=== PATIENT | female | born 1950 | race Hispanic/Latino ===

== ENCOUNTER → 2022-11-18 | Outpatient (CLI) | payer MEDICARE | END | disposition home or self-care (01) | LOC: RAH 09:05 | PROVIDERS: ATTEND Internal Medicine | DX: K43.9 Ventral hernia without obstruction or gangrene (principal); K76.89 Other specified diseases of liver; R19.00 Intra-abdominal and pelvic swelling, mass and lump, unspecified site; K80.20 Calculus of gallbladder without cholecystitis without obstruction | CPT/HCPCS: 76700 ==

== ENCOUNTER 2024-08-24 18:54 | Inpatient (IN) | payer MEDICARE ==
[~2024-08-24] VITALS: Ht 167.6 cm; Wt 70.2 kg
[2024-08-24 21:20] LABS: BASOPHILS # (AUTO) 0.04 K/uL (0.00-0.20); BASOPHILS % (AUTO) 0.4 % (0.0-5.0); EOSINOPHILS # (AUTO) 0.07 K/uL (0.00-0.70); EOSINOPHILS % (AUTO) 0.8 % (0.0-8.0); HEMATOCRIT 30.7 % (36-48); LYMPHOCYTES # (AUTO) 1.4 K/uL (1.0-4.8); LYMPHOCYTES % (AUTO) 15.6 % (21.0-51.0); MEAN CORPUSCULAR HEMOGLOBIN 32.6 pg (27.0-33.0); MEAN CORPUSCULAR HGB CONC 33.2 g/dL (32.0-36.0); MEAN CORPUSCULAR VOLUME 98.1 fL (79-99); MONOCYTES # (AUTO) 0.7 K/uL (0.1-1.0); MONOCYTES % (AUTO) 7.4 % (3.0-13.0); NEUTROPHILS # (AUTO) 6.8 K/uL (1.8-7.7); NEUTROPHILS % (AUTO) 74.7 % (40.0-77.0); PLATELET COUNT (AUTO) 310 K/uL (130-400); RED BLOOD CELL COUNT(AUTO) 3.13 MIL/uL (4.00-5.50); RED CELL DISTRIBUTION WIDTH 14.1 % (11.0-15.5); WHITE BLOOD COUNT (AUTO) 9.1 K/uL (4.8-10.8)
[2024-08-24] MEDS ORDERED: doCUSate SODIUM 100 MG CAP PO PRN (21:30)
[2024-08-24] MEDS ORDERED: hydrALAZine 20MG/ML VIAL IV PRN (21:30)
[2024-08-24] MEDS ORDERED: acetaMINOPHEN 650 MG SUPPOSITORY RC PRN (21:30)
[2024-08-24] MEDS ORDERED: LACTULOSE 20 GM/30 ML UDCUP PO PRN (21:30)
[2024-08-24] MEDS ORDERED: TEMAZepam 15 MG CAPSULE PO PRN (21:30)
[2024-08-24] MEDS: 0.9%NACL 1000ML 1,000 ML IV SCH (21:33)
[2024-08-24 21:48] LABS: CREATININE 0.6 mg/dL (0.5-1.0); POTASSIUM 4.3 mmol/L (3.5-5.1)
--- NOTE | 2024-08-24 21:52 | HP ---
[facility] HISTORY & PHYSICAL Date Patient Seen: Aug 24, 2024 Time of Visit: 21:52 Supervising Physician: Dr. Noriega Primary Care Physician: Dr. Vu Mcallister Outpatient Specialists: Inpatient Consults: GI PROBLEM LIST: Critically elevated alkaline phosphatase, POA, r/o cirrhosis of the liver, hepatitis, liver cancer, Vit D deficiency, blocked bile ducts, medication induced liver injury Transaminitis, POA Anorexia, POA Constant Intractable abdominal pain with associated nausea and vomiting worsening over three-month Anemia of chronic disease Electrolyte derangement (hyponatremia, hypochloremia) Diabetes mellitus with hyperglycemia Proteinuria and urobilinuria Chronic problem list: History of liver cyst diagnosed in 1998, Diabetes mellitus, Hypertension, hyperlipidemia, vitamin-D deficiency, vitamin B12 deficiency, endometriosis, hernia, recent UTI in June 11 Endometriosis, cholelithiasis HPI: Ms. Dutton is a 74-year-old female who presented to [facility] [place] direct [place] with the diagnosis of acute liver failure from the clinic. Per clinic [employer] the patient presented to the clinic crying thinking she was going to . She did blood work which showed the elevated an alkaline phosphatase of 921, total bilirubin 4.0, AST 45, ALT 36. The patient reported that since April she has been nauseated, complains of mid abdominal pain, and food intolerance. Patient reports that she been drinking the boost drinks due to anorexia, and she has lost 35 lb since April. Remarkable lab results: Hemoglobin 10.2, hematocrit 30.7, RBC 3.1, immature gran % 1.1, lymph % 15.6. Na 133, chloride 100, glucose 140, UA: Positive for protein, urobilinogen. I went to assess the patient at bedside. Patient's eyes were slightly jaundiced, abdomen was very jaundiced. Mouth had thrush. Breathing was even unlabored, was in no distress. Stat labs were drawn CT abdomen and pelvis was done. CT Pending results. I informed the patient of plan of care. PAST MEDICAL HX: see above PAST SURGICAL HX: Hernia repair SOCIAL HISTORY: No tobacco, ETOH, or illicit drug use Coded Allergies: No Known Allergies (Unverified Allergy, Unknown, 08/24/24) REVIEW OF SYSTEMS: 12 point ROS reviewed with patient. Pertinent positives mentioned above. Otherwise negative. PHYSICAL EXAM: GENERAL: alert, weak, awake oriented x 3 HEENT: EOMI, Sclera non icteric, moist mucosa NECK: Supple, no JVD, trachea midline LUNGS: Clear breath sounds bilaterally. No wheezes HEART: Regular rate and rhythm. Normal S1 and S2, without murmurs ABD: Abdomen soft, nontender. Bowel sounds present EXT: No clubbing cyanosis or edema NEURO: Alert and oriented X3, follows commands Vital Signs (last 8hr) Date Time Temp Pulse Resp B/P (MAP) Pulse Ox O2 Delivery O2 Flow Rate FiO2 08/24/24 21:03 92 16 123/76 98 Room Air* 0 21 08/24/24 19:38 98.2 98 16 131/80 98 Room Air* 0 21 08/24/24 18:56 98.2 79 20 158/93 99 Room Air LABS: Hematology Labs: Test 08/24/24 21:11 Range/Units White Blood Count 9.1 4.8-10.8 K/uL Red Blood Count 3.13 L 4.00-5.50 MIL/uL Hemoglobin 10.2 L 12.0-16.0 g/dL Hematocrit 30.7 L 36-48 % Mean Corpuscular Volume 98.1 79-99 fL Mean Corpuscular Hemoglobin 32.6 27.0-33.0 pg Mean Corpuscular Hemoglobin Concent 33.2 32.0-36.0 g/dL Red Cell Distribution Width 14.1 11.0-15.5 % Platelet Count 310 130-400 K/uL Mean Platelet Volume 9.7 7.5-10.5 fL Immature Granulocyte % (Auto) 1.1 H 0-1 % Neutrophils (%) (Auto) 74.7 40.0-77.0 % Lymphocytes (%) (Auto) 15.6 L 21.0-51.0 % Monocytes (%) (Auto) 7.4 3.0-13.0 % Eosinophils (%) (Auto) 0.8 0.0-8.0 % Basophils (%) (Auto) 0.4 0.0-5.0 % Neutrophils # (Auto) 6.8 1.8-7.7 K/uL Lymphocytes # (Auto) 1.4 1.0-4.8 K/uL Monocytes # (Auto) 0.7 0.1-1.0 K/uL Eosinophils # (Auto) 0.07 0.00-0.70 K/uL Basophils # (Auto) 0.04 0.00-0.20 K/uL Absolute Immature Granulocyte (auto 0.10 0-1 K/uL Nucleated Red Blood Cells 0.0 0.0-0.19 % Chemistry Labs: Test 08/24/24 21:11 Range/Units Sodium Level 133 L 136-145 mmol/L Potassium Level 4.3 3.5-5.1 mmol/L Chloride Level 100 L 101-111 mmol/L Carbon Dioxide Level 23 21-32 mmol/L Blood Urea Nitrogen 12 7-18 mg/dL Creatinine 0.6 0.5-1.0 mg/dL Glomerular Filtration Rate Calc 93 >90 mL/min Random Glucose 140 H 70-105 mg/dL Lactic Acid Level 1.8 0.8-2.5 mmol/L Total Calcium 8.8 8.5-10.1 mg/dL DIAGNOSTICS / RADIOLOGY RESULTS: [ ] PLAN Admit to medical floor with telemetry monitoring. Obtain CT abdomen and pelvis with and without contrast. Obtain sonogram of liver and gallbladder. Consult GI. Stat labs were done on arrival. Other labs: Acute hepatitis panel, vitamin-D level, vitamin-B levels UA collected on arrival and negative. P.r.n. medications for: Pain management, nausea, vomiting, constipation, hypertension Monitor liver and kidney function. Monitor electrolytes and treat accordingly. DVT and GI prophylaxis. A.m. labs. NEURO: Minimize central acting medications as possible. Maintain fall precautions, adequate lighting during the day PULMONARY: Supplemental 02 as needed. Maintain aspiration precautions at all times CARDIOVASCULAR: Follow hemodynamics. Vital signs per facility protocol GI & NUTRITION: Continue with nutritional support. Continue stool softeners and laxatives as needed. KIDNEYS & ELECTROLYTES: Strict monitoring of intake, output and overall fluid balance. Avoid nephrotoxic medications to the extent possible. Medications to be dosed according to renal function. Monitor electrolytes and replace as needed ENDOCRINE: Maintain blood glucose between 100-180 at all times. Hypoglycemia protocol in place INFECTIOUS DISEASE: Trend temperature, WBC and procalcitonin level Follow cultures, deescalate antibiotics as soon as possible. Panculture if new onset fever ONCOLOGY/HEMATOLOGY/COAGULATION: Monitor for s/s of bleeding Monitor hemoglobin, coagulation studies as needed SKIN: Pressure ulcer prevention per facility protocol Specialty mattress ORTHO/REHAB: Continue PT/OT Prophylaxis: Continue GI and DVT prophylaxis Code Status: Full Resuscitation Disposition: KAREN HORNEP Aug 24, 2024 21:52
[2024-08-24] MEDS ORDERED: IOHEXOL-350 75 ML VIAL IV ONE (21:58)
[2024-08-24 22:01] LABS: ALBUMIN 1.8 g/dL (3.5-5.0); BILIRUBIN,TOTAL 3.5 mg/dL (0.2-1.0); TOTAL PROTEIN, SERUM 7.2 g/dL (6.0-8.3)
--- NOTE | 2024-08-24 22:12 | NUR ---
1ST ATTEMPT TO CALL REPORT NOW. NURSE IS BUSY WILL CALL BACK
[2024-08-24 22:38] VITALS: BP 131/66; PULSE 95; RESP 20; TEMP 98.4
--- NOTE | 2024-08-24 22:38 | NUR ---
PATIENT ARRIVED TO THE FLOOR AT THIS TIME VIA ER STRETCHER. PATIENT AMBULATED TO BED. AAOX3, NO S/S OF DISTRESS NOTED AT THIS TIME. CALL BED WITHIN REACH
[2024-08-24 23:00] VITALS: O2SAT 99
[2024-08-25] VITALS (7 sets, daily range): BP systolic 112–135; BP diastolic 61–81; PULSE 76–87; RESP 16–20; TEMP 97.5–98.2; O2SAT 100
[2024-08-25 03:34] LABS: APPEARANCE,URINE CLEAR (CLEAR); BACTERIA,URINE RARE /HPF (None Seen); BILIRUBIN,URINE NEGATIVE (NEGATIVE); COLOR,URINE YELLOW (YELLOW); GLUCOSE, URINE (UA) NEGATIVE (NEGATIVE); KETONES,URINE NEGATIVE (NEGATIVE); LEUKOCYTE ESTERASE ,URINE NEGATIVE Leu/uL (NEGATIVE); MUCUS,URINE RARE LPF (None Seen); NITRATE,URINE NEGATIVE (NEGATIVE); PROTEIN,URINE 20 mg/dL (NEGATIVE); SQUAMOUS EPITHELIAL CELL,UR RARE /HPF (0-2)
[2024-08-25 05:16] LABS: HEMATOCRIT 30.8 % (36-48); MEAN CORPUSCULAR HEMOGLOBIN 32.9 pg (27.0-33.0); MEAN CORPUSCULAR HGB CONC 32.5 g/dL (32.0-36.0); MEAN CORPUSCULAR VOLUME 101.3 fL (79-99); RED BLOOD CELL COUNT(AUTO) 3.04 MIL/uL (4.00-5.50); RED CELL DISTRIBUTION WIDTH 14.1 % (11.0-15.5); WHITE BLOOD COUNT (AUTO) 7.4 K/uL (4.8-10.8)
[2024-08-25 05:44] LABS: CREATININE 0.6 mg/dL (0.5-1.0); MAGNESIUM 1.8 mg/dL (1.80-2.40); PHOSPHORUS 3.3 mg/dL (2.5-4.9); POTASSIUM 3.3 mmol/L (3.5-5.1); THYROID STIMULATING HORMONE 1.1 uIU/mL (0.36-3.74)
[2024-08-25] MEDS: INSULIN humuLIN R 100 UNIT/ML 3ML SQ SCH (06:49)
--- NOTE | 2024-08-25 08:00 | NUR ---
SCD'S PATIENT HAS ORDER FOR SCDS TO BE PLACED. PATIENT REFUSING TO HAVE THEM PLACED. NURSE EDUCATED ON REASONS FOR THEM TO BE PLACED AND RISKS/COMPLICATIONS FOR THEM NOT TO BE PLACED. PATIENT VOICED UNDERSTANDING HOWEVER, REFUSED. REFUSAL FORM SIGNED AND FILED IN CHART. PROVIDER NOTIFIED. WILL CONTINUE TO MONITOR.
[2024-08-25 10:46] LABS: ALBUMIN 1.8 g/dL (3.5-5.0); BILIRUBIN,DIRECT 2.4 mg/dL (0.0-0.3); BILIRUBIN,TOTAL 2.8 mg/dL (0.2-1.0); TOTAL PROTEIN, SERUM 6.3 g/dL (6.0-8.3)
--- NOTE | 2024-08-25 11:09 | HMCIMG ---
ULTRASOUND ABDOMEN LIMITED INDICATION: Right upper abdominal pain COMPARISON: None FINDINGS: The liver is enlarged and increased in echogenicity; multiple simple cysts scattered throughout the liver parenchyma, largest within the right hepatic lobe measuring up to 4.1 cm, and largest within the left hepatic lobe measuring up to 2.6 cm. Main portal vein is patent, and normal direction of vascular flow demonstrated. The common bile duct diameter measures 4.0 mm. Gallbladder is distended. Multiple echogenic shadowing gallstones without associated pericholecystic fluid. No sonographic Marx's sign elicited by the ultrasound apron operator. Wall thickness measures 3.0 mm. Visible portions of the pancreas appear normal. The right kidney measures 9.0 x 3.4 x 4.3 cm,and is normal in echogenicity, without evidence for hydronephrosis.0.6 cm echogenic shadowing stone at the lower pole of the right kidney. No free fluid demonstrated. IMPRESSION: 1. Cholelithiasis without cholecystitis. 2. Enlarged polycystic liver. 3. Nonobstructing right nephrolithiasis.
--- NOTE | 2024-08-25 13:19 | PN ---
[facility] PROGRESS NOTE Date Patient Seen: Aug 25, 2024 Time of Visit: 13:18 Supervising Physician: Dr. Casey Noriega Primary Care Physician: Dr. Vu Mcallister Outpatient Specialists: Inpatient Consults: GI PROBLEM LIST: Elevated alkaline phosphatase, POA, r/o cirrhosis of the liver, hepatitis, liver cancer, Vit D deficiency, blocked bile ducts, medication induced liver injury Transaminitis, POA Anorexia with dysgeusia, POA Constant Intractable abdominal pain with associated nausea and vomiting worsening over three-month Proteinuria and urobilinuria Anemia of chronic disease Electrolyte derangement (hyponatremia, hypochloremia) Diabetes mellitus type 2 Chronic constipation Chronic problem list: History of liver cyst diagnosed in 1998,Hypertension, hyperlipidemia, vitamin-D deficiency, vitamin B12 deficiency, endometriosis, hernia, recent UTI in June 11 Endometriosis, cholelithiasis INTERVAL HISTORY: Patient assessed at bedside. AAOX3. Currently on room air. States she has been drinking chocolate boost shakes for the last three months. Complains of severe constipation ever since she was a child. Alk phos decreased slightly. US abdomen showed cholelithiasis without cholecystitis, enlarged polycystic liver, nonobstructing right nephrolithiasis. CT abdomen/pelvis done but pending to be read. Pending GI to evaluate. at bedside. REVIEW OF SYSTEMS: 12 point ROS reviewed with patient. Pertinent positives mentioned above. Otherwise negative. PHYSICAL EXAM: GENERAL: alert, weak, awake oriented x 3 HEENT: EOMI, Sclera non icteric, moist mucosa NECK: Supple, no JVD, trachea midline LUNGS: Clear breath sounds bilaterally. No wheezes HEART: Regular rate and rhythm. Normal S1 and S2, without murmurs ABD: Abdomen soft, nontender. Bowel sounds present EXT: No clubbing cyanosis or edema NEURO: Alert and oriented X3, follows commands Vital Signs (last 8hr) Date Time Temp Pulse Resp B/P (MAP) Pulse Ox O2 Delivery O2 Flow Rate FiO2 08/25/24 12:00 98.1 87 16 128/69 98 Room Air 21 08/25/24 08:00 98.1 86 16 115/73 100 Room Air 21 LABS: Hematology Labs: Test 08/25/24 04:16 08/24/24 21:11 Range/Units White Blood Count 7.4 4.8-10.8 K/uL Red Blood Count 3.04 L 4.00-5.50 MIL/uL Hemoglobin 10.0 L 12.0-16.0 g/dL Hematocrit 30.8 L 36-48 % Mean Corpuscular Volume 101.3 H 79-99 fL Mean Corpuscular Hemoglobin 32.9 27.0-33.0 pg Mean Corpuscular Hemoglobin Concent 32.5 32.0-36.0 g/dL Red Cell Distribution Width 14.1 11.0-15.5 % Platelet Count 429 #H 130-400 K/uL Mean Platelet Volume 8.7 7.5-10.5 fL Nucleated Red Blood Cells 0.0 0.0-0.19 % Immature Granulocyte % (Auto) 1.1 H 0-1 % Neutrophils (%) (Auto) 74.7 40.0-77.0 % Lymphocytes (%) (Auto) 15.6 L 21.0-51.0 % Monocytes (%) (Auto) 7.4 3.0-13.0 % Eosinophils (%) (Auto) 0.8 0.0-8.0 % Basophils (%) (Auto) 0.4 0.0-5.0 % Neutrophils # (Auto) 6.8 1.8-7.7 K/uL Lymphocytes # (Auto) 1.4 1.0-4.8 K/uL Monocytes # (Auto) 0.7 0.1-1.0 K/uL Eosinophils # (Auto) 0.07 0.00-0.70 K/uL Basophils # (Auto) 0.04 0.00-0.20 K/uL Absolute Immature Granulocyte (auto 0.10 0-1 K/uL Chemistry Labs: Test 08/25/24 11:30 08/25/24 04:16 08/24/24 21:11 Range/Units Whole Blood Glucose 131 H 70-110 MG/DL Sodium Level 136 136-145 mmol/L Potassium Level 3.3 L 3.5-5.1 mmol/L Chloride Level 104 101-111 mmol/L Carbon Dioxide Level 24 21-32 mmol/L Blood Urea Nitrogen 9 7-18 mg/dL Creatinine 0.6 0.5-1.0 mg/dL Glomerular Filtration Rate Calc 93 >90 mL/min Random Glucose 119 H 70-105 mg/dL Total Calcium 8.1 L 8.5-10.1 mg/dL Phosphorus Level 3.3 2.5-4.9 mg/dL Magnesium Level 1.80 1.80-2.40 mg/dL Total Bilirubin 2.8 H 0.2-1.0 mg/dL Direct Bilirubin 2.4 H 0.0-0.3 mg/dL Aspartate Amino Transf (AST/SGOT) 37 10-37 U/L Alanine Aminotransferase (ALT/SGPT) 32 # 12-78 U/L Alkaline Phosphatase 745 *H 50-136 U/L Total Protein 6.3 6.0-8.3 g/dL Albumin 1.8 L 3.5-5.0 g/dL Vitamin B12 Level 2463 H 193-986 pg/mL Thyroid Stimulating Hormone (TSH) 1.10 0.36-3.74 uIU/mL Lactic Acid Level 1.8 0.8-2.5 mmol/L Amylase Level 19 L 25-115 U/L Lipase 16 16-77 U/L DIAGNOSTICS / RADIOLOGY RESULTS: ROCEDURE: [id number] - US ABDOMINAL RUQ\LTD ULTRASOUND ABDOMEN LIMITED INDICATION: Right upper abdominal pain COMPARISON: None FINDINGS: The liver is enlarged and increased in echogenicity; multiple simple cysts scattered throughout the liver parenchyma, largest within the right hepatic lobe measuring up to 4.1 cm, and largest within the left hepatic lobe measuring up to 2.6 cm. Main portal vein is patent, and normal direction of vascular flow demonstrated. The common bile duct diameter measures 4.0 mm. Gallbladder is distended. Multiple echogenic shadowing gallstones without associated pericholecystic fluid. No sonographic Marx's sign elicited by the ultrasound gear hobber set up operator. Wall thickness measures 3.0 mm. Visible portions of the pancreas appear normal. The right kidney measures 9.0 x 3.4 x 4.3 cm,and is normal in echogenicity, without evidence for hydronephrosis.0.6 cm echogenic shadowing stone at the lower pole of the right kidney. No free fluid demonstrated. IMPRESSION: 1. Cholelithiasis without cholecystitis. 2. Enlarged polycystic liver. 3. Nonobstructing right nephrolithiasis. PLAN CT abdomen and pelvis with and without contrast done but pending to be read Pending GI to evaluate Other labs: Acute hepatitis panel, vitamin-D level, vitamin-B levels UA collected on arrival and negative. P.r.n. medications for: Pain management, nausea, vomiting, constipation, hypertension Monitor liver and kidney function. Monitor electrolytes and treat accordingly. DVT and GI prophylaxis. A.m. labs. NEURO: Minimize central acting medications as possible. Maintain fall precautions, adequate lighting during the day PULMONARY: Supplemental 02 as needed. Maintain aspiration precautions at all times CARDIOVASCULAR: Follow hemodynamics. Vital signs per facility protocol GI & NUTRITION: Continue with nutritional support. Continue stool softeners and laxatives as needed. KIDNEYS & ELECTROLYTES: Strict monitoring of intake, output and overall fluid balance. Avoid nephrotoxic medications to the extent possible. Medications to be dosed according to renal function. Monitor electrolytes and replace as needed ENDOCRINE: Maintain blood glucose between 100-180 at all times. Hypoglycemia protocol in place INFECTIOUS DISEASE: Trend temperature, WBC and procalcitonin level Follow cultures, deescalate antibiotics as soon as possible. Panculture if new onset fever ONCOLOGY/HEMATOLOGY/COAGULATION: Monitor for s/s of bleeding Monitor hemoglobin, coagulation studies as needed SKIN: Pressure ulcer prevention per facility protocol Specialty mattress ORTHO/REHAB: Continue PT/OT Prophylaxis: Continue GI and DVT prophylaxis Code Status: Full Resuscitation Disposition: ISRAEL MONSIVAIS Aug 25, 2024 13:18
--- NOTE | 2024-08-25 18:55 | HMCIMG ---
CT ABDOMEN/PELVIS W/WO CONTRAS CLINICAL HISTORY: worsening pain over 4 months, transaminitis COMPARISON: None TECHNIQUE: Sequential axial images of abdomen and pelvis without and with 75 mL of Omnipaque 350 IV contrast with sagittal and coronal reconstructions. CT was performed with one or more of the following dose reduction techniques: automated exposure control, adjustment of the mA and/or kV according to patient size, or use of iterative reconstruction technique. FINDINGS: There is mild atelectasis or scarring in the lung bases. There is a moderate-sized hiatal hernia. There are multiple hepatic cysts with intrahepatic biliary dilatation as well as multiple gallbladder calculi in the hydropic gallbladder. There appear to be calcifications in the common duct at the pancreatic head. There is diffuse fatty infiltration of the pancreas. The adrenal glands are unremarkable. There is nonobstructive right nephrolithiasis. The left kidney and bladder are unremarkable. There is no identified bowel structures. There are multiple sigmoid colon diverticuli with mild acute diverticulitis demonstrated on image 15 of series 5 as well as image 73 of series 3 and also obliquely on image 57 of series 3 and image 14 of series 5. Additionally demonstrated is a large fat-containing ventral hernia with fluid and stranding most worrisome for incarceration and strangulated omentum. The uterus is likely surgically absent. There is grade 1 retrolisthesis of L2 on L3. IMPRESSION: Cholelithiasis with choledocholithiasis and likely obstructive biliary colic. Acute diverticulitis. Fat-containing ventral hernia with findings worrisome for incarcerated and strangulated omentum.
--- NOTE | 2024-08-25 19:02 | CONS ---
GASTROENTEROLOGY CONSULTATION REFERRING PHYSICIAN: Camryn Noriega MD PRIMARY PHYSICIAN: REASON FOR CONSULTATION: Epigastric, right lower quadrant and left lower quadrant abdominal pain; nausea; vomiting; weight loss; elevated liver chemistries and anemia; also abnormal abdominal imaging with hepatomegaly and polycystic liver plus cholelithiasis. HISTORY OF PRESENT ILLNESS: The patient is a 74-year-old female with history of hysterectomy with bilateral salpingo-oophorectomy for nonmalignant disease, also history of vitamin B12 deficiency prior diabetes mellitus, hypertension, hyperlipidemia, vitamin D deficiency, who is now admitted with elevated liver chemistries, jaundice, and who also has been complaining of epigastric pain, right lower quadrant abdominal pain, left lower quadrant abdominal pain, recent nausea, vomiting, weight loss, dysgeusia, constipation and weight loss for which GI evaluation and management are sought. According to the patient, she has been having sharp right lower quadrant abdominal pain over the last 4 months. This pain would occur when she has the urge to move her bowels, and usually, this is relieved with bowel movements. The patient also reports 3 days ago, she had an episode of sharp right lower quadrant abdominal pain that was different from prior episode, but after bowel movement, the pain seemed to have subsided. Since then she has been having dull right lower quadrant abdominal pain, which has been nonradiating and constant, unchanged with p.o. intake and bowel movement. She also reports new left lower quadrant dull abdominal pain that is constant since experiencing that sharp right lower quadrant pain 3 days ago. The pain in the left lower abdominal quadrant is nonradiating and has been unchanged with p.o. food intake and bowel movements. The patient reports weight loss of 35 pounds unintentional over the last 4 months. She admits to dysgeusia in the last 4 months, but reports today that appears to have resolved with p.o. food intake. The patient gives history of diabetes mellitus diagnosed since October, and since then, she has changed her diet with normalization of her blood pressure and blood sugars. She reports she has been on Atkins diet since 11/12/2023. The patient is noted to have cholelithiasis on ultrasound of the abdomen. There is also hepatomegaly and polycystic liver noted. The patient denies any abdominal trauma, any history of PUD or gross GI bleed. She denies any diarrhea. She has no family history of colon cancer, stomach cancer, gallbladder disease, pancreatic disease, or liver disease. ALLERGIES: No known drug allergies. PAST MEDICAL/SURGICAL HISTORY: See above, also history of hypertension, diabetes mellitus in the past, which she reports has resolved with dietary changes and herbal tea, which she takes also for constipation. The patient denies any coronary artery disease, myocardial infarction, cerebrovascular accident, seizure disorder, peptic ulcer, or asthma. She has undergone total abdominal hysterectomy with bilateral salpingo-oophorectomy for complications related to endometriosis. She denies any history of uterine malignancy. She also reports incisional hernia repair. FAMILY HISTORY: No family history of colon cancer, stomach cancer, IBD, liver disease, gallbladder disease, pancreatic disease, esophageal disorders. REVIEW OF SYSTEMS: CONSTITUTIONAL: See above, also protuberance in epigastric and left upper abdomen. She has had episodes of nausea, vomiting as above and abdominal pain as described. She denies any fever, chills, or gross GI bleed. She has weight loss as noted above. OPHTHALMOLOGY: No recent vision change, eye pain, periorbital swelling, redness, or drainage. DERMATOLOGY: Denies any rash, bruise, or excessive dry skin. ENT: No ear pain, tinnitus, hearing loss, nasal congestion, rhinorrhea, sore throat, or voice changes. RESPIRATORY: She denies wheeze, rhinorrhea, epistaxis, chest congestion, or cough. CARDIOVASCULAR: No chest pain, palpitation, or leg swelling. GENITOURINARY: No dysuria, hematuria, urgency, or frequency. GASTROINTESTINAL: The patient reports epigastric and lower abdominal pains have subsided now. Nausea and vomiting also have subsided. She denies melena or hematochezia, and constipation has resolved now. MUSCULOSKELETAL: No joint pain, joint swelling, or backache. NEUROLOGY: No tingling, numbness, vision changes, or hearing loss. PSYCHIATRY: No history of depression, anxiety, suicidal plans or ideation. ENDOCRINOLOGY: History of diabetes mellitus, prior. This has resolved now with dietary changes. She denies any thyroid disease or hyperlipidemia to her knowledge. PHYSICAL EXAMINATION: GENERAL: The patient is a 74-year-old female who appears her stated age, seen resting in bed, in no acute respiratory distress, but with noted protuberance in the epigastric and left upper quadrant area of abdomen. VITAL SIGNS: Blood pressure 128/69, heart rate 87, respirations 16, temperature 98.1 degrees Fahrenheit. SKIN: Warm, dry with no active dermatosis. HEENT: The patient's head is normocephalic, atraumatic. Pupils reactive, sclerae are mildly icteric. Oral mucosa was moist, no obvious lesion, no blood noted. Nasal mucosa showed no epistaxis, septal deviation, or perforation. NECK: No mass or jugular venous distention, no lymphadenopathy or thyromegaly. LUNGS: Clear to auscultation bilaterally. HEART: S1, S2. No obvious murmurs, rubs, or gallops ausculated. ABDOMEN: Asymmetric with the area of protuberance in epigastric and extending to the left upper quadrant area with palpable firmness, a nonreducible incisional hernia with tenderness noted. The hernia size is at least 10-12 cm x 6 cm. EXTREMITIES: No cyanosis, clubbing, or edema. RECTAL: Deferred. LABORATORY DATA: WBC 7.4, hemoglobin 10, hematocrit 30.8, MCV of 101.3, platelet count of 429. Serum chemistry revealed sodium 136, potassium 3.3, chloride of 104, CO2 of 24, BUN of 9, creatinine 0.6, GFR of 93, random glucose 119. Total calcium 8.1, phosphorus of 3.3, magnesium of 1.8, total bilirubin of 2.8, direct bilirubin of 2.4, AST 37, ALT 32, alkaline phosphatase 745, total protein of 6.3, albumin of 1.8. Vitamin B12 level 2463. TSH 1.10. Urine showed yellow, clear specimen with pH of 6, specific gravity greater than 1.050, protein 20, glucose and ketones negative, trace of occult blood, nitrite and bilirubin negative, urobilinogen 2, leukocyte esterase negative, rbc's 2-5, wbc's 2-5, rare squamous epithelial cells, and rare urine bacteria noted. Ultrasound of the abdomen done showed cholelithiasis without cholecystitis and multiple cysts in the liver bilaterally. There was right nephrolithiasis noted. Gallbladder was also distended and the common bile duct measured 4 mm. IMPRESSION: 1. Epigastric pain and tenderness with nausea, vomiting, possibly related to her incisional hernia. Both peptic ulcer disease, Helicobacter pylori disease also of concern. Other hepatobiliary disorders cannot be excluded with elevated liver chemistries as above too. 2. Acute anemia with lower abdominal pain as above, suggests possible colon ulcers, colon polyps, or colon cancer. 3. Recent nausea, vomiting, may be related to hepatobiliary disorders, peptic ulcer disease, or related to lower abdominal pathology as noted above. 4. Elevated liver chemistries in this patient who had been on herbal medications indicate possible primarily cholestatic liver disease, which may be related to senna usage. The patient is taking a herbal medication called Smooth Move which has senna and she is chronically on this. Cholestasis with a hepatitis picture can occur with senna. Other etiology of elevated liver chemistries could include inherited or acquired cholestatic liver disease and malignancy cannot be excluded too, since she has weight loss. Again, though senna causing hepatitis and marked cholestasis most likely. 6. Polycystic liver disease. 7. May be causing elevation of her liver chemistries also and even nausea, vomiting. Though quite large individually, collectively, the liver is enlarged. 8. Incisional hernia, which may contribute to nausea, vomiting as noted above. 9. Cholelithiasis, which may cause nausea and vomiting too. 10. Possible fatty liver and elevated liver chemistries would mean she may have contributions of steatohepatitis and is at risk for hepatic cirrhosis. 11. Dysgeusia, possibly from herbal medications or related to her cholestasis. 12. Chronic constipation, possibly secondary to lack of water intake as she reports she takes about 32 ounces of water daily and this is an increased intake compared to her usual quantity of water intake. The patient also reports history of diverticulosis coli for many years. 13. Past history of endometriosis. 14. History of diabetes mellitus in the past as per patient. 15. History of hypertension, in the past as per patient. 16. Thrombocytosis. 17. The patient has elevated vitamin B12 level and reports history of kendra doses of vitamin B12 p.o. So liver enzyme elevations cannot be excluded too. PLAN: 1. Recommend EGD for further evaluation and management. 2. Keep on a clear liquid diet for now. 3. Start MiraLax 17 g in 8 ounces of clear liquid p.o. daily. 4. Antireflux measures. 5. Follow up on results of CT scan of the abdomen done earlier. 6. Recommend a colonoscopy also. 7. Recommend surgical evaluation for a possible repair of her incisional hernia. TID: [id number] RECEIPT: [id number] cc: CAMRYN NORIEGA MD(User),
--- NOTE | 2024-08-25 19:07 | NUR ---
INITIAL/DCP-HOME Met w pt and spouse this evening to discuss dcp. Pt admitted w acute liver failure/Jaundice. EC spouse Carlton Dutton [phone]. PCP: Vu Helms Preferred pharmacy: [facility]. PT lives w her spouse. She is independent w ambulation and ADLs. She does not own any DME or receive services. PT is able to drive where needed. Discharge goal is to return home. Addendum: 08/25/24 at 1909 by ROBIN STRONG CM Amended: Links added.
--- NOTE | 2024-08-25 22:03 | CONS ---
GASTROINTESTINAL CONSULTATION The primary physician name is Marta Mcallister MD IMPRESSION: 6. Polycystic liver disease, may be causing elevation of her liver chemistries also and even nausea and vomiting, though not quite large individually collectively, the liver cyst is causing enlargement of the liver. 16. The ____ liver enzyme elevation cannot be excluded too, should be deleted. PLAN: 8. Discontinue use of the laxative "____" now. 9. Continue to monitor liver chemistries. A decrease in serum enzyme levels of her liver chemistry is expected when senna is stopped. 10. Hold vitamin B12 and recheck levels. Please note also that her last CT scan and ultrasound of the abdomen were individually reviewed and all other labs as discussed above. Thank you Dr. Noriega for allowing me to participate in the care of this patient. At least 90 minutes have been spent with this patient and her in assessing her condition and explaining the findings and disease processes involved and expected plan of care. All questions from the patient and her were answered. The patient has declined any other medical intervention. TID: [id number] RECEIPT: [id number]
--- NOTE | 2024-08-25 22:48 | CONS ---
GASTROENTEROLOGY CONSULTATION REFERRING PHYSICIAN: Camryn Noriega MD PRIMARY PHYSICIAN: Marta Mcallister MD REASON FOR CONSULTATION: Epigastric, right lower quadrant and left lower quadrant abdominal pain; nausea; vomiting; weight loss; elevated liver chemistries and anemia; also abnormal abdominal imaging with hepatomegaly and polycystic liver plus cholelithiasis. HISTORY OF PRESENT ILLNESS: The patient is a 74-year-old female with history of hysterectomy with bilateral salpingo-oophorectomy for nonmalignant disease, also history of vitamin B12 deficiency prior diabetes mellitus, hypertension, hyperlipidemia, vitamin D deficiency, who is now admitted with elevated liver chemistries, jaundice, and who also has been complaining of epigastric pain, right lower quadrant abdominal pain, left lower quadrant abdominal pain, recent nausea, vomiting, weight loss, dysgeusia, constipation and weight loss for which GI evaluation and management are sought. According to the patient, she has been having sharp right lower quadrant abdominal pain over the last 4 months. This pain would occur when she has the urge to move her bowels, and usually, this is relieved with bowel movements. The patient also reports 3 days ago, she had an episode of sharp right lower quadrant abdominal pain that was different from prior episode, but after bowel movement, the pain seemed to have subsided. Since then she has been having dull right lower quadrant abdominal pain, which has been nonradiating and constant, unchanged with p.o. intake and bowel movement. She also reports new left lower quadrant dull abdominal pain that is constant since experiencing that sharp right lower quadrant pain 3 days ago. The pain in the left lower abdominal quadrant is nonradiating and has been unchanged with p.o. food intake and bowel movements. The patient reports weight loss of 35 pounds unintentional over the last 4 months. She admits to dysgeusia in the last 4 months, but reports today that appears to have resolved with p.o. food intake. The patient gives history of diabetes mellitus diagnosed since October, and since then, she has changed her diet with normalization of her blood pressure and blood sugars. She reports she has been on Atkins diet since 11/12/2023. The patient is noted to have cholelithiasis on ultrasound of the abdomen. There is also hepatomegaly and polycystic liver noted. The patient denies any abdominal trauma, any history of PUD or gross GI bleed. She denies any diarrhea. She has no family history of colon cancer, stomach cancer, gallbladder disease, pancreatic disease, or liver disease. ALLERGIES: No known drug allergies. PAST MEDICAL/SURGICAL HISTORY: See above, also history of hypertension, diabetes mellitus in the past, which she reports has resolved with dietary changes and herbal tea, which she takes also for constipation. The patient denies any coronary artery disease, myocardial infarction, cerebrovascular accident, seizure disorder, peptic ulcer, or asthma. She has undergone total abdominal hysterectomy with bilateral salpingo-oophorectomy for complications related to endometriosis. She denies any history of uterine malignancy. She also reports incisional hernia repair. FAMILY HISTORY: No family history of colon cancer, stomach cancer, IBD, liver disease, gallbladder disease, pancreatic disease, esophageal disorders. REVIEW OF SYSTEMS: CONSTITUTIONAL: See above, also protuberance in epigastric and left upper abdomen. She has had episodes of nausea, vomiting as above and abdominal pain as described. She denies any fever, chills, or gross GI bleed. She has weight loss as noted above. OPHTHALMOLOGY: No recent vision change, eye pain, periorbital swelling, redness, or drainage. DERMATOLOGY: Denies any rash, bruise, or excessive dry skin. ENT: No ear pain, tinnitus, hearing loss, nasal congestion, rhinorrhea, sore throat, or voice changes. RESPIRATORY: She denies wheeze, rhinorrhea, epistaxis, chest congestion, or cough. CARDIOVASCULAR: No chest pain, palpitation, or leg swelling. GENITOURINARY: No dysuria, hematuria, urgency, or frequency. GASTROINTESTINAL: The patient reports epigastric and lower abdominal pains have subsided now. Nausea and vomiting also have subsided. She denies melena or hematochezia, and constipation has resolved now. MUSCULOSKELETAL: No joint pain, joint swelling, or backache. NEUROLOGY: No tingling, numbness, vision changes, or hearing loss. PSYCHIATRY: No history of depression, anxiety, suicidal plans or ideation. ENDOCRINOLOGY: History of diabetes mellitus, prior. This has resolved now with dietary changes. She denies any thyroid disease or hyperlipidemia to her knowledge. PHYSICAL EXAMINATION: GENERAL: The patient is a 74-year-old female who appears her stated age, seen resting in bed, in no acute respiratory distress, but with noted protuberance in the epigastric and left upper quadrant area of abdomen. VITAL SIGNS: Blood pressure 128/69, heart rate 87, respirations 16, temperature 98.1 degrees Fahrenheit. SKIN: Warm, dry with no active dermatosis. HEENT: The patient's head is normocephalic, atraumatic. Pupils reactive, sclerae are mildly icteric. Oral mucosa was moist, no obvious lesion, no blood noted. Nasal mucosa showed no epistaxis, septal deviation, or perforation. NECK: No mass or jugular venous distention, no lymphadenopathy or thyromegaly. LUNGS: Clear to auscultation bilaterally. HEART: S1, S2. No obvious murmurs, rubs, or gallops ausculated. ABDOMEN: Asymmetric with the area of protuberance in epigastric and extending to the left upper quadrant area with palpable firmness, a nonreducible incisional hernia with tenderness noted. The hernia size is at least 10-12 cm x 6 cm. EXTREMITIES: No cyanosis, clubbing, or edema. RECTAL: Deferred. LABORATORY DATA: WBC 7.4, hemoglobin 10, hematocrit 30.8, MCV of 101.3, platelet count of 429. Serum chemistry revealed sodium 136, potassium 3.3, chloride of 104, CO2 of 24, BUN of 9, creatinine 0.6, GFR of 93, random glucose 119. Total calcium 8.1, phosphorus of 3.3, magnesium of 1.8, total bilirubin of 2.8, direct bilirubin of 2.4, AST 37, ALT 32, alkaline phosphatase 745, total protein of 6.3, albumin of 1.8. Vitamin B12 level 2463. TSH 1.10. Urine showed yellow, clear specimen with pH of 6, specific gravity greater than 1.050, protein 20, glucose and ketones negative, trace of occult blood, nitrite and bilirubin negative, urobilinogen 2, leukocyte esterase negative, rbc's 2-5, wbc's 2-5, rare squamous epithelial cells, and rare urine bacteria noted. Ultrasound of the abdomen done showed cholelithiasis without cholecystitis and multiple cysts in the liver bilaterally. There was right nephrolithiasis noted. Gallbladder was also distended and the common bile duct measured 4 mm. IMPRESSION: 1. Epigastric pain and tenderness with nausea, vomiting, possibly related to her incisional hernia. Both peptic ulcer disease, Helicobacter pylori disease also of concern. Other hepatobiliary disorders cannot be excluded with elevated liver chemistries as above too. 2. Acute anemia with lower abdominal pain as above, suggests possible colon ulcers, colon polyps, or colon cancer. 3. Recent nausea, vomiting, may be related to hepatobiliary disorders, peptic ulcer disease, or related to lower abdominal pathology as noted above. 4. Elevated liver chemistries in this patient who had been on herbal medications indicate possible primarily cholestatic liver disease, which may be related to senna usage. The patient is taking a herbal medication called Smooth Move which has senna and she is chronically on this. Cholestasis with a hepatitis picture can occur with senna. Other etiology of elevated liver chemistries could include inherited or acquired cholestatic liver disease and malignancy cannot be excluded too, since she has weight loss. Again, though senna causing hepatitis and marked cholestasis most likely. 6. Polycystic liver disease, may be causing elevation of her liver chemistries also and even nausea and vomiting, though not quite large individually collectively, the liver cyst is causing enlargement of the liver. 7. May be causing elevation of her liver chemistries also and even nausea, vomiting. Though quite large individually, collectively, the liver is enlarged. 8. Incisional hernia, which may contribute to nausea, vomiting as noted above. 9. Cholelithiasis, which may cause nausea and vomiting too. 10. Possible fatty liver and elevated liver chemistries would mean she may have contributions of steatohepatitis and is at risk for hepatic cirrhosis. 11. Dysgeusia, possibly from herbal medications or related to her cholestasis. 12. Chronic constipation, possibly secondary to lack of water intake as she reports she takes about 32 ounces of water daily and this is an increased intake compared to her usual quantity of water intake. The patient also reports history of diverticulosis coli for many years. 13. Past history of endometriosis. 14. History of diabetes mellitus in the past as per patient. 15. History of hypertension, in the past as per patient. 16. Thrombocytosis. 17. The patient has elevated vitamin B12 level and reports history of kendra doses of vitamin B12 p.o. PLAN: 1. Recommend EGD for further evaluation and management. 2. Keep on a clear liquid diet for now. 3. Start MiraLax 17 g in 8 ounces of clear liquid p.o. daily. 4. Antireflux measures. 5. Follow up on results of CT scan of the abdomen done earlier. 6. Recommend a colonoscopy also. 7. Recommend surgical evaluation for a possible repair of her incisional hernia. 8. Discontinue use of the laxative "____" now. 9. Continue to monitor liver chemistries. A decrease in serum enzyme levels of her liver chemistry is expected when senna is stopped. 10. Hold vitamin B12 and recheck levels. Please note also that her last CT scan and ultrasound of the abdomen were individually reviewed and all other labs as discussed above. Thank you Dr. Noriega for allowing me to participate in the care of this patient. At least 90 minutes have been spent with this patient and her in assessing her condition and explaining the findings and disease processes involved and expected plan of care. All questions from the patient and her were answered. The patient has declined any other medical intervention. TID: [id number] RECEIPT: [id number] cc: CAMRYN NORIEGA MD(User),
[2024-08-25] MEDS: ondanSETRON 4MG INJ IVP PRN (23:27)
[2024-08-25] MEDS: acetaMINOPHEN 325 MG TAB PO PRN (23:27)
--- NOTE | 2024-08-25 23:32 | NUR ---
HIGH TEMP PATIENT HAS TEMP OF 102.8 PATIENT IS REFUSING ICE PACKS OR REMOVAL OF BLANKETS. PATIENT IS ALSO REFUSING TYLENOL STATING SHE HASN'T TAKEN TYLENOL IN YEARS. ASKING FOR A TEMP RECHECK IN 5-10 MINS
[2024-08-26] VITALS (9 sets, daily range): BP systolic 103–173; BP diastolic 51–97; PULSE 75–130; RESP 16–21; TEMP 98.3–102.8; O2SAT 97
--- NOTE | 2024-08-26 00:07 | NUR ---
TEMP RECHECK ORAL TEMP RECHECKED 100.4, PATIENT AGREED TO TAKE TYLENOL PO
[2024-08-26 06:12] LABS: HEMATOCRIT 30.8 % (36-48); MEAN CORPUSCULAR HEMOGLOBIN 32.2 pg (27.0-33.0); MEAN CORPUSCULAR HGB CONC 31.8 g/dL (32.0-36.0); MEAN CORPUSCULAR VOLUME 101.3 fL (79-99); RED BLOOD CELL COUNT(AUTO) 3.04 MIL/uL (4.00-5.50); RED CELL DISTRIBUTION WIDTH 14.3 % (11.0-15.5); WHITE BLOOD COUNT (AUTO) 14.4 K/uL (4.8-10.8)
[2024-08-26 06:48] LABS: ALBUMIN 1.7 g/dL (3.5-5.0); BILIRUBIN,DIRECT 4.1 mg/dL (0.0-0.3); BILIRUBIN,TOTAL 4.8 mg/dL (0.2-1.0); TOTAL PROTEIN, SERUM 6.2 g/dL (6.0-8.3)
[2024-08-26 07:36] LABS: MAGNESIUM 1.6 mg/dL (1.80-2.40)
--- NOTE | 2024-08-26 09:18 | HMCIMG ---
PORTABLE CHEST RADIOGRAPH INDICATION: fevers COMPARISON: None FINDINGS: heel nail rasper leads overlie the field of view. Heart size is normal. The pulmonary vascularity and annemarie appear normal. No abnormal pulmonary parenchymal opacity or consolidation identified. Linear scarring left lung base. No significant pleural effusion noted. No pneumothorax detected. IMPRESSION: No radiographic evidence for any acute cardiopulmonary process.
[2024-08-26] MEDS: CEFTRIAXONE 2GM VIAL IVPB SCH (09:48)
[2024-08-26] MEDS: metRONIDazole 500MG/100ML BAG 100 ML IVPB SCH (09:51)
[2024-08-26] MEDS ORDERED: GADOTERATE MEGLUMINE 10 MMOL/20 ML VIAL IV ONE (10:07)
[2024-08-26 10:20] LABS: SARS-CoV-2, RNA, NAAT NEGATIVE SARS CoV-2 (NEGATIVE)
[2024-08-26 10:24] LABS: INFLUENZA TYPE A Negative For Type A (NEGATIVE)
[2024-08-26 10:45] LABS: INFLUENZA TYPE B Positive For Type B (NEGATIVE)
--- NOTE | 2024-08-26 11:43 | PN ---
[facility] PROGRESS NOTE Date Patient Seen: Aug 26, 2024 Time of Visit: 11:43 Supervising Physician: Dr. Casey Noriega Primary Care Physician: Dr. Vu Mcallister Outpatient Specialists: Inpatient Consults: GI, Dr. Davenport (Surgery) PROBLEM LIST: Acute cholelithiasis with choledocholithiasis and likely obstructive biliary colic per CT abdomen Elevated alkaline phosphatase present on admission likely due to above Influenza B positive Elevated bilirubin Transaminitis, POA Anorexia with dysgeusia, POA Constant Intractable abdominal pain with associated nausea and vomiting worsening over three-month Proteinuria and urobilinuria Anemia of chronic disease Electrolyte derangement (hyponatremia, hypochloremia) Diabetes mellitus type 2 Chronic constipation History of total abdominal hysterectomy with bilateral salpingo-oophorectomy for complications related to endometriosis. Chronic problem list: History of liver cyst diagnosed in 1998, Hypertension, hyperlipidemia, vitamin-D deficiency, endometriosis, hernia, recent UTI in June 11 INTERVAL HISTORY: Patient assessed at bedside. AAOX3. Currently on room air.Alk phos increased to 1025 and bilirubin 4.8.CT abdomen/pelvis showed cholelithiasis with choledocholithiasis and likely obstructive biliary colic, acute diverticulitis, Fat-containing ventral hernia with findings worrisome for incarcerated, and strangulated omentum. Patient had fevers overnight, pancultures ordered. Positive for influenza B, started on Tamiflu. Patient refusing any procedures by GI right now, requesting a surgeon. Denies nausea or vomiting just mild abdominal discomfort. NPO and on IV fluids. 1:[address] Franco. 1:[address] Davenport. MRCP ordered. at bedside. REVIEW OF SYSTEMS: 12 point ROS reviewed with patient. Pertinent positives mentioned above. Otherwise negative. PHYSICAL EXAM: GENERAL: alert, weak, awake oriented x 3 HEENT: EOMI, Sclera non icteric, moist mucosa NECK: Supple, no JVD, trachea midline LUNGS: Clear breath sounds bilaterally. No wheezes HEART: Regular rate and rhythm. Normal S1 and S2, without murmurs ABD: Abdomen soft, nontender. Bowel sounds present EXT: No clubbing cyanosis or edema NEURO: Alert and oriented X3, follows commands Vital Signs (last 8hr) Date Time Temp Pulse Resp B/P (MAP) Pulse Ox O2 Delivery O2 Flow Rate FiO2 08/26/24 08:00 98.6 93 16 110/64 99 Room Air 21 08/26/24 04:42 98.4 91 18 103/51 96 Room Air LABS: Hematology Labs: Test 08/26/24 06:01 08/24/24 21:11 Range/Units White Blood Count 14.4 H 4.8-10.8 K/uL Red Blood Count 3.04 L 4.00-5.50 MIL/uL Hemoglobin 9.8 L 12.0-16.0 g/dL Hematocrit 30.8 L 36-48 % Mean Corpuscular Volume 101.3 H 79-99 fL Mean Corpuscular Hemoglobin 32.2 27.0-33.0 pg Mean Corpuscular Hemoglobin Concent 31.8 L 32.0-36.0 g/dL Red Cell Distribution Width 14.3 11.0-15.5 % Platelet Count 385 130-400 K/uL Mean Platelet Volume 8.2 7.5-10.5 fL Nucleated Red Blood Cells 0.0 0.0-0.19 % Erythrocyte Sedimentation Rate 142 H 0-30 MM/HR Immature Granulocyte % (Auto) 1.1 H 0-1 % Neutrophils (%) (Auto) 74.7 40.0-77.0 % Lymphocytes (%) (Auto) 15.6 L 21.0-51.0 % Monocytes (%) (Auto) 7.4 3.0-13.0 % Eosinophils (%) (Auto) 0.8 0.0-8.0 % Basophils (%) (Auto) 0.4 0.0-5.0 % Neutrophils # (Auto) 6.8 1.8-7.7 K/uL Lymphocytes # (Auto) 1.4 1.0-4.8 K/uL Monocytes # (Auto) 0.7 0.1-1.0 K/uL Eosinophils # (Auto) 0.07 0.00-0.70 K/uL Basophils # (Auto) 0.04 0.00-0.20 K/uL Absolute Immature Granulocyte (auto 0.10 0-1 K/uL Chemistry Labs: Test 08/26/24 11:31 08/26/24 06:01 08/25/24 04:16 08/24/24 21:11 Range/Units Whole Blood Glucose 121 H 70-110 MG/DL Magnesium Level 1.60 L 1.80-2.40 mg/dL Total Bilirubin 4.8 H 0.2-1.0 mg/dL Direct Bilirubin 4.1 H 0.0-0.3 mg/dL Aspartate Amino Transf (AST/SGOT) 73 H 10-37 U/L Alanine Aminotransferase (ALT/SGPT) 45 12-78 U/L Alkaline Phosphatase 1025 *H 50-136 U/L Total Protein 6.2 6.0-8.3 g/dL Albumin 1.7 L 3.5-5.0 g/dL Sodium Level 136 136-145 mmol/L Potassium Level 3.3 L 3.5-5.1 mmol/L Chloride Level 104 101-111 mmol/L Carbon Dioxide Level 24 21-32 mmol/L Blood Urea Nitrogen 9 7-18 mg/dL Creatinine 0.6 0.5-1.0 mg/dL Glomerular Filtration Rate Calc 93 >90 mL/min Random Glucose 119 H 70-105 mg/dL Total Calcium 8.1 L 8.5-10.1 mg/dL Phosphorus Level 3.3 2.5-4.9 mg/dL Vitamin B12 Level 2463 H 193-986 pg/mL Thyroid Stimulating Hormone (TSH) 1.10 0.36-3.74 uIU/mL Lactic Acid Level 1.8 0.8-2.5 mmol/L Amylase Level 19 L 25-115 U/L Lipase 16 16-77 U/L DIAGNOSTICS / RADIOLOGY RESULTS: PROCEDURE: CXR1VW - CHEST 1VW PORTABLE CHEST RADIOGRAPH INDICATION: fevers COMPARISON: None FINDINGS: bus monitor leads overlie the field of view. Heart size is normal. The pulmonary vascularity and annemarie appear normal. No abnormal pulmonary parenchymal opacity or consolidation identified. Linear scarring left lung base. No significant pleural effusion noted. No pneumothorax detected. IMPRESSION: No radiographic evidence for any acute cardiopulmonary process. PLAN 1:[address] Davenport done AM labs NPO and IV fluids MRCP ordered Started on tamiflu 75mg PO BID for influenza B Other labs: Acute hepatitis panel, vitamin-D level, vitamin-B levels P.r.n. medications for: Pain management, nausea, vomiting, constipation, hypertension Monitor liver and kidney function. NEURO: Minimize central acting medications as possible. Maintain fall precautions, adequate lighting during the day PULMONARY: Supplemental 02 as needed. Maintain aspiration precautions at all times CARDIOVASCULAR: Follow hemodynamics. Vital signs per facility protocol GI & NUTRITION: Continue with nutritional support. Continue stool softeners and laxatives as needed. KIDNEYS & ELECTROLYTES: Strict monitoring of intake, output and overall fluid balance. Avoid nephrotoxic medications to the extent possible. Medications to be dosed according to renal function. Monitor electrolytes and replace as needed ENDOCRINE: Maintain blood glucose between 100-180 at all times. Hypoglycemia protocol in place INFECTIOUS DISEASE: Trend temperature, WBC and procalcitonin level Follow cultures, deescalate antibiotics as soon as possible. Panculture if new onset fever ONCOLOGY/HEMATOLOGY/COAGULATION: Monitor for s/s of bleeding Monitor hemoglobin, coagulation studies as needed SKIN: Pressure ulcer prevention per facility protocol Specialty mattress ORTHO/REHAB: Continue PT/OT Prophylaxis: Continue GI and DVT prophylaxis Code Status: Full Resuscitation Disposition: TBD Other: Total patient care time exceeds 35 minutes excluding all procedures. ISRAEL FLANAGAN PHOTO[employer] COLORIST Aug 26, 2024 11:43
[2024-08-26 12:45] LABS: HEPATITIS A IGM ANTIBODY Non-Reactive (Nonreactive); HEPATITIS B CORE IGM ANTIBODY Non-Reactive (Negative); HEPATITIS B SURFACE ANTIGEN Non-Reactive (Nonreactive); HEPATITIS C ANTIBODY Non-Reactive (Nonreactive)
[2024-08-26] MEDS: OSELTAMIVIR PHOSPHATE 75 MG CAP PO SCH (13:34)
--- NOTE | 2024-08-26 17:54 | HMCIMG ---
STUDY: MRI ABDOMEN WITH MRCP INDICATION: elevated bili, obstructive biliary colic COMPARISON: CT scan 08/24/2024 TECHNIQUE: Multiplanar multisequence MRI images were obtained of the abdomen without gadolinium. Coronal and radial MIP MRCP sequences were performed with multiplanar reformats. FINDINGS: Again demonstrated is intrahepatic biliary dilatation. There are multiple filling defects within the common bile duct most consistent with choledocholithiasis. Again demonstrated is a hydropic gallbladder with multiple gallbladder calculi but no acute inflammatory changes. Again demonstrated are multiple hepatic cysts. The etiology for the intrahepatic dilatation is not definitely identified. There is no obvious mass at the marquis hepatis. IMPRESSION: 1.Cholelithiasis and choledocholithiasis with intrahepatic dilatation.
[2024-08-27] VITALS (9 sets, daily range): BP systolic 100–124; BP diastolic 47–71; PULSE 76–91; RESP 16–19; TEMP 97.5–98.7; O2SAT 99
[2024-08-27 05:18] LABS: HEMATOCRIT 31.4 % (36-48); MEAN CORPUSCULAR HEMOGLOBIN 32.8 pg (27.0-33.0); MEAN CORPUSCULAR HGB CONC 32.5 g/dL (32.0-36.0); RED BLOOD CELL COUNT(AUTO) 3.11 MIL/uL (4.00-5.50); RED CELL DISTRIBUTION WIDTH 14.2 % (11.0-15.5); WHITE BLOOD COUNT (AUTO) 8.5 K/uL (4.8-10.8)
[2024-08-27 05:36] LABS: ALBUMIN 1.6 g/dL (3.5-5.0); BILIRUBIN,TOTAL 3.6 mg/dL (0.2-1.0); CREATININE 0.8 mg/dL (0.5-1.0); MAGNESIUM 1.6 mg/dL (1.80-2.40); POTASSIUM 3.6 mmol/L (3.5-5.1); TOTAL PROTEIN, SERUM 6.1 g/dL (6.0-8.3)
--- NOTE | 2024-08-27 09:47 | PN ---
[facility] PROGRESS NOTE Date Patient Seen: Aug 27, 2024 Time of Visit: 09:47 Supervising Physician: Dr. Darwin Solorio Primary Care Physician: Dr. Vu Mcallister Outpatient Specialists: Inpatient Consults: GI, Dr. Davenport (Surgery) PROBLEM LIST: Acute cholecystitis Acute cholelithiasis with choledocholithiasis with intrahepatic dilatation Elevated alkaline phosphatase/Elevated bilirubin present on admission likely due to above Influenza B positive Transaminitis, POA Anorexia with dysgeusia, POA Constant Intractable abdominal pain with associated nausea and vomiting worsening over three-month Proteinuria and urobilinuria Anemia of chronic disease Electrolyte derangement (hyponatremia, hypochloremia) Diabetes mellitus type 2 Chronic constipation History of total abdominal hysterectomy with bilateral salpingo-oophorectomy for complications related to endometriosis. Chronic problem list: History of liver cyst diagnosed in 1998, Hypertension, hyperlipidemia, vitamin-D deficiency, endometriosis, hernia, recent UTI in June 11 INTERVAL HISTORY: Patient assessed at bedside. AAOX3. Currently on room air. Continues on tamiflu for influenza B. Alk phos decreased to 805 and bilirubin 3.6. Patient has agreed to proceed with ERCP and/or EUS as recommended by GI Dr. Franco. Denies nausea or vomiting just mild abdominal discomfort. NPO and on IV fluids. No more fevers, patient states she feels good. No overnight issues per nursing. at bedside. HIDA scan positive for acute cholecystitis 1:[address] Davenport, kacey agosto with laparoscopic ventral hernia repair once ERCP/EUS is done. REVIEW OF SYSTEMS: 12 point ROS reviewed with patient. Pertinent positives mentioned above. Otherwise negative. PHYSICAL EXAM: GENERAL: alert, weak, awake oriented x 3 HEENT: EOMI, Sclera non icteric, moist mucosa NECK: Supple, no JVD, trachea midline LUNGS: Clear breath sounds bilaterally. No wheezes HEART: Regular rate and rhythm. Normal S1 and S2, without murmurs ABD: Abdomen soft, nontender. Bowel sounds present EXT: No clubbing cyanosis or edema NEURO: Alert and oriented X3, follows commands Vital Signs (last 8hr) Date Time Temp Pulse Resp B/P (MAP) Pulse Ox O2 Delivery O2 Flow Rate FiO2 08/27/24 08:20 97.9 84 18 117/54 99 08/27/24 04:57 98.6 80 17 100/52 99 Room Air LABS: Hematology Labs: Test 08/27/24 05:02 08/26/24 06:01 Range/Units White Blood Count 8.5 # 4.8-10.8 K/uL Red Blood Count 3.11 L 4.00-5.50 MIL/uL Hemoglobin 10.2 L 12.0-16.0 g/dL Hematocrit 31.4 L 36-48 % Mean Corpuscular Volume 101.0 H 79-99 fL Mean Corpuscular Hemoglobin 32.8 27.0-33.0 pg Mean Corpuscular Hemoglobin Concent 32.5 32.0-36.0 g/dL Red Cell Distribution Width 14.2 11.0-15.5 % Platelet Count 393 130-400 K/uL Mean Platelet Volume 8.6 7.5-10.5 fL Nucleated Red Blood Cells 0.0 0.0-0.19 % Erythrocyte Sedimentation Rate 142 H 0-30 MM/HR Chemistry Labs: Test 08/27/24 05:48 08/27/24 05:02 08/25/24 11:03 Range/Units Whole Blood Glucose 88 70-110 MG/DL Sodium Level 134 L 136-145 mmol/L Potassium Level 3.6 3.5-5.1 mmol/L Chloride Level 102 101-111 mmol/L Carbon Dioxide Level 21 21-32 mmol/L Blood Urea Nitrogen 9 7-18 mg/dL Creatinine 0.8 0.5-1.0 mg/dL Glomerular Filtration Rate Calc 76 >90 mL/min Random Glucose 86 70-105 mg/dL Total Calcium 8.5 8.5-10.1 mg/dL Magnesium Level 1.60 L 1.80-2.40 mg/dL Total Bilirubin 3.6 #H 0.2-1.0 mg/dL Direct Bilirubin 3.0 #H 0.0-0.3 mg/dL Aspartate Amino Transf (AST/SGOT) 41 H 10-37 U/L Alanine Aminotransferase (ALT/SGPT) 33 # 12-78 U/L Alkaline Phosphatase 805 *H 50-136 U/L Total Protein 6.1 6.0-8.3 g/dL Albumin 1.6 L 3.5-5.0 g/dL Vitamin D 25-Hydroxy 65.6 30.0-100.0 ng/mL DIAGNOSTICS / RADIOLOGY RESULTS: PROCEDURE: HIDAWO - NM HIDA WO EF/CCK NM HIDA WO EF/CCK REASON: elevated liver enzymes. COMPARISON: None TECHNIQUE: Hepatobiliary imaging study was performed with 7 mCi of technetium Choletec through intravenous route. 4 hour delayed was performed. FINDINGS: Normal visualization of bile activity noted within 1 hour. There is no visualization of gallbladder activity at 4 hours suspicious for acute cholecystitis in a proper clinical setting. IMPRESSION: Findings suspicious for acute cholecystitis in a proper clinical setting. PLAN Follow surgery and GI recommendations AM labs NPO and IV fluids Continue on tamiflu 75mg PO BID for influenza B P.r.n. medications for: Pain management, nausea, vomiting, constipation, hypertension Monitor liver and kidney function. NEURO: Minimize central acting medications as possible. Maintain fall precautions, adequate lighting during the day PULMONARY: Supplemental 02 as needed. Maintain aspiration precautions at all times CARDIOVASCULAR: Follow hemodynamics. Vital signs per facility protocol GI & NUTRITION: Continue with nutritional support. Continue stool softeners and laxatives as needed. KIDNEYS & ELECTROLYTES: Strict monitoring of intake, output and overall fluid balance. Avoid nephrotoxic medications to the extent possible. Medications to be dosed according to renal function. Monitor electrolytes and replace as needed ENDOCRINE: Maintain blood glucose between 100-180 at all times. Hypoglycemia protocol in place INFECTIOUS DISEASE: Trend temperature, WBC and procalcitonin level Follow cultures, deescalate antibiotics as soon as possible. Panculture if new onset fever ONCOLOGY/HEMATOLOGY/COAGULATION: Monitor for s/s of bleeding Monitor hemoglobin, coagulation studies as needed SKIN: Pressure ulcer prevention per facility protocol Specialty mattress ORTHO/REHAB: Continue PT/OT Prophylaxis: Continue GI and DVT prophylaxis Code Status: Full Resuscitation Disposition: ISRAEL MONSIVAIS [facility] Aug 27, 2024 09:47
--- NOTE | 2024-08-27 11:30 | NUR ---
DID NOT CHECK BLOOD GLUCOSE. PATIENT IS IN PROCEDURE.
--- NOTE | 2024-08-27 12:45 | CONS ---
CONSULTATION NOTE Date of Service: Aug 27, 2024 Reason for Consultation: [ Gallstones and bile duct dilatation] Requesting Physician: [ BIS service ] HISTORY OF PRESENT ILLNESS: [ Patient has been having some nausea and some emesis since April. Associated with the nausea and emesis has been some weight loss. Patient denies any melena hematochezia, hematuria. Patient indicates that the symptoms got progressively worse since April and because of the continued weight loss and nausea she decided to come in the emergency room. On admission to the emergency room patient was noted to have an elevated liver function tests. A T bili was about 3.6 and alk-phos was about 800s. Patient had a CT scan, MRCP, abdominal ultrasound done. I personally reviewed the CT scan, ultrasound, MRCP. Patient has a distended gallbladder with lot of stones in it. Patient also has severe dilatation of her intrahepatic biliary tree. Continuity tell whether these are cystic dilatations or not. Patient also has a very large ventral hernia that contains omentum. Patient indicates that she had a exploratory laparotomy many years ago for endometriosis. ] REVIEW OF SYSTEMS CONSTITUTIONAL: Denies fever, chills, or fatigue. HEAD/FACE: No signs of trauma. EENT: Denies eye pain, blurred vision, double vision, or light sensitivity. RESPIRATORY: Denies shortness of breath, cough, wheezing CARDIOVASCULAR: Denies chest pain, palpitation, syncope GASTROINTESTINAL/ABDOMINAL: Nausea and emesis GENITOURINARY: Denies dysuria or hematuria. MUSCULOSKELETAL: Denies joint pain, tenderness, or trauma. INTEGUMENTARY: Denies rash or itchiness NEUROLOGICAL/PSYCH: Denies anxiety, depression, heat or cold intolerance. PAST MEDICAL HISTORY: [ Diabetes ] PAST SURGICAL HISTORY: [Exploratory laparotomy ] PAST SOCIAL HISTORY: [ Patient denies any illicit drug use ] FAMILY HISTORY: [ Noncontributory ] Coded Allergies: No Known Allergies (Unverified Allergy, Unknown, 08/24/24) PHYSICAL EXAM PHYSICAL EXAM EYES: Patient appears slightly jaundiced HENT: Oral nasal mucosa pink and moist NECK: Supple, . LUNGS: Unlabored CARDIOVASCULAR: Regular rate and rhythm ABDOMEN: Nonreducible ventral incisional hernia. Abdomen is soft, nontender CENTRAL NERVOUS SYSTEM: Awake, alert, oriented x3 SKIN: No rashes, no swelling. LYMPHATICS: No peripheral lymphadenopathy MUSCULOSKELETAL: Motor and sensory function grossly intact EXTREMITIES: No cyanosis or clubbing BACK: No deformity, no pressure ulcer. GENITOURINARY: No dysuria or hematuria Vital Sign (Last 24 Hours) 08/26/24 08/27/24 08/27/24 20:42 04:57 08:20 Temp 97.9 Pulse 84 Resp 18 B/P (MAP) 117/54 Pulse Ox 99 O2 Delivery Room Air O2 Flow Rate 0 FiO2 21 Intake & Output (last 24hrs) 08/26/24 08/26/24 08/27/24 15:00 23:00 07:00 Intake Total 400 ml Balance 400 ml LABS: Laboratory: Test 08/27/24 05:48 08/27/24 05:02 08/26/24 09:35 08/26/24 06:01 Range/Units Whole Blood Glucose 88 70-110 MG/DL White Blood Count 8.5 # 4.8-10.8 K/uL Red Blood Count 3.11 L 4.00-5.50 MIL/uL Hemoglobin 10.2 L 12.0-16.0 g/dL Hematocrit 31.4 L 36-48 % Mean Corpuscular Volume 101.0 H 79-99 fL Mean Corpuscular Hemoglobin 32.8 27.0-33.0 pg Mean Corpuscular Hemoglobin Concent 32.5 32.0-36.0 g/dL Red Cell Distribution Width 14.2 11.0-15.5 % Platelet Count 393 130-400 K/uL Mean Platelet Volume 8.6 7.5-10.5 fL Nucleated Red Blood Cells 0.0 0.0-0.19 % Sodium Level 134 L 136-145 mmol/L Potassium Level 3.6 3.5-5.1 mmol/L Chloride Level 102 101-111 mmol/L Carbon Dioxide Level 21 21-32 mmol/L Blood Urea Nitrogen 9 7-18 mg/dL Creatinine 0.8 0.5-1.0 mg/dL Glomerular Filtration Rate Calc 76 >90 mL/min Random Glucose 86 70-105 mg/dL Total Calcium 8.5 8.5-10.1 mg/dL Magnesium Level 1.60 L 1.80-2.40 mg/dL Total Bilirubin 3.6 #H 0.2-1.0 mg/dL Direct Bilirubin 3.0 #H 0.0-0.3 mg/dL Aspartate Amino Transf (AST/SGOT) 41 H 10-37 U/L Alanine Aminotransferase (ALT/SGPT) 33 # 12-78 U/L Alkaline Phosphatase 805 *H 50-136 U/L Total Protein 6.1 6.0-8.3 g/dL Albumin 1.6 L 3.5-5.0 g/dL Influenza Type A Antigen Negative For Type A NEGATIVE Influenza Type B Antigen Positive For Type B *A NEGATIVE SARS-CoV-2, RNA, NAAT NEGATIVE SARS CoV-2 NEGATIVE Group A Streptococcus Rapid negative NEGATIVE Erythrocyte Sedimentation Rate 142 H 0-30 MM/HR DIAGNOSTICS / RADIOLOGY: [ ] ASSESSMENT: [ Gallstones and the patient that also has biliary dilatation ] PLAN: [ Concerned about patient's biliary dilatation. I have asked the medical office assistant to do an EUS and an ERCP 1st. Once those studies are done and reviewed then we will plan on a laparoscopic cholecystectomy with intraoperative cholangiogram and possibly also a laparoscopic ventral hernia repair. Risks associated with the procedure not entered to infection, bleeding, injury to surrounding structures has been discussed with the patient and and they indicate they understand and would like to proceed. ] MARGARET HAMPTON MD Aug 27, 2024 12:45
--- NOTE | 2024-08-27 13:19 | HMCIMG ---
NM HIDA WO EF/CCK REASON: elevated liver enzymes. COMPARISON: None TECHNIQUE: Hepatobiliary imaging study was performed with 7 mCi of technetium Choletec through intravenous route. 4 hour delayed was performed. FINDINGS: Normal visualization of bile activity noted within 1 hour. There is no visualization of gallbladder activity at 4 hours suspicious for acute cholecystitis in a proper clinical setting. IMPRESSION: Findings suspicious for acute cholecystitis in a proper clinical setting.
--- NOTE | 2024-08-27 16:30 | NUR ---
BLOOD GLUCOSE AT 82. NO INSULIN COVERAGE NEEDED AT THIS TIME.
[2024-08-28] VITALS (8 sets, daily range): BP systolic 105–129; BP diastolic 43–63; PULSE 69–90; RESP 16–19; TEMP 97.4–98.4; O2SAT 99
[2024-08-28 05:12] LABS: HEMATOCRIT 32.8 % (36-48); MEAN CORPUSCULAR HEMOGLOBIN 32.3 pg (27.0-33.0); MEAN CORPUSCULAR HGB CONC 32.3 g/dL (32.0-36.0); RED BLOOD CELL COUNT(AUTO) 3.28 MIL/uL (4.00-5.50); RED CELL DISTRIBUTION WIDTH 14.1 % (11.0-15.5); WHITE BLOOD COUNT (AUTO) 5.6 K/uL (4.8-10.8)
[2024-08-28 05:44] LABS: ALBUMIN 1.6 g/dL (3.5-5.0); BILIRUBIN,DIRECT 2.4 mg/dL (0.0-0.3); BILIRUBIN,TOTAL 2.7 mg/dL (0.2-1.0); CREATININE 0.7 mg/dL (0.5-1.0); MAGNESIUM 1.6 mg/dL (1.80-2.40); POTASSIUM 3.3 mmol/L (3.5-5.1)
[2024-08-28] MEDS: PoTASSium chloRIDE 20MEQ/100ML 100 ML IV PRN (06:20)
[2024-08-28 07:22] LABS: RHEUMATOID ARTHRITIS FACTOR 13.1 IU/mL (<14.0)
--- NOTE | 2024-08-28 11:30 | NUR ---
BLOOD GLUCOSE AT 101. NO INSULIN COVERAGE NEEDED AT THIS TIME.
--- NOTE | 2024-08-28 16:30 | NUR ---
BLOOD GLUCOSE AT 114. NO INSULIN COVERAGE NEEDED AT THIS TIME.
--- NOTE | 2024-08-28 20:58 | PN ---
[facility] PROGRESS NOTE Date Patient Seen: Aug 28, 2024 Time of Visit: 20:52 Supervising Physician: PROSPER CID Primary Care Physician: Dr. Vu Mcallister Outpatient Specialists: Inpatient Consults: GI- Dr. Franco, Dr. Davenport (Surgery) PROBLEM LIST: Acute choledocholithiasis with intrahepatic dilatation Influenza B positive Anorexia with dysgeusia, POA Constant Intractable abdominal pain with associated nausea and vomiting worsening over three-month Anemia of chronic disease Electrolyte derangement (hyponatremia, hypochloremia) Diabetes mellitus type 2 Chronic constipation History of total abdominal hysterectomy with bilateral salpingo-oophorectomy for complications related to endometriosis. Chronic problem list: History of liver cyst diagnosed in 1998, Hypertension, hyperlipidemia, vitamin-D deficiency, endometriosis, hernia, recent UTI in June 11 INTERVAL HISTORY: Patient seen and examined by me at bedside , she had emesis episode after attempt at eating, Advised patient at this time she will be on clear liquid diet if tolerated Patient is pending ERCP on Tuesday by Dr. Franco. General Surgery is following along closely. At this time she is on room air , on Tamiflu for Influenzal infection. Does c/o of occasional cough. No SOB. Afebrile overnight REVIEW OF SYSTEMS: 12 point ROS reviewed with patient. Pertinent positives mentioned above. Otherwise negative. PHYSICAL EXAM: GENERAL: alert, weak, awake oriented x 3 HEENT: EOMI, Sclera non icteric, moist mucosa NECK: Supple, no JVD, trachea midline LUNGS: Clear breath sounds bilaterally. No wheezes HEART: Regular rate and rhythm. Normal S1 and S2, without murmurs ABD: Abdomen soft, +epigastric and RUQ tenderness, Bowel sounds present EXT: No clubbing cyanosis or edema NEURO: Alert and oriented X3, follows commands Vital Signs (last 8hr) Date Time Temp Pulse Resp B/P (MAP) Pulse Ox O2 Delivery O2 Flow Rate FiO2 08/28/24 16:46 97.7 85 16 107/43 100 LABS: Hematology Labs: Test 08/28/24 04:57 Range/Units White Blood Count 5.6 # 4.8-10.8 K/uL Red Blood Count 3.28 L 4.00-5.50 MIL/uL Hemoglobin 10.6 L 12.0-16.0 g/dL Hematocrit 32.8 L 36-48 % Mean Corpuscular Volume 100.0 H 79-99 fL Mean Corpuscular Hemoglobin 32.3 27.0-33.0 pg Mean Corpuscular Hemoglobin Concent 32.3 32.0-36.0 g/dL Red Cell Distribution Width 14.1 11.0-15.5 % Platelet Count 378 130-400 K/uL Mean Platelet Volume 8.3 7.5-10.5 fL Nucleated Red Blood Cells 0.0 0.0-0.19 % Chemistry Labs: Test 08/28/24 19:38 08/28/24 04:57 Range/Units Whole Blood Glucose 117 H 70-110 MG/DL Bedside Glucose Comment Protocol Initiated Sodium Level 136 136-145 mmol/L Potassium Level 3.3 L 3.5-5.1 mmol/L Chloride Level 103 101-111 mmol/L Carbon Dioxide Level 20 L 21-32 mmol/L Blood Urea Nitrogen 7 7-18 mg/dL Creatinine 0.7 0.5-1.0 mg/dL Glomerular Filtration Rate Calc 90 >90 mL/min Random Glucose 94 70-105 mg/dL Total Calcium 8.3 L 8.5-10.1 mg/dL Magnesium Level 1.60 L 1.80-2.40 mg/dL Total Bilirubin 2.7 #H 0.2-1.0 mg/dL Direct Bilirubin 2.4 H 0.0-0.3 mg/dL Aspartate Amino Transf (AST/SGOT) 34 10-37 U/L Alanine Aminotransferase (ALT/SGPT) 30 12-78 U/L Alkaline Phosphatase 743 *H 50-136 U/L Total Protein 6.0 6.0-8.3 g/dL Albumin 1.6 L 3.5-5.0 g/dL DIAGNOSTICS / RADIOLOGY RESULTS: [ ] PLAN Clear liquid diet as tolerated Continue on tamiflu 75mg PO BID for influenza B Rocephin and Flagyl General Surgery following closely Awaiting ERCP for Tuesday P.r.n. medications for: Pain management, nausea, vomiting, constipation, hypertension Monitor liver and kidney function. NEURO: Minimize central acting medications as possible. Maintain fall precautions, adequate lighting during the day PULMONARY: Supplemental 02 as needed. Maintain aspiration precautions at all times IS CARDIOVASCULAR: Follow hemodynamics. Vital signs per facility protocol GI & NUTRITION: Continue with nutritional support. Continue stool softeners and laxatives as needed. KIDNEYS & ELECTROLYTES: Strict monitoring of intake, output and overall fluid balance. Avoid nephrotoxic medications to the extent possible. Medications to be dosed according to renal function. Monitor electrolytes and replace as needed ENDOCRINE: Maintain blood glucose between 100-180 at all times. Hypoglycemia protocol in place INFECTIOUS DISEASE: Trend temperature, WBC and procalcitonin level Follow cultures, deescalate antibiotics as soon as possible. Panculture if new onset fever ONCOLOGY/HEMATOLOGY/COAGULATION: Monitor for s/s of bleeding Monitor hemoglobin, coagulation studies as needed SKIN: Pressure ulcer prevention per facility protocol Specialty mattress ORTHO/REHAB: Continue PT/OT Prophylaxis: Continue GI and DVT prophylaxis Code Status: Full Resuscitation Disposition: SNF referral PT/OT evaluation LYNDSEY NGUYEN Aug 28, 2024 20:58
[2024-08-29] VITALS (7 sets, daily range): BP systolic 113–127; BP diastolic 57–73; PULSE 77–88; RESP 16–20; TEMP 97.6–98.4; O2SAT 97–99
[2024-08-29 03:53] LABS: BASOPHILS # (AUTO) 0.04 K/uL (0.00-0.20); BASOPHILS % (AUTO) 0.7 % (0.0-5.0); EOSINOPHILS # (AUTO) 0.15 K/uL (0.00-0.70); EOSINOPHILS % (AUTO) 2.7 % (0.0-8.0); HEMATOCRIT 30.2 % (36-48); IMMATURE GRANULOCYTE ABSOLUTE 0.08 K/uL (0-1); LYMPHOCYTES # (AUTO) 1.6 K/uL (1.0-4.8); LYMPHOCYTES % (AUTO) 28.8 % (21.0-51.0); MEAN CORPUSCULAR HEMOGLOBIN 32.6 pg (27.0-33.0); MEAN CORPUSCULAR HGB CONC 32.8 g/dL (32.0-36.0); MEAN CORPUSCULAR VOLUME 99.3 fL (79-99); MONOCYTES # (AUTO) 0.5 K/uL (0.1-1.0); MONOCYTES % (AUTO) 9.6 % (3.0-13.0); NEUTROPHILS # (AUTO) 3.1 K/uL (1.8-7.7); NEUTROPHILS % (AUTO) 56.8 % (40.0-77.0); PLATELET COUNT (AUTO) 368 K/uL (130-400); RED BLOOD CELL COUNT(AUTO) 3.04 MIL/uL (4.00-5.50); RED CELL DISTRIBUTION WIDTH 14.3 % (11.0-15.5); WHITE BLOOD COUNT (AUTO) 5.5 K/uL (4.8-10.8)
[2024-08-29 04:30] LABS: ALBUMIN 1.5 g/dL (3.5-5.0); BILIRUBIN,TOTAL 2.2 mg/dL (0.2-1.0); CREATININE 0.6 mg/dL (0.5-1.0); MAGNESIUM 1.7 mg/dL (1.80-2.40); TOTAL PROTEIN, SERUM 5.1 g/dL (6.0-8.3)
[2024-08-29] MEDS: MAGNESIUM 2GM PREMIX 50ML 50 ML IV PRN (05:22)
[2024-08-29] MEDS: ENOXAPARIN SODIUM 40 MG/0.4 ML SYRINGE SQ SCH (09:26)
[2024-08-29] MEDS: CEFTRIAXONE 2GM VIAL IVPB SCH (10:19)
--- NOTE | 2024-08-29 13:05 | NUR ---
Discharge Planning: Referral sent to [facility]. Pending insurance authorization.
[2024-08-29 14:14] LABS: ATYPICAL P-ANCA AB <1:20 titer (Neg:<1:20); CYTOPLASMIC (C-ANCA) AB, IGG <1:20 titer (Neg:<1:20)
--- NOTE | 2024-08-29 14:31 | PN ---
[facility] PROGRESS NOTE Date Patient Seen: Aug 29, 2024 Time of Visit: 14:25 Supervising Physician: MD PANCHITO Primary Care Physician: Dr. Vu Mcallister Outpatient Specialists: Inpatient Consults: GI- Dr. Franco, Dr. Davenport (Surgery) PROBLEM LIST: Acute choledocholithiasis with intrahepatic dilatation Large Ventral Hernia with concern for strangulated omentum Influenza B positive Anorexia with dysgeusia, POA Constant Intractable abdominal pain with associated nausea and vomiting worsening over three-month Anemia of chronic disease Electrolyte derangement (hyponatremia, hypochloremia) Diabetes mellitus type 2 Chronic constipation History of total abdominal hysterectomy with bilateral salpingo-oophorectomy for complications related to endometriosis. Chronic problem list: History of liver cyst diagnosed in 1998, Hypertension, hyperlipidemia, vitamin-D deficiency, endometriosis, hernia, recent UTI in June 11 INTERVAL HISTORY: Patient seen and examined by me at bedside with in room ,she has been on clear liquid diet as tolerated with intermittent nausea , no pain reported ovrnight . Set to undergo EGD tomorrow Patient is pending ERCP on Tuesday by Dr. Franco. General Surgery is following along closely. At this time she is on room air , on Tamiflu for Influenzal infection. Afebrile overnight. Of note the patient was have a large fat ventral containing ventral hernia with fluid and stranding most worrisome for incarceration and strangulated omentum. At bedside the hernia is not totally reducible. General surgery is on the case and following closely REVIEW OF SYSTEMS: 12 point ROS reviewed with patient. Pertinent positives mentioned above. Otherwise negative. PHYSICAL EXAM: GENERAL: alert, weak, awake oriented x 3 HEENT: EOMI, Sclera non icteric, moist mucosa NECK: Supple, no JVD, trachea midline LUNGS: Clear breath sounds bilaterally. No wheezes HEART: Regular rate and rhythm. Normal S1 and S2, without murmurs ABD: Abdomen soft, +epigastric and RUQ tenderness, Bowel sounds present EXT: No clubbing cyanosis or edema NEURO: Alert and oriented X3, follows commands Vital Signs (last 8hr) Date Time Temp Pulse Resp B/P (MAP) Pulse Ox O2 Delivery O2 Flow Rate FiO2 08/29/24 11:57 97.7 88 18 127/73 98 Room Air 08/29/24 08:40 97.5 77 18 113/63 99 Room Air LABS: Hematology Labs: Test 08/29/24 03:29 Range/Units White Blood Count 5.5 4.8-10.8 K/uL Red Blood Count 3.04 L 4.00-5.50 MIL/uL Hemoglobin 9.9 L 12.0-16.0 g/dL Hematocrit 30.2 L 36-48 % Mean Corpuscular Volume 99.3 H 79-99 fL Mean Corpuscular Hemoglobin 32.6 27.0-33.0 pg Mean Corpuscular Hemoglobin Concent 32.8 32.0-36.0 g/dL Red Cell Distribution Width 14.3 11.0-15.5 % Platelet Count 368 130-400 K/uL Mean Platelet Volume 8.4 7.5-10.5 fL Immature Granulocyte % (Auto) 1.4 H 0-1 % Neutrophils (%) (Auto) 56.8 40.0-77.0 % Lymphocytes (%) (Auto) 28.8 21.0-51.0 % Monocytes (%) (Auto) 9.6 3.0-13.0 % Eosinophils (%) (Auto) 2.7 0.0-8.0 % Basophils (%) (Auto) 0.7 0.0-5.0 % Neutrophils # (Auto) 3.1 1.8-7.7 K/uL Lymphocytes # (Auto) 1.6 1.0-4.8 K/uL Monocytes # (Auto) 0.5 0.1-1.0 K/uL Eosinophils # (Auto) 0.15 0.00-0.70 K/uL Basophils # (Auto) 0.04 0.00-0.20 K/uL Absolute Immature Granulocyte (auto 0.08 0-1 K/uL Nucleated Red Blood Cells 0.0 0.0-0.19 % Chemistry Labs: Test 08/29/24 11:00 08/29/24 05:32 08/29/24 03:29 08/28/24 04:57 Range/Units Whole Blood Glucose 108 70-110 MG/DL Bedside Glucose Comment Protocol Initiated Sodium Level 137 136-145 mmol/L Potassium Level 4.0 3.5-5.1 mmol/L Chloride Level 106 101-111 mmol/L Carbon Dioxide Level 24 21-32 mmol/L Blood Urea Nitrogen 5 L 7-18 mg/dL Creatinine 0.6 0.5-1.0 mg/dL Glomerular Filtration Rate Calc 93 >90 mL/min Random Glucose 116 H 70-105 mg/dL Total Calcium 8.1 L 8.5-10.1 mg/dL Magnesium Level 1.70 L 1.80-2.40 mg/dL Total Bilirubin 2.2 H 0.2-1.0 mg/dL Aspartate Amino Transf (AST/SGOT) 34 10-37 U/L Alanine Aminotransferase (ALT/SGPT) 22 # 12-78 U/L Alkaline Phosphatase 728 *H 50-136 U/L Total Protein 5.1 L 6.0-8.3 g/dL Albumin 1.5 L 3.5-5.0 g/dL Lipase 9 L 16-77 U/L Direct Bilirubin 2.4 H 0.0-0.3 mg/dL DIAGNOSTICS / RADIOLOGY RESULTS: [ ] PLAN Clear liquid diet as tolerated Continue on tamiflu 75mg PO BID for influenza B Rocephin and Flagyl General Surgery following closely and will undergo Verito and hernia repair Awaiting ERCP for Tuesday P.r.n. medications for: Pain management, nausea, vomiting, constipation, hypertension Monitor liver and kidney function. NEURO: Minimize central acting medications as possible. Maintain fall precautions, adequate lighting during the day PULMONARY: Supplemental 02 as needed. Maintain aspiration precautions at all times IS CARDIOVASCULAR: Follow hemodynamics. Vital signs per facility protocol GI & NUTRITION: Continue with nutritional support. Continue stool softeners and laxatives as needed. KIDNEYS & ELECTROLYTES: Strict monitoring of intake, output and overall fluid balance. Avoid nephrotoxic medications to the extent possible. Medications to be dosed according to renal function. Monitor electrolytes and replace as needed ENDOCRINE: Maintain blood glucose between 100-180 at all times. Hypoglycemia protocol in place INFECTIOUS DISEASE: Trend temperature, WBC and procalcitonin level Follow cultures, deescalate antibiotics as soon as possible. Panculture if new onset fever ONCOLOGY/HEMATOLOGY/COAGULATION: Monitor for s/s of bleeding Monitor hemoglobin, coagulation studies as needed SKIN: Pressure ulcer prevention per facility protocol Specialty mattress ORTHO/REHAB: Continue PT/OT Prophylaxis: Continue GI and DVT prophylaxis Code Status: Full Resuscitation Disposition: SNF referral PT/OT evaluation LYNDSEY NGUYEN Aug 29, 2024 14:31
--- NOTE | 2024-08-29 16:33 | HMCIMG ---
ABD 1VW HISTORY: Abdominal pain COMPARISON: None FINDINGS: A frontal projection of the abdomen was obtained. A nonspecific bowel gas pattern is seen. Fecal material is seen in the colon. Degenerative changes of the thoracolumbar spine are noted. IMPRESSION: 1. A nonspecific bowel gas pattern is seen.
[2024-08-30] VITALS (22 sets, daily range): BP systolic 90–144; BP diastolic 46–76; PULSE 68–105; RESP 16–20; TEMP 97.1–98.4; O2SAT 98–99
[2024-08-30 04:47] LABS: BASOPHILS # (AUTO) 0.06 K/uL (0.00-0.20); BASOPHILS % (AUTO) 1.3 % (0.0-5.0); EOSINOPHILS # (AUTO) 0.12 K/uL (0.00-0.70); EOSINOPHILS % (AUTO) 2.6 % (0.0-8.0); HEMATOCRIT 31.7 % (36-48); IMMATURE GRANULOCYTE ABSOLUTE 0.05 K/uL (0-1); LYMPHOCYTES # (AUTO) 1.6 K/uL (1.0-4.8); LYMPHOCYTES % (AUTO) 35.3 % (21.0-51.0); MEAN CORPUSCULAR HEMOGLOBIN 32.7 pg (27.0-33.0); MEAN CORPUSCULAR HGB CONC 32.8 g/dL (32.0-36.0); MEAN CORPUSCULAR VOLUME 99.7 fL (79-99); MONOCYTES # (AUTO) 0.5 K/uL (0.1-1.0); MONOCYTES % (AUTO) 9.7 % (3.0-13.0); NEUTROPHILS # (AUTO) 2.3 K/uL (1.8-7.7); PLATELET COUNT (AUTO) 325 K/uL (130-400); RED BLOOD CELL COUNT(AUTO) 3.18 MIL/uL (4.00-5.50); WHITE BLOOD COUNT (AUTO) 4.6 K/uL (4.8-10.8)
[2024-08-30 05:09] LABS: ALBUMIN 1.6 g/dL (3.5-5.0); BILIRUBIN,TOTAL 2.6 mg/dL (0.2-1.0); CREATININE 0.6 mg/dL (0.5-1.0); TOTAL PROTEIN, SERUM 5.5 g/dL (6.0-8.3)
[2024-08-30 05:21] LABS: POTASSIUM 2.9 mmol/L (3.5-5.1)
[2024-08-30] MEDS ORDERED: proPOFol 10 MG/ML 20ML VIAL IV ONE ×3 (11:30→12:00)
[2024-08-30] MEDS: ondanSETRON 4MG INJ ONE (12:29)
--- NOTE | 2024-08-30 13:24 | PN ---
[facility] PROGRESS NOTE Date Patient Seen: Aug 30, 2024 Time of Visit: 13:21 Supervising Physician: JESUS MULLEN MD Primary Care Physician: Dr. Vu Mcallister Outpatient Specialists: Inpatient Consults: GI- Dr. Franco, Dr. Davenport (Surgery) PROBLEM LIST: Acute choledocholithiasis with intrahepatic dilatation Large Ventral Hernia with concern for strangulated omentum Influenza B positive Anorexia with dysgeusia, POA Constant Intractable abdominal pain with associated nausea and vomiting worsening over three-month Anemia of chronic disease Electrolyte derangement (hyponatremia, hypochloremia) Diabetes mellitus type 2 Chronic constipation History of total abdominal hysterectomy with bilateral salpingo-oophorectomy for complications related to endometriosis. Chronic problem list: History of liver cyst diagnosed in 1998, Hypertension, hyperlipidemia, vitamin-D deficiency, endometriosis, hernia, recent UTI in June 11 INTERVAL HISTORY: Patient seen and examined npo today , set to undergo EGD , Patient is pending ERCP on tomorrow by Dr. Franco. At this time she is on room air , on Tamiflu for Influenzal infection. Afebrile overnight. Of note the patient was have a large fat ventral containing ventral hernia with fluid and stranding most worrisome for incarceration and strangulated omentum. At bedside the hernia is not totally reducible. General surgery is on the case and following closely and pending Hernia repair and cholecystectomy. updated on plan of care REVIEW OF SYSTEMS: 12 point ROS reviewed with patient. Pertinent positives mentioned above. Otherwise negative. PHYSICAL EXAM: GENERAL: alert, weak, awake oriented x 3 HEENT: EOMI, Sclera non icteric, moist mucosa NECK: Supple, no JVD, trachea midline LUNGS: Clear breath sounds bilaterally. No wheezes HEART: Regular rate and rhythm. Normal S1 and S2, without murmurs ABD: Abdomen soft, +epigastric and RUQ tenderness, Bowel sounds present EXT: No clubbing cyanosis or edema NEURO: Alert and oriented X3, follows commands Vital Signs (last 8hr) Date Time Temp Pulse Resp B/P (MAP) Pulse Ox O2 Delivery O2 Flow Rate FiO2 08/30/24 12:40 97.7 79 18 122/61 98 Room Air 08/30/24 12:34 97.3 78 17 118/57 97 Room Air 08/30/24 12:29 79 17 117/58 96 Room Air 08/30/24 12:24 78 17 114/59 96 Room Air 08/30/24 12:19 79 16 112/58 98 Nonrebreathing Mask 10.0 08/30/24 12:14 80 17 109/58 97 Nonrebreathing Mask 10.0 08/30/24 12:09 83 17 101/52 97 Nonrebreathing Mask 10.0 08/30/24 12:04 97.2 84 16 90/46 98 Nonrebreathing Mask 10.0 08/30/24 12:03 98.4 105 18 144/76 99 Room Air 08/30/24 09:15 97.9 80 17 120/63 99 Room Air 08/30/24 08:00 99 Room Air* 0 21 LABS: Hematology Labs: Test 08/30/24 04:27 Range/Units White Blood Count 4.6 L 4.8-10.8 K/uL Red Blood Count 3.18 L 4.00-5.50 MIL/uL Hemoglobin 10.4 L 12.0-16.0 g/dL Hematocrit 31.7 L 36-48 % Mean Corpuscular Volume 99.7 H 79-99 fL Mean Corpuscular Hemoglobin 32.7 27.0-33.0 pg Mean Corpuscular Hemoglobin Concent 32.8 32.0-36.0 g/dL Red Cell Distribution Width 14.0 11.0-15.5 % Platelet Count 325 130-400 K/uL Mean Platelet Volume 8.1 7.5-10.5 fL Immature Granulocyte % (Auto) 1.1 H 0-1 % Neutrophils (%) (Auto) 50.0 40.0-77.0 % Lymphocytes (%) (Auto) 35.3 21.0-51.0 % Monocytes (%) (Auto) 9.7 3.0-13.0 % Eosinophils (%) (Auto) 2.6 0.0-8.0 % Basophils (%) (Auto) 1.3 0.0-5.0 % Neutrophils # (Auto) 2.3 1.8-7.7 K/uL Lymphocytes # (Auto) 1.6 1.0-4.8 K/uL Monocytes # (Auto) 0.5 0.1-1.0 K/uL Eosinophils # (Auto) 0.12 0.00-0.70 K/uL Basophils # (Auto) 0.06 0.00-0.20 K/uL Absolute Immature Granulocyte (auto 0.05 0-1 K/uL Nucleated Red Blood Cells 0.0 0.0-0.19 % Chemistry Labs: Test 08/30/24 11:10 08/30/24 04:27 08/29/24 05:32 08/29/24 03:29 Range/Units Whole Blood Glucose 83 70-110 MG/DL Sodium Level 134 L 136-145 mmol/L Potassium Level 2.9 *L 3.5-5.1 mmol/L Chloride Level 100 L 101-111 mmol/L Carbon Dioxide Level 21 21-32 mmol/L Blood Urea Nitrogen 4 L 7-18 mg/dL Creatinine 0.6 0.5-1.0 mg/dL Glomerular Filtration Rate Calc 93 >90 mL/min Random Glucose 99 70-105 mg/dL Total Calcium 7.9 L 8.5-10.1 mg/dL Total Bilirubin 2.6 H 0.2-1.0 mg/dL Aspartate Amino Transf (AST/SGOT) 51 H 10-37 U/L Alanine Aminotransferase (ALT/SGPT) 26 12-78 U/L Alkaline Phosphatase 818 *H 50-136 U/L Total Protein 5.5 L 6.0-8.3 g/dL Albumin 1.6 L 3.5-5.0 g/dL Lipase 8 L 16-77 U/L Bedside Glucose Comment Protocol Initiated Magnesium Level 1.70 L 1.80-2.40 mg/dL DIAGNOSTICS / RADIOLOGY RESULTS: [ ] PLAN Clear liquid diet as tolerated post EGD if okay with GI Continue on tamiflu 75mg PO BID for influenza B Rocephin and Flagyl General Surgery following closely and will undergo Verito and hernia repair Awaiting ERCP for Tuesday P.r.n. medications for: Pain management, nausea, vomiting, constipation, hypertension Monitor liver and kidney function. NEURO: Minimize central acting medications as possible. Maintain fall precautions, adequate lighting during the day PULMONARY: Supplemental 02 as needed. Maintain aspiration precautions at all times IS CARDIOVASCULAR: Follow hemodynamics. Vital signs per facility protocol GI & NUTRITION: Continue with nutritional support. Continue stool softeners and laxatives as needed. KIDNEYS & ELECTROLYTES: Strict monitoring of intake, output and overall fluid balance. Avoid nephrotoxic medications to the extent possible. Medications to be dosed according to renal function. Monitor electrolytes and replace as needed ENDOCRINE: Maintain blood glucose between 100-180 at all times. Hypoglycemia protocol in place INFECTIOUS DISEASE: Trend temperature, WBC and procalcitonin level Follow cultures, deescalate antibiotics as soon as possible. Panculture if new onset fever ONCOLOGY/HEMATOLOGY/COAGULATION: Monitor for s/s of bleeding Monitor hemoglobin, coagulation studies as needed SKIN: Pressure ulcer prevention per facility protocol Specialty mattress ORTHO/REHAB: Continue PT/OT Prophylaxis: Continue GI and DVT prophylaxis Code Status: Full Resuscitation Disposition: SNF referral PT/OT evaluation Total time: 35 minutes LYNDSEY NGUYEN Aug 30, 2024 13:24
--- NOTE | 2024-08-30 14:00 | NUR ---
Order received and spoke to nurse, Ayde, patient just returned from EGD and still groggy. PT team to follow.
[2024-08-30] MEDS: LACTATED RINGERS 1000ML 1,000 ML IV SCH (16:44)
[2024-08-30] MEDS ORDERED: PoTASSium chl 10% ELIXIR 20MEQ 20 MEQ/15 ML UDCUP PO PRN (22:30)
[2024-08-30] MEDS ORDERED: PoTASSium chloRIDE 20MEQ ER 20 MEQ ERTAB PO PRN (22:30)
[2024-08-31] VITALS (8 sets, daily range): BP systolic 105–132; BP diastolic 18–70; PULSE 77–85; RESP 16–19; TEMP 97.6–98.5; O2SAT 98
[2024-08-31 11:15] LABS: E. HISTOLYTICA (AMEBIASIS) AB Negative (Negative)
--- NOTE | 2024-08-31 13:39 | NUR ---
Discharge Planning: Still pending to be seen by PT. Pending evaluation and recommendations. SNF will admit for auth as soon as PT notes are available.
--- NOTE | 2024-08-31 20:49 | PN ---
[facility] PROGRESS NOTE Date Patient Seen: Aug 31, 2024 Time of Visit: 20:46 Supervising Physician: CAMRYN MULLEN MD Primary Care Physician: Dr. Vu Mcallister Outpatient Specialists: Inpatient Consults: GI- Dr. Franco, Dr. Davenport (Surgery) PROBLEM LIST: Acute choledocholithiasis with intrahepatic dilatation Large Ventral Hernia with concern for strangulated omentum Influenza B positive Anorexia with dysgeusia, POA Constant Intractable abdominal pain with associated nausea and vomiting worsening over three-month Anemia of chronic disease Electrolyte derangement (hyponatremia, hypochloremia) Diabetes mellitus type 2 Chronic constipation History of total abdominal hysterectomy with bilateral salpingo-oophorectomy for complications related to endometriosis. Chronic problem list: History of liver cyst diagnosed in 1998, Hypertension, hyperlipidemia, vitamin-D deficiency, endometriosis, hernia, recent UTI in June 11 INTERVAL HISTORY: ERCP has been rescheduled for Monday 09/03 Patient is doing well, remains on clear liquids no nausea, no vomiting mild abdominal discomfort no fevers REVIEW OF SYSTEMS: 12 point ROS reviewed with patient. Pertinent positives mentioned above. Otherwise negative. PHYSICAL EXAM: GENERAL: alert, weak, awake oriented x 3 HEENT: EOMI, Sclera non icteric, moist mucosa NECK: Supple, no JVD, trachea midline LUNGS: Clear breath sounds bilaterally. No wheezes HEART: Regular rate and rhythm. Normal S1 and S2, without murmurs ABD: Abdomen soft, no rebound, no guarding EXT: No clubbing cyanosis or edema NEURO: Alert and oriented X3, follows commands Vital Signs (last 8hr) Date Time Temp Pulse Resp B/P (MAP) Pulse Ox O2 Delivery O2 Flow Rate FiO2 08/31/24 20:00 98 Room Air* 0 21 08/31/24 20:00 98.1 80 16 117/57 98 Room Air 08/31/24 16:00 97.7 83 18 121/18 99 LABS: Hematology Labs: Test 08/30/24 04:27 Range/Units White Blood Count 4.6 L 4.8-10.8 K/uL Red Blood Count 3.18 L 4.00-5.50 MIL/uL Hemoglobin 10.4 L 12.0-16.0 g/dL Hematocrit 31.7 L 36-48 % Mean Corpuscular Volume 99.7 H 79-99 fL Mean Corpuscular Hemoglobin 32.7 27.0-33.0 pg Mean Corpuscular Hemoglobin Concent 32.8 32.0-36.0 g/dL Red Cell Distribution Width 14.0 11.0-15.5 % Platelet Count 325 130-400 K/uL Mean Platelet Volume 8.1 7.5-10.5 fL Immature Granulocyte % (Auto) 1.1 H 0-1 % Neutrophils (%) (Auto) 50.0 40.0-77.0 % Lymphocytes (%) (Auto) 35.3 21.0-51.0 % Monocytes (%) (Auto) 9.7 3.0-13.0 % Eosinophils (%) (Auto) 2.6 0.0-8.0 % Basophils (%) (Auto) 1.3 0.0-5.0 % Neutrophils # (Auto) 2.3 1.8-7.7 K/uL Lymphocytes # (Auto) 1.6 1.0-4.8 K/uL Monocytes # (Auto) 0.5 0.1-1.0 K/uL Eosinophils # (Auto) 0.12 0.00-0.70 K/uL Basophils # (Auto) 0.06 0.00-0.20 K/uL Absolute Immature Granulocyte (auto 0.05 0-1 K/uL Nucleated Red Blood Cells 0.0 0.0-0.19 % Chemistry Labs: Test 08/31/24 19:23 08/30/24 04:27 Range/Units Whole Blood Glucose 102 70-110 MG/DL Sodium Level 134 L 136-145 mmol/L Potassium Level 2.9 *L 3.5-5.1 mmol/L Chloride Level 100 L 101-111 mmol/L Carbon Dioxide Level 21 21-32 mmol/L Blood Urea Nitrogen 4 L 7-18 mg/dL Creatinine 0.6 0.5-1.0 mg/dL Glomerular Filtration Rate Calc 93 >90 mL/min Random Glucose 99 70-105 mg/dL Total Calcium 7.9 L 8.5-10.1 mg/dL Total Bilirubin 2.6 H 0.2-1.0 mg/dL Aspartate Amino Transf (AST/SGOT) 51 H 10-37 U/L Alanine Aminotransferase (ALT/SGPT) 26 12-78 U/L Alkaline Phosphatase 818 *H 50-136 U/L Total Protein 5.5 L 6.0-8.3 g/dL Albumin 1.6 L 3.5-5.0 g/dL Lipase 8 L 16-77 U/L DIAGNOSTICS / RADIOLOGY RESULTS: [Reviewed] PLAN continue on clear liquids diet continue on IV antibiotics pending ERCP for Tuesday NEURO: Minimize central acting medications as possible. Maintain fall precautions, adequate lighting during the day PULMONARY: Supplemental 02 as needed. Maintain aspiration precautions at all times IS CARDIOVASCULAR: Follow hemodynamics. Vital signs per facility protocol GI & NUTRITION: Continue with nutritional support. Continue stool softeners and laxatives as needed. KIDNEYS & ELECTROLYTES: Strict monitoring of intake, output and overall fluid balance. Avoid nephrotoxic medications to the extent possible. Medications to be dosed according to renal function. Monitor electrolytes and replace as needed ENDOCRINE: Maintain blood glucose between 100-180 at all times. Hypoglycemia protocol in place INFECTIOUS DISEASE: Trend temperature, WBC and procalcitonin level Follow cultures, deescalate antibiotics as soon as possible. Panculture if new onset fever ONCOLOGY/HEMATOLOGY/COAGULATION: Monitor for s/s of bleeding Monitor hemoglobin, coagulation studies as needed SKIN: Pressure ulcer prevention per facility protocol Specialty mattress ORTHO/REHAB: Continue PT/OT Prophylaxis: Continue GI and DVT prophylaxis Code Status: Full Resuscitation Disposition: SNF referral PT/OT evaluation ATTESTATION BY PHYSICIAN The clinical note has been scribed by Montana Esquivel BSc on my behalf and I attest to the accuracy of the note Camryn Mullen MD I personally scribed for CAMRYN MULLEN MD ([email or web address]) on 08/31/24 at 20:49. Electronically submitted by Montana Esquivel ([email or web address]). CAMRYN MULLEN MD Aug 31, 2024 20:49
[2024-09-01] VITALS (7 sets, daily range): BP systolic 111–139; BP diastolic 58–65; PULSE 77–95; RESP 16–20; TEMP 97.7–98.2; O2SAT 98
[2024-09-01 05:26] LABS: BASOPHILS # (AUTO) 0.06 K/uL (0.00-0.20); BASOPHILS % (AUTO) 1.2 % (0.0-5.0); EOSINOPHILS # (AUTO) 0.15 K/uL (0.00-0.70); HEMATOCRIT 30.5 % (36-48); IMMATURE GRANULOCYTE ABSOLUTE 0.06 K/uL (0-1); LYMPHOCYTES # (AUTO) 1.5 K/uL (1.0-4.8); LYMPHOCYTES % (AUTO) 28.9 % (21.0-51.0); MEAN CORPUSCULAR HGB CONC 32.8 g/dL (32.0-36.0); MEAN CORPUSCULAR VOLUME 100.7 fL (79-99); MONOCYTES # (AUTO) 0.5 K/uL (0.1-1.0); MONOCYTES % (AUTO) 10.2 % (3.0-13.0); NEUTROPHILS # (AUTO) 2.8 K/uL (1.8-7.7); NEUTROPHILS % (AUTO) 55.5 % (40.0-77.0); PLATELET COUNT (AUTO) 293 K/uL (130-400); RED BLOOD CELL COUNT(AUTO) 3.03 MIL/uL (4.00-5.50); RED CELL DISTRIBUTION WIDTH 14.6 % (11.0-15.5); WHITE BLOOD COUNT (AUTO) 5.1 K/uL (4.8-10.8)
[2024-09-01 06:23] LABS: ALBUMIN 1.6 g/dL (3.5-5.0); BILIRUBIN,DIRECT 1.8 mg/dL (0.0-0.3); BILIRUBIN,TOTAL 2.2 mg/dL (0.2-1.0); CREATININE 0.6 mg/dL (0.5-1.0); POTASSIUM 3.3 mmol/L (3.5-5.1); TOTAL PROTEIN, SERUM 5.1 g/dL (6.0-8.3)
--- NOTE | 2024-09-01 11:16 | PN ---
PROGRESS NOTE Date of Service: Sep 01, 2024 Time of Service: 11:13 SUBJECTIVE: [ No acute events overnight. Patient did have a endoscopic ultrasound. There was this is a esophageal ring that was dilated. There appeared to be large cystic structures and ductal dilation to intrahepatic clear. Some stones within the gallbladder and some stones within the common bile duct. The common bile duct does not look dilated. Patient is tolerating a diet around nine scheduled for her ERCP.] REVIEW OF SYSTEMS PHYSICAL EXAM Awake, alert, oriented x3 Unlabored Regular rate and rhythm Abdomen soft, nontender, nondistended Vital Signs (last 8hr) Date Time Temp Pulse Resp B/P (MAP) Pulse Ox O2 Delivery O2 Flow Rate FiO2 09/01/24 08:31 97.7 84 19 123/65 98 Room Air 09/01/24 03:32 98.1 81 16 120/63 96 Room Air LABS: Laboratory: Test 09/01/24 05:29 09/01/24 05:13 Range/Units Whole Blood Glucose 96 70-110 MG/DL White Blood Count 5.1 4.8-10.8 K/uL Red Blood Count 3.03 L 4.00-5.50 MIL/uL Hemoglobin 10.0 L 12.0-16.0 g/dL Hematocrit 30.5 L 36-48 % Mean Corpuscular Volume 100.7 H 79-99 fL Mean Corpuscular Hemoglobin 33.0 27.0-33.0 pg Mean Corpuscular Hemoglobin Concent 32.8 32.0-36.0 g/dL Red Cell Distribution Width 14.6 11.0-15.5 % Platelet Count 293 130-400 K/uL Mean Platelet Volume 8.4 7.5-10.5 fL Immature Granulocyte % (Auto) 1.2 H 0-1 % Neutrophils (%) (Auto) 55.5 40.0-77.0 % Lymphocytes (%) (Auto) 28.9 21.0-51.0 % Monocytes (%) (Auto) 10.2 3.0-13.0 % Eosinophils (%) (Auto) 3.0 0.0-8.0 % Basophils (%) (Auto) 1.2 0.0-5.0 % Neutrophils # (Auto) 2.8 1.8-7.7 K/uL Lymphocytes # (Auto) 1.5 1.0-4.8 K/uL Monocytes # (Auto) 0.5 0.1-1.0 K/uL Eosinophils # (Auto) 0.15 0.00-0.70 K/uL Basophils # (Auto) 0.06 0.00-0.20 K/uL Absolute Immature Granulocyte (auto 0.06 0-1 K/uL Nucleated Red Blood Cells 0.0 0.0-0.19 % Sodium Level 140 136-145 mmol/L Potassium Level 3.3 L 3.5-5.1 mmol/L Chloride Level 106 101-111 mmol/L Carbon Dioxide Level 21 21-32 mmol/L Blood Urea Nitrogen 5 L 7-18 mg/dL Creatinine 0.6 0.5-1.0 mg/dL Glomerular Filtration Rate Calc 93 >90 mL/min Random Glucose 96 70-105 mg/dL Total Calcium 8.2 L 8.5-10.1 mg/dL Total Bilirubin 2.2 H 0.2-1.0 mg/dL Direct Bilirubin 1.8 H 0.0-0.3 mg/dL Aspartate Amino Transf (AST/SGOT) 44 H 10-37 U/L Alanine Aminotransferase (ALT/SGPT) 20 12-78 U/L Alkaline Phosphatase 699 *H 50-136 U/L Total Protein 5.1 L 6.0-8.3 g/dL Albumin 1.6 L 3.5-5.0 g/dL DIAGNOSTICS / RADIOLOGY: [ ] ASSESSMENT: [ Gallstones and the patient that also has biliary dilatation ] PLAN: [ Reviewed patient's endoscopic ultrasound and also personally reviewed the images. Now some stones within the gallbladder and common bile duct. I am still concerned about the intrahepatic ductal dilatation and cystic structures. Patient is scheduled to get a ERCP tomorrow based on those studies we will plan on a laparoscopic cholecystectomy with intraoperative cholangiogram early in the week. Risks associated with the procedure not limited to infection, bleeding, injury to surrounding structures has been explained to patient and she indicates she understands. ] MARGARET HAMPTON MD Sep 01, 2024 11:16
--- NOTE | 2024-09-01 15:06 | PN ---
[facility] PROGRESS NOTE Date Patient Seen: Sep 01, 2024 Time of Visit: 15:06 Supervising Physician: [Dr. Salvador] Primary Care Physician: Dr. Vu Mcallister Outpatient Specialists: Inpatient Consults: GI- Dr. Franco, Dr. Davenport (Surgery) PROBLEM LIST: Acute cholecystitis and choledocholithiasis with intrahepatic dilatation Large Ventral Hernia with concern for strangulated omentum Acute diverticulitis, on antibiotics Influenza B positive, treated Constant Intractable abdominal pain with associated nausea and vomiting worsening over three-month with unintentional weight loss Non-obstructive nephrolithiasis Polycystic liver disease Anemia of chronic disease Electrolyte derangement (hyponatremia, hypochloremia) Anorexia with dysgeusia, POA Diabetes mellitus type 2 Chronic constipation History of total abdominal hysterectomy with bilateral salpingo-oophorectomy for complications related to endometriosis. Chronic problem list: History of liver cyst diagnosed in 1998, Hypertension, hyperlipidemia, vitamin-D deficiency, endometriosis, hernia, recent UTI in June 11 INTERVAL HISTORY: Patient continues on clear liquids, is feeling well without nausea or vomiting. Admits mild abdominal discomfort but no fever. ERCP has been rescheduled for Monday 09/03, pending possible laparoscopic cholecystectomy with intraoperative cholangiogram by general surgery after ERCP. REVIEW OF SYSTEMS: 12 point ROS reviewed with patient. Pertinent positives mentioned above. Otherwise negative. PHYSICAL EXAM: GENERAL: alert, weak, awake oriented x 3 HEENT: EOMI, Sclera non icteric, moist mucosa NECK: Supple, no JVD, trachea midline LUNGS: Clear breath sounds bilaterally. No wheezes HEART: Regular rate and rhythm. Normal S1 and S2, without murmurs ABD: Abdomen soft, no rebound, no guarding EXT: No clubbing cyanosis or edema NEURO: Alert and oriented X3, follows commands Vital Signs (last 8hr) Date Time Temp Pulse Resp B/P (MAP) Pulse Ox O2 Delivery O2 Flow Rate FiO2 09/01/24 11:23 97.7 77 19 111/58 98 Room Air 09/01/24 08:31 97.7 84 19 123/65 98 Room Air LABS: Hematology Labs: Test 09/01/24 05:13 Range/Units White Blood Count 5.1 4.8-10.8 K/uL Red Blood Count 3.03 L 4.00-5.50 MIL/uL Hemoglobin 10.0 L 12.0-16.0 g/dL Hematocrit 30.5 L 36-48 % Mean Corpuscular Volume 100.7 H 79-99 fL Mean Corpuscular Hemoglobin 33.0 27.0-33.0 pg Mean Corpuscular Hemoglobin Concent 32.8 32.0-36.0 g/dL Red Cell Distribution Width 14.6 11.0-15.5 % Platelet Count 293 130-400 K/uL Mean Platelet Volume 8.4 7.5-10.5 fL Immature Granulocyte % (Auto) 1.2 H 0-1 % Neutrophils (%) (Auto) 55.5 40.0-77.0 % Lymphocytes (%) (Auto) 28.9 21.0-51.0 % Monocytes (%) (Auto) 10.2 3.0-13.0 % Eosinophils (%) (Auto) 3.0 0.0-8.0 % Basophils (%) (Auto) 1.2 0.0-5.0 % Neutrophils # (Auto) 2.8 1.8-7.7 K/uL Lymphocytes # (Auto) 1.5 1.0-4.8 K/uL Monocytes # (Auto) 0.5 0.1-1.0 K/uL Eosinophils # (Auto) 0.15 0.00-0.70 K/uL Basophils # (Auto) 0.06 0.00-0.20 K/uL Absolute Immature Granulocyte (auto 0.06 0-1 K/uL Nucleated Red Blood Cells 0.0 0.0-0.19 % Chemistry Labs: Test 09/01/24 10:40 09/01/24 05:13 Range/Units Whole Blood Glucose 114 H 70-110 MG/DL Sodium Level 140 136-145 mmol/L Potassium Level 3.3 L 3.5-5.1 mmol/L Chloride Level 106 101-111 mmol/L Carbon Dioxide Level 21 21-32 mmol/L Blood Urea Nitrogen 5 L 7-18 mg/dL Creatinine 0.6 0.5-1.0 mg/dL Glomerular Filtration Rate Calc 93 >90 mL/min Random Glucose 96 70-105 mg/dL Total Calcium 8.2 L 8.5-10.1 mg/dL Total Bilirubin 2.2 H 0.2-1.0 mg/dL Direct Bilirubin 1.8 H 0.0-0.3 mg/dL Aspartate Amino Transf (AST/SGOT) 44 H 10-37 U/L Alanine Aminotransferase (ALT/SGPT) 20 12-78 U/L Alkaline Phosphatase 699 *H 50-136 U/L Total Protein 5.1 L 6.0-8.3 g/dL Albumin 1.6 L 3.5-5.0 g/dL DIAGNOSTICS / RADIOLOGY RESULTS: NM HIDA WO EF/CCK REASON: elevated liver enzymes. COMPARISON: None TECHNIQUE: Hepatobiliary imaging study was performed with 7 mCi of technetium Choletec through intravenous route. 4 hour delayed was performed. FINDINGS: Normal visualization of bile activity noted within 1 hour. There is no visualization of gallbladder activity at 4 hours suspicious for acute cholecystitis in a proper clinical setting. IMPRESSION: Findings suspicious for acute cholecystitis in a proper clinical setting. PLAN continue on clear liquids diet continue on IV antibiotics pending ERCP for Tuesday NEURO: Minimize central acting medications as possible. Maintain fall precautions, adequate lighting during the day PULMONARY: Supplemental 02 as needed. Maintain aspiration precautions at all times IS CARDIOVASCULAR: Follow hemodynamics. Vital signs per facility protocol GI & NUTRITION: Continue with nutritional support. Continue stool softeners and laxatives as needed. KIDNEYS & ELECTROLYTES: Strict monitoring of intake, output and overall fluid balance. Avoid nephrotoxic medications to the extent possible. Medications to be dosed according to renal function. Monitor electrolytes and replace as needed ENDOCRINE: Maintain blood glucose between 100-180 at all times. Hypoglycemia protocol in place INFECTIOUS DISEASE: Trend temperature, WBC and procalcitonin level Follow cultures, deescalate antibiotics as soon as possible. Panculture if new onset fever ONCOLOGY/HEMATOLOGY/COAGULATION: Monitor for s/s of bleeding Monitor hemoglobin, coagulation studies as needed SKIN: Pressure ulcer prevention per facility protocol Specialty mattress ORTHO/REHAB: Continue PT/OT Prophylaxis: Continue GI and DVT prophylaxis Code Status: Full Resuscitation Disposition: SNF referral PT/OT evaluation ATTESTATION BY PHYSICIAN The clinical note has been scribed by Montana Esquivel BSc on my behalf and I attest to the accuracy of the note Casey Noriega MD, MARCUS A PA Sep 01, 2024 15:06
[2024-09-02] VITALS (26 sets, daily range): BP systolic 115–150; BP diastolic 53–82; PULSE 72–96; RESP 15–20; TEMP 96.6–98.7; O2SAT 98
[2024-09-02] MEDS ORDERED: IOHEXOL-350 50ML VIAL IV ONE (09:30)
[2024-09-02] MEDS ORDERED: proPOFol 10 MG/ML 20ML VIAL IV ONE (09:41)
[2024-09-02] MEDS ORDERED: ketaMINE 50MG/ML SYRINGE 50 MG/ML DISP.SYRIN ONE (09:41)
[2024-09-02] MEDS ORDERED: SUCCINYLCHOLINE CHLORIDE 20 MG/ML 10 ML VIAL ONE (09:42)
[2024-09-02] MEDS ORDERED: LIDOCAINE PF 100MG/5ML (2%) SYRINGE 5ML ONE (09:42)
[2024-09-02] MEDS ORDERED: ePHEDrine SULFate 50 MG/ML AMPULE ONE (10:05)
[2024-09-02] MEDS ORDERED: FENTanyl CITRate PF 50 MCG/1 ML 2ML VIAL ONE (10:14)
[2024-09-02] MEDS: INDOMETHACIN 100 MG SUPP.RECT RC ONE (11:00)
--- NOTE | 2024-09-02 11:03 | PN ---
[facility] PROGRESS NOTE Date Patient Seen: Sep 02, 2024 Time of Visit: 11:00 Supervising Physician: [Dr. Salvador] Primary Care Physician: Dr. Vu Mcallister Outpatient Specialists: Inpatient Consults: GI- Dr. Franco, Dr. Davenport (Surgery) PROBLEM LIST: Acute cholecystitis and choledocholithiasis with intrahepatic dilatation s/p ERCP with 9mm ductal stone removed Large Ventral Hernia with concern for strangulated omentum Acute diverticulitis, on antibiotics Influenza B positive, treated Constant Intractable abdominal pain with associated nausea and vomiting worse juan m over three-month with unintentional weight loss Non-obstructive nephrolithiasis Polycystic liver disease Anemia of chronic disease Electrolyte derangement (hyponatremia, hypochloremia) Anorexia with dysgeusia, POA Diabetes mellitus type 2 Chronic constipation History of total abdominal hysterectomy with bilateral salpingo-oophorectomy for complications related to endometriosis. Chronic problem list: History of liver cyst diagnosed in 1998, Hypertension, hyperlipidemia, vitamin-D deficiency, endometriosis, hernia, recent UTI in June 11 INTERVAL HISTORY: Blood pressure is 115/56 with a heart rate of 73, afebrile room air. Patient continues on IV antibiotics with Rocephin and Flagyl. She has refused LR. Her most recent labs are unremarkable with a WBC of 5.1 BNP is grossly within normal limits, has hypokalemia 3.3 and elevated alkaline phosphatase. Total bilirubin is improved to 2.2. Patient continues on clear liquids, is feeling well without nausea or vomiting. She is s/p ERCP today. She is awake, alert and oriented X 3. Pain is adequately controlled. No current appetite but has been advanced to clear liquids per GI. She will have an endoscopy in AM. Also pending possible laparoscopic cholecystectomy with intraoperative cholangiogram by general surgery after. REVIEW OF SYSTEMS: 12 point ROS reviewed with patient. Pertinent positives mentioned above. Otherwise negative. PHYSICAL EXAM: GENERAL: alert, weak, awake oriented x 3 HEENT: EOMI, Sclera non icteric, moist mucosa NECK: Supple, no JVD, trachea midline LUNGS: Clear breath sounds bilaterally. No wheezes HEART: Regular rate and rhythm. Normal S1 and S2, without murmurs ABD: Abdomen soft, no rebound, no guarding EXT: No clubbing cyanosis or edema NEURO: Alert and oriented X3, follows commands Vital Signs (last 8hr) Date Time Temp Pulse Resp B/P (MAP) Pulse Ox O2 Delivery O2 Flow Rate FiO2 09/02/24 08:26 97.3 73 16 115/56 98 09/02/24 04:00 98.4 88 20 122/66 100 Room Air LABS: Hematology Labs: Test 09/01/24 05:13 Range/Units White Blood Count 5.1 4.8-10.8 K/uL Red Blood Count 3.03 L 4.00-5.50 MIL/uL Hemoglobin 10.0 L 12.0-16.0 g/dL Hematocrit 30.5 L 36-48 % Mean Corpuscular Volume 100.7 H 79-99 fL Mean Corpuscular Hemoglobin 33.0 27.0-33.0 pg Mean Corpuscular Hemoglobin Concent 32.8 32.0-36.0 g/dL Red Cell Distribution Width 14.6 11.0-15.5 % Platelet Count 293 130-400 K/uL Mean Platelet Volume 8.4 7.5-10.5 fL Immature Granulocyte % (Auto) 1.2 H 0-1 % Neutrophils (%) (Auto) 55.5 40.0-77.0 % Lymphocytes (%) (Auto) 28.9 21.0-51.0 % Monocytes (%) (Auto) 10.2 3.0-13.0 % Eosinophils (%) (Auto) 3.0 0.0-8.0 % Basophils (%) (Auto) 1.2 0.0-5.0 % Neutrophils # (Auto) 2.8 1.8-7.7 K/uL Lymphocytes # (Auto) 1.5 1.0-4.8 K/uL Monocytes # (Auto) 0.5 0.1-1.0 K/uL Eosinophils # (Auto) 0.15 0.00-0.70 K/uL Basophils # (Auto) 0.06 0.00-0.20 K/uL Absolute Immature Granulocyte (auto 0.06 0-1 K/uL Nucleated Red Blood Cells 0.0 0.0-0.19 % Chemistry Labs: Test 09/02/24 05:30 09/01/24 05:13 Range/Units Whole Blood Glucose 102 70-110 MG/DL Sodium Level 140 136-145 mmol/L Potassium Level 3.3 L 3.5-5.1 mmol/L Chloride Level 106 101-111 mmol/L Carbon Dioxide Level 21 21-32 mmol/L Blood Urea Nitrogen 5 L 7-18 mg/dL Creatinine 0.6 0.5-1.0 mg/dL Glomerular Filtration Rate Calc 93 >90 mL/min Random Glucose 96 70-105 mg/dL Total Calcium 8.2 L 8.5-10.1 mg/dL Total Bilirubin 2.2 H 0.2-1.0 mg/dL Direct Bilirubin 1.8 H 0.0-0.3 mg/dL Aspartate Amino Transf (AST/SGOT) 44 H 10-37 U/L Alanine Aminotransferase (ALT/SGPT) 20 12-78 U/L Alkaline Phosphatase 699 *H 50-136 U/L Total Protein 5.1 L 6.0-8.3 g/dL Albumin 1.6 L 3.5-5.0 g/dL DIAGNOSTICS / RADIOLOGY RESULTS: NM HIDA WO EF/CCK REASON: elevated liver enzymes. COMPARISON: None TECHNIQUE: Hepatobiliary imaging study was performed with 7 mCi of technetium Choletec through intravenous route. 4 hour delayed was performed. FINDINGS: Normal visualization of bile activity noted within 1 hour. There is no visualization of gallbladder activity at 4 hours suspicious for acute cholecystitis in a proper clinical setting. IMPRESSION: Findings suspicious for acute cholecystitis in a proper clinical setting. PLAN continue on clear liquids diet NPO after midnight for colonscopy in AM Monitor labs, CBC, CMP, lipase in AM Monitor for post ERCP pancreatitis Pending general surgery Continue on IV antibiotics NEURO: Minimize central acting medications as possible. Maintain fall precautions, adequate lighting during the day PULMONARY: Supplemental 02 as needed. Maintain aspiration precautions at all times IS CARDIOVASCULAR: Follow hemodynamics. Vital signs per facility protocol GI & NUTRITION: Continue with nutritional support. Continue stool softeners and laxatives as needed. KIDNEYS & ELECTROLYTES: Strict monitoring of intake, output and overall fluid balance. Avoid nephrotoxic medications to the extent possible. Medications to be dosed according to renal function. Monitor electrolytes and replace as needed ENDOCRINE: Maintain blood glucose between 100-180 at all times. Hypoglycemia protocol in place INFECTIOUS DISEASE: Trend temperature, WBC and procalcitonin level Follow cultures, deescalate antibiotics as soon as possible. Panculture if new onset fever ONCOLOGY/HEMATOLOGY/COAGULATION: Monitor for s/s of bleeding Monitor hemoglobin, coagulation studies as needed SKIN: Pressure ulcer prevention per facility protocol Specialty mattress ORTHO/REHAB: Continue PT/OT Prophylaxis: Continue GI and DVT prophylaxis Code Status: Full Resuscitation Disposition: SNF referral PT/OT evaluation ATTESTATION BY PHYSICIAN The clinical note has been scribed by [place] Esquivel BSc on my behalf and I attest to the accuracy of the note Casey Noriega MD, MARCUS A PA Sep 02, 2024 11:03
--- NOTE | 2024-09-02 11:12 | HMCIMG ---
ERCP BILI/PANC DUCT HISTORY: DILATED CBD TECHNIQUE: ERCP BILI/PANC DUCT FINDINGS/IMPRESSION: Fluoroscopic image/s obtained for procedure documentation. Please see operative report for more details. Fluoroscopy time 5.8 minutes.
--- NOTE | 2024-09-02 12:27 | NUR ---
ADMINISTERED INDOMETHACIN @1006
[2024-09-02] MEDS: LACTULOSE 20 GM/30 ML UDCUP PO ONE ×2 (12:30→15:55)
[2024-09-02] MEDS: MAGNESIUM CITRATE 296 ML SOLUTION PO ONE (15:55)
[2024-09-02] MEDS: BisaCODYL 5 MG TABLET.DR PO ONE ×2 (15:55→20:35)
[2024-09-02] MEDS: PEG 3350/NA SULF,BICARB,CL/KCL 4000 ML SOLN PO ONE (17:27)
[2024-09-03] VITALS (23 sets, daily range): BP systolic 101–119; BP diastolic 46–70; PULSE 71–93; RESP 15–20; TEMP 96.6–98; O2SAT 98
[2024-09-03 05:01] LABS: HEMATOCRIT 32.8 % (36-48); MEAN CORPUSCULAR HEMOGLOBIN 33.2 pg (27.0-33.0); MEAN CORPUSCULAR HGB CONC 32.3 g/dL (32.0-36.0); MEAN CORPUSCULAR VOLUME 102.8 fL (79-99); RED BLOOD CELL COUNT(AUTO) 3.19 MIL/uL (4.00-5.50); RED CELL DISTRIBUTION WIDTH 15.1 % (11.0-15.5); WHITE BLOOD COUNT (AUTO) 7.6 K/uL (4.8-10.8)
[2024-09-03 05:50] LABS: ALBUMIN 1.7 g/dL (3.5-5.0); BILIRUBIN,TOTAL 4.3 mg/dL (0.2-1.0); CREATININE 0.7 mg/dL (0.5-1.0); POTASSIUM 3.1 mmol/L (3.5-5.1); TOTAL PROTEIN, SERUM 5.4 g/dL (6.0-8.3)
--- NOTE | 2024-09-03 11:48 | PN ---
[facility] PROGRESS NOTE Date Patient Seen: Sep 03, 2024 Time of Visit: 11:42 Supervising Physician: [Dr. Wilks] Primary Care Physician: Dr. Vu Mcallister Outpatient Specialists: Inpatient Consults: GI- Dr. Franco, Dr. Davenport (Surgery) PROBLEM LIST: Acute cholecystitis and choledocholithiasis with intrahepatic dilatation s/p ERCP with 9mm ductal stone removed Large Ventral Hernia with concern for strangulated omentum Acute diverticulitis, on antibiotics Influenza B positive, treated Constant Intractable abdominal pain with associated nausea and vomiting wor sening over three-month with unintentional weight loss Non-obstructive nephrolithiasis Polycystic liver disease Anemia of chronic disease Electrolyte derangement (hyponatremia, hypochloremia) Anorexia with dysgeusia, POA Diabetes mellitus type 2 Chronic constipation History of total abdominal hysterectomy with bilateral salpingo-oophorectomy for complications related to endometriosis. Chronic problem list: History of liver cyst diagnosed in 1998, Hypertension, hyperlipidemia, vitamin-D deficiency, endometriosis, hernia, recent UTI in June 11 INTERVAL HISTORY: Blood pressure is 115/56 with a heart rate of 73, afebrile room air. Patient continues on IV antibiotics with Rocephin and Flagyl. She has refused LR. Her most recent labs are unremarkable with a WBC of 5.1 BNP is grossly within normal limits, has hypokalemia 3.3 and elevated alkaline phosphatase. Total bilirubin is improved to 2.2. Patient continues on clear liquids, is feeling well without nausea or vomiting. She is s/p ERCP today. She is awake, alert and oriented X 3. Pain is adequately controlled. No current appetite but has been advanced to clear liquids per GI. She will have an endoscopy in AM. Also pending possible lapar oscopic cholecystectomy with intraoperative cholangiogram by general surgery after. 09/03 blood pressure is 119/67 with a heart rate of 88, afebrile on room air. She continues on IV fluids with LR at 100 mL an hour, antibiotics with Rocephin and Flagyl. She is s/p ERCP with sphincterotomy and ductal stone removal yesterday by Dr. Franco. Her CBC is unremarkable with a WBC of 6, hemoglobin 10 and platelets of 251. CMP shows remarkably elevated alkaline phosphatase, likely secondary to procedure. Albumin is low at 1.7 and lipase is normal at eight. Has mild hypokalemia, no other electrolyte derangement. AST slightly elevated to 131, postop. She is pending a colonoscopy today with Dr. Franco. Blood and urine cultures are negative. She is also being followed by General surgery who is planning for laparoscopic cholecystectomy with intraoperative cholangiogram as well as possible hernia repair. Her pain is well controlled, denies any nausea or vomiting. REVIEW OF SYSTEMS: 12 point ROS reviewed with patient. Pertinent positives mentioned above. Otherwise negative. PHYSICAL EXAM: GENERAL: alert, weak, awake oriented x 3 HEENT: EOMI, Sclera non icteric, moist mucosa NECK: Supple, no JVD, trachea midline LUNGS: Clear breath sounds bilaterally. No wheezes HEART: Regular rate and rhythm. Normal S1 and S2, without murmurs ABD: Abdomen soft, no rebound, no guarding EXT: No clubbing cyanosis or edema NEURO: Alert and oriented X3, follows commands Vital Signs (last 8hr) Date Time Temp Pulse Resp B/P (MAP) Pulse Ox O2 Delivery O2 Flow Rate FiO2 09/03/24 08:20 97.5 88 18 119/67 98 Room Air 09/03/24 04:00 97.7 86 16 109/50 98 Room Air LABS: Hematology Labs: Test 09/03/24 04:52 Range/Units White Blood Count 7.6 4.8-10.8 K/uL Red Blood Count 3.19 L 4.00-5.50 MIL/uL Hemoglobin 10.6 L 12.0-16.0 g/dL Hematocrit 32.8 L 36-48 % Mean Corpuscular Volume 102.8 H 79-99 fL Mean Corpuscular Hemoglobin 33.2 H 27.0-33.0 pg Mean Corpuscular Hemoglobin Concent 32.3 32.0-36.0 g/dL Red Cell Distribution Width 15.1 11.0-15.5 % Platelet Count 251 130-400 K/uL Mean Platelet Volume 8.7 7.5-10.5 fL Nucleated Red Blood Cells 0.0 0.0-0.19 % Chemistry Labs: Test 09/03/24 05:10 09/03/24 04:52 Range/Units Whole Blood Glucose 104 70-110 MG/DL Sodium Level 137 136-145 mmol/L Potassium Level 3.1 L 3.5-5.1 mmol/L Chloride Level 101 101-111 mmol/L Carbon Dioxide Level 20 L 21-32 mmol/L Blood Urea Nitrogen 7 7-18 mg/dL Creatinine 0.7 0.5-1.0 mg/dL Glomerular Filtration Rate Calc 90 >90 mL/min Random Glucose 112 H 70-105 mg/dL Total Calcium 8.4 L 8.5-10.1 mg/dL Total Bilirubin 4.3 H 0.2-1.0 mg/dL Aspartate Amino Transf (AST/SGOT) 131 H 10-37 U/L Alanine Aminotransferase (ALT/SGPT) 33 12-78 U/L Alkaline Phosphatase 1004 *H 50-136 U/L Total Protein 5.4 L 6.0-8.3 g/dL Albumin 1.7 L 3.5-5.0 g/dL Lipase 8 L 16-77 U/L DIAGNOSTICS / RADIOLOGY RESULTS: Reviewed. PLAN Colonoscopy today by Dr. Franco NPO after midnight for general surgery Continue antibiotics until procedures are completed Monitor labs CMP in AM Monitor for post ERCP pancreatitis Pending general surgery Continue on IV antibiotics NEURO: Minimize central acting medications as possible. Maintain fall precautions, adequate lighting during the day PULMONARY: Supplemental 02 as needed. Maintain aspiration precautions at all times IS CARDIOVASCULAR: Follow hemodynamics. Vital signs per facility protocol GI & NUTRITION: Continue with nutritional support. Continue stool softeners and laxatives as needed. KIDNEYS & ELECTROLYTES: Strict monitoring of intake, output and overall fluid balance. Avoid nephrotoxic medications to the extent possible. Medications to be dosed according to renal function. Monitor electrolytes and replace as needed ENDOCRINE: Maintain blood glucose between 100-180 at all times. Hypoglycemia protocol in place INFECTIOUS DISEASE: Trend temperature, WBC and procalcitonin level Follow cultures, deescalate antibiotics as soon as possible. Panculture if new onset fever ONCOLOGY/HEMATOLOGY/COAGULATION: Monitor for s/s of bleeding Monitor hemoglobin, coagulation studies as needed SKIN: Pressure ulcer prevention per facility protocol Specialty mattress ORTHO/REHAB: Continue PT/OT Prophylaxis: Continue GI and DVT prophylaxis Code Status: Full Resuscitation Disposition: SNF referral PT/OT evaluation ATTESTATION BY PHYSICIAN The clinical note has been scribed by [place] Esquivel BSc on my behalf and I attest to the accuracy of the note Casey Noriega MD, MARCUS A PA Sep 03, 2024 11:48
[2024-09-03] MEDS ORDERED: proPOFol 10 MG/ML 20ML VIAL IV ONE ×2 (13:21→13:53)
[2024-09-03] MEDS ORDERED: LIDOCAINE PF 100MG/5ML (2%) SYRINGE 5ML ONE (13:21)
[2024-09-04 04:00] VITALS: BP 112/58; PULSE 80; RESP 16; TEMP 98
[2024-09-04 05:54] LABS: ALBUMIN 1.5 g/dL (3.5-5.0); BILIRUBIN,TOTAL 2.9 mg/dL (0.2-1.0); CREATININE 0.7 mg/dL (0.5-1.0); POTASSIUM 3.4 mmol/L (3.5-5.1)
[2024-09-04 08:00] VITALS: BP 109/62; PULSE 86; RESP 16; TEMP 97.8; O2SAT 96
--- NOTE | 2024-09-04 11:49 | HMCIMG ---
COLON BARIUM W/WO KUB REASON: WEIGHT LOSS,ANEMIA,LOWER ABD PAIN COMPARISON: None TECHNIQUE: Air-contrast barium enema was performed with fluoroscopic observation. Fluoroscopy time was 3 minutes. Exam was initially attempted however patient to loss the tip. Patient was stating she could not continue, but eventually changed her mind and 23-tipped. Exam then proceeded in the usual fashion. FINDINGS: There is moderate to marked diverticulosis in the sigmoid colon. There is mild diverticulosis of the descending colon. A sending and transverse colon appear normal. There is a small amount of reflux into the appendix and into the a normal-appearing terminal ileum. There are no focal masses. There are no visible polyps. Mucosal pattern appears unremarkable. IMPRESSION: 1. Mild diverticulosis of the descending colon and moderate diverticulosis of the sigmoid colon. 2. Otherwise unremarkable air contrast barium enema.
[2024-09-04 12:00] VITALS: BP 118/64; PULSE 75; RESP 18; TEMP 97.6
--- NOTE | 2024-09-04 15:01 | PN ---
[facility] PROGRESS NOTE Date Patient Seen: Sep 04, 2024 Time of Visit: 14:59 Supervising Physician: [Dr. Wilks] Primary Care Physician: Dr. Vu Mcallister Outpatient Specialists: Inpatient Consults: GI- Dr. Franco, Dr. Davenport (Surgery) PROBLEM LIST: Acute cholecystitis and choledocholithiasis with intrahepatic dilatation s/p ERCP with 9mm ductal stone removed Large Ventral Hernia with concern for strangulated omentum Acute diverticulitis, on antibiotics s/p colonoscopy 09/02/[address] Franco Influenza B positive, treated Constant Intractable abdominal pain with associated nausea and vomiting worsening over three-month with unintentional weight loss Non-obstructive nephrolithiasis Polycystic liver disease Anemia of chronic disease Electrolyte derangement (hyponatremia, hypochloremia) Anorexia with dysgeusia, POA Diabetes mellitus type 2 Chronic constipation History of total abdominal hysterectomy with bilateral salpingo-oophorectomy for complications related to endometriosis. Chronic problem list: History of liver cyst diagnosed in 1998, Hypertension, hyperlipidemia, vitamin-D deficiency, endometriosis, hernia, recent UTI in June 11 INTERVAL HISTORY: Blood pressure is 115/56 with a heart rate of 73, afebrile room air. Patient continues on IV antibiotics with Rocephin and Flagyl. She has refused LR. Her most recent labs are unremarkable with a WBC of 5.1 BNP is grossly within normal limits, has hypokalemia 3.3 and elevated alkaline phosphatase. Total bilirubin is improved to 2.2. Patient continues on clear liquids, is feeling well without nausea or vomiting. She is s/p ERCP today. She is awake, alert and oriented X 3. Pain is adequately controlled. No current appetite but has been advanced to clear liquids per GI. She will have an endoscopy in AM. Also pending possible laparoscopic cholecystectomy with intraoperative cholangiogram by general surgery after. 09/03 blood pressure is 119/67 with a heart rate of 88, afebrile on room air. She continues on IV fluids with LR at 100 mL an hour, antibiotics with Rocephin and Flagyl. She is s/p ERCP with sphincterotomy and ductal stone removal yesterday by Dr. Franco. Her CBC is unremarkable with a WBC of 6, hemoglobin 10 and platelets of 251. CMP shows remarkably elevated alkaline phosphatase, likely secondary to procedure. Albumin is low at 1.7 and lipase is normal at eight. Has mild hypokalemia, no other electrolyte derangement. AST slightly elevated to 131, postop. She is pending a colonoscopy today with Dr. Franco. Blood and urine cultures are negative. She is also being followed by General surgery who is planning for laparoscopic cholecystectomy with intraoperative cholangiogram as well as possible hernia repair. Her pain is well controlled, denies any nausea or vomiting. 09/04 Patient did have a barrium enema today. It was good result per nursing staff discussion with Dr. Franco. He has ordered more bowel prep prior to lap surendra and potential hernia repair with Dr. Davenport. Is planned for surgery with Dr. Davenport on 09/06. CMP is improved with decreased bilirubin and alkaline phosphatase. Patient is feeling ok without current abdominal pain or nausea. REVIEW OF SYSTEMS: 12 point ROS reviewed with patient. Pertinent positives mentioned above. Ot herwise negative. PHYSICAL EXAM: GENERAL: alert, weak, awake oriented x 3 HEENT: EOMI, Sclera non icteric, moist mucosa NECK: Supple, no JVD, trachea midline LUNGS: Clear breath sounds bilaterally. No wheezes HEART: Regular rate and rhythm. Normal S1 and S2, without murmurs ABD: Abdomen soft, no rebound, no guarding EXT: No clubbing cyanosis or edema NEURO: Alert and oriented X3, follows commands Vital Signs (last 8hr) Date Time Temp Pulse Resp B/P (MAP) Pulse Ox O2 Delivery O2 Flow Rate FiO2 09/04/24 12:00 97.5 75 18 118/64 97 Room Air 21 09/04/24 08:00 97.9 86 16 109/62 96 Room Air 21 LABS: Hematology Labs: Test 09/03/24 04:52 Range/Units White Blood Count 7.6 4.8-10.8 K/uL Red Blood Count 3.19 L 4.00-5.50 MIL/uL Hemoglobin 10.6 L 12.0-16.0 g/dL Hematocrit 32.8 L 36-48 % Mean Corpuscular Volume 102.8 H 79-99 fL Mean Corpuscular Hemoglobin 33.2 H 27.0-33.0 pg Mean Corpuscular Hemoglobin Concent 32.3 32.0-36.0 g/dL Red Cell Distribution Width 15.1 11.0-15.5 % Platelet Count 251 130-400 K/uL Mean Platelet Volume 8.7 7.5-10.5 fL Nucleated Red Blood Cells 0.0 0.0-0.19 % Chemistry Labs: Test 09/04/24 11:38 09/04/24 04:37 09/03/24 04:52 Range/Units Whole Blood Glucose 95 70-110 MG/DL Sodium Level 144 136-145 mmol/L Potassium Level 3.4 L 3.5-5.1 mmol/L Chloride Level 108 101-111 mmol/L Carbon Dioxide Level 24 21-32 mmol/L Blood Urea Nitrogen 7 7-18 mg/dL Creatinine 0.7 0.5-1.0 mg/dL Glomerular Filtration Rate Calc 90 >90 mL/min Random Glucose 92 70-105 mg/dL Total Calcium 8.2 L 8.5-10.1 mg/dL Total Bilirubin 2.9 #H 0.2-1.0 mg/dL Aspartate Amino Transf (AST/SGOT) 150 H 10-37 U/L Alanine Aminotransferase (ALT/SGPT) 43 # 12-78 U/L Alkaline Phosphatase 882 *H 50-136 U/L Total Protein 5.0 L 6.0-8.3 g/dL Albumin 1.5 L 3.5-5.0 g/dL Lipase 8 L 16-77 U/L DIAGNOSTICS / RADIOLOGY RESULTS: COLON BARIUM W/WO KUB REASON: WEIGHT LOSS,ANEMIA,LOWER ABD PAIN COMPARISON: None TECHNIQUE: Air-contrast barium enema was performed with fluoroscopic observation. Fluoroscopy time was 3 minutes. Exam was initially attempted however patient to loss the tip. Patient was stating she could not continue, but eventually changed her mind and 23-tipped. Exam then proceeded in the usual fashion. FINDINGS: There is moderate to marked diverticulosis in the sigmoid colon. There is mild diverticulosis of the descending colon. A sending and transverse colon appear normal. There is a small amount of reflux into the appendix and into the a normal-appearing terminal ileum. There are no focal masses. There are no visible polyps. Mucosal pattern appears unremarkable. IMPRESSION: 1. Mild diverticulosis of the descending colon and moderate diverticulosis of the sigmoid colon. 2. Otherwise unremarkable air contrast barium enema. PLAN Follow up with GI recommendation Pending lap surendra and hernia repair by Dr. Davenport Continue antibiotics until procedures are completed Monitor labs CMP in AM Continue on IV antibiotics NEURO: Minimize central acting medications as possible. Maintain fall precautions, adequate lighting during the day PULMONARY: Supplemental 02 as needed. Maintain aspiration precautions at all times IS CARDIOVASCULAR: Follow hemodynamics. Vital signs per facility protocol GI & NUTRITION: Continue with nutritional support. Continue stool softeners and laxatives as needed. KIDNEYS & ELECTROLYTES: Strict monitoring of intake, output and overall fluid balance. Avoid nephrotoxic medications to the extent possible. Medications to be dosed according to renal function. Monitor electrolytes and replace as needed ENDOCRINE: Maintain blood glucose between 100-180 at all times. Hypoglycemia protocol in place INFECTIOUS DISEASE: Trend temperature, WBC and procalcitonin level Follow cultures, deescalate antibiotics as soon as possible. Panculture if new onset fever ONCOLOGY/HEMATOLOGY/COAGULATION: Monitor for s/s of bleeding Monitor hemoglobin, coagulation studies as needed SKIN: Pressure ulcer prevention per facility protocol Specialty mattress ORTHO/REHAB: Continue PT/OT Prophylaxis: Continue GI and DVT prophylaxis Code Status: Full Resuscitation Disposition: SNF referral PT/OT evaluation ATTESTATION BY PHYSICIAN The clinical note has been scribed by Montana Esquivel BSc on my behalf and I attest to the accuracy of the note Casey Noriega MD, MARCUS A PA Sep 04, 2024 15:01
[2024-09-04 16:00] VITALS: BP 121/62; PULSE 81; RESP 18; TEMP 98.2
[2024-09-04] MEDS: LACTULOSE 20 GM/30 ML UDCUP PO ONE (17:55)
[2024-09-04] MEDS: PEG 3350/NA SULF,BICARB,CL/KCL 4000 ML SOLN PO ONE (17:55)
[2024-09-04 19:48] VITALS: O2SAT 98
[2024-09-04 20:00] VITALS: BP 125/60; PULSE 84; RESP 17; TEMP 97.8
[2024-09-05] VITALS (7 sets, daily range): BP systolic 119–134; BP diastolic 55–71; PULSE 76–89; RESP 16–18; TEMP 97.6–97.7; O2SAT 97–98
--- NOTE | 2024-09-05 15:31 | PN ---
[facility] PROGRESS NOTE Date Patient Seen: Sep 05, 2024 Time of Visit: 15:29 Supervising Physician: [Dr. Solorio] Primary Care Physician: Dr. Vu Mcallister Outpatient Specialists: Inpatient Consults: GI- Dr. Franco, Dr. Davenport (Surgery) PROBLEM LIST: Acute cholecystitis and choledocholithiasis with intrahepatic dilatation, pending lap surendra 09/06 s/p ERCP with 9mm ductal stone removed Large Ventral Hernia with concern for strangulated omentum Acute diverticulitis, on antibiotics s/p colonoscopy 09/02/[address] Franco Influenza B positive, treated Constant Intractable abdominal pain with associated nausea and vomiting worsening over three-month with unintentional weight loss Non-obstructive nephrolithiasis Polycystic liver disease Anemia of chronic disease Electrolyte derangement (hyponatremia, hypochloremia) Anorexia with dysgeusia, POA Diabetes mellitus type 2 Chronic constipation History of total abdominal hysterectomy with bilateral salpingo-oophorectomy for complications related to endometriosis. Chronic problem list: History of liver cyst diagnosed in 1998, Hypertension, hyperlipidemia, vitamin-D deficiency, endometriosis, hernia, recent UTI in June 11 INTERVAL HISTORY: Blood pressure is 115/56 with a heart rate of 73, afebrile room air. Patient continues on IV antibiotics with Rocephin and Flagyl. She has refused LR. Her most recent labs are unremarkable with a WBC of 5.1 BNP is grossly within normal limits, has hypokalemia 3.3 and elevated alkaline phosphatase. Total bilirubin is improved to 2.2. Patient continues on clear liquids, is feeling well without nausea or vomiting. She is s/p ERCP today. She is awake, alert and oriented X 3. Pain is adequately controlled. No current appetite but has been advanced to clear liquids per GI. She will have an endoscopy in AM. Also pending possible laparoscopic cholecystectomy with intraoperative cholangiogram by general surgery after. 09/03 blood pressure is 119/67 with a heart rate of 88, afebrile on room air. She continues on IV fluids with LR at 100 mL an hour, antibiotics with Rocephin and Flagyl. She is s/p ERCP with sphincterotomy and ductal stone removal yesterday by Dr. Franco. Her CBC is unremarkable with a WBC of 6, hemoglobin 10 and platelets of 251. CMP shows remarkably elevated alkaline phosphatase, likely secondary to procedure. Albumin is low at 1.7 and lipase is normal at eight. Has mild hypokalemia, no other electrolyte derangement. AST slightly elevated to 131, postop. She is pending a colonoscopy today with Dr. Franco. Blood and urine cultures are negative. She is also being followed by General surgery who is planning for laparoscopic cholecystectomy with intraoperative cholangiogram as well as possible hernia repair. Her pain is well controlled, denies any nausea or vomiting. 09/04 Patient did have a barrium enema today. It was good result per nursing staff discussion with Dr. Franco. He has ordered more bowel prep prior to lap surendra and potential hernia repair with Dr. Davenport. Is planned for surgery with Dr. Davenport on 09/06. CMP is improved with decreased bilirubin and alkaline phosphatase. Patient is feeling ok without current abdominal pain or nausea. 09/05 labs and vitals are reviewed and are within normal limits. WBC is 7. She has completed treatment with Flagyl. Also completed Tamiflu for influenza treatment. Patient continues is NPO today pending laparoscopic cholecystectomy with hernia repair tomorrow by Dr. Davenport. She is comfortable without pain. REVIEW OF SYSTEMS: 12 point ROS reviewed with patient. Pertinent positives mentioned above. Otherwise negative. PHYSICAL EXAM: GENERAL: alert, weak, awake oriented x 3 HEENT: EOMI, Sclera non icteric, moist mucosa NECK: Supple, no JVD, trachea midline LUNGS: Clear breath sounds bilaterally. No wheezes HEART: Regular rate and rhythm. Normal S1 and S2, without murmurs ABD: Abdomen soft, no rebound, no guarding EXT: No clubbing cyanosis or edema NEURO: Alert and oriented X3, follows commands LABS: Chemistry Labs: Test 09/05/24 11:22 09/04/24 04:37 Range/Units Whole Blood Glucose 95 70-110 MG/DL Sodium Level 144 136-145 mmol/L Potassium Level 3.4 L 3.5-5.1 mmol/L Chloride Level 108 101-111 mmol/L Carbon Dioxide Level 24 21-32 mmol/L Blood Urea Nitrogen 7 7-18 mg/dL Creatinine 0.7 0.5-1.0 mg/dL Glomerular Filtration Rate Calc 90 >90 mL/min Random Glucose 92 70-105 mg/dL Total Calcium 8.2 L 8.5-10.1 mg/dL Total Bilirubin 2.9 #H 0.2-1.0 mg/dL Aspartate Amino Transf (AST/SGOT) 150 H 10-37 U/L Alanine Aminotransferase (ALT/SGPT) 43 # 12-78 U/L Alkaline Phosphatase 882 *H 50-136 U/L Total Protein 5.0 L 6.0-8.3 g/dL Albumin 1.5 L 3.5-5.0 g/dL DIAGNOSTICS / RADIOLOGY RESULTS: [Reviewed] PLAN Follow up with GI recommendation Pending lap surendra and hernia repair by Dr. Davenport Continue antibiotics until procedures are completed Monitor labs CMP in AM Continue on IV antibiotics NEURO: Minimize central acting medications as possible. Maintain fall precautions, adequate lighting during the day PULMONARY: Supplemental 02 as needed. Maintain aspiration precautions at all times IS CARDIOVASCULAR: Follow hemodynamics. Vital signs per facility protocol GI & NUTRITION: Continue with nutritional support. Continue stool softeners and laxatives as needed. KIDNEYS & ELECTROLYTES: Strict monitoring of intake, output and overall fluid balance. Avoid nephrotoxic medications to the extent possible. Medications to be dosed according to renal function. Monitor electrolytes and replace as needed ENDOCRINE: Maintain blood glucose between 100-180 at all times. Hypoglycemia protocol in place INFECTIOUS DISEASE: Trend temperature, WBC and procalcitonin level Follow cultures, deescalate antibiotics as soon as possible. Panculture if new onset fever ONCOLOGY/HEMATOLOGY/COAGULATION: Monitor for s/s of bleeding Monitor hemoglobin, coagulation studies as needed SKIN: Pressure ulcer prevention per facility protocol Specialty mattress ORTHO/REHAB: Continue PT/OT Prophylaxis: Continue GI and DVT prophylaxis Code Status: Full Resuscitation Disposition: SNF referral PT/OT evaluation ATTESTATION BY PHYSICIAN The clinical note has been scribed by Montana Esquivel BSc on my behalf and I attest to the accuracy of the note Casey Noriega MD, MARCUS A PA Sep 05, 2024 15:31
[2024-09-06] VITALS (25 sets, daily range): BP systolic 97–134; BP diastolic 53–80; PULSE 65–125; RESP 15–20; TEMP 97.1–98.5; O2SAT 98
[2024-09-06 06:19] LABS: INR 1.16 (0.85-1.15); PROTHROMBIN TIME 12.4 SEC (9.6-11.6)
[2024-09-06] MEDS ORDERED: IOHEXOL-350 50ML VIAL IV ONE (09:29)
[2024-09-06] MEDS ORDERED: BUPIvacaine/PF 0.5% 30ML VIAL ONE (09:49)
[2024-09-06] MEDS ORDERED: dexaMETHasone SOD PHOSPHATE 4 MG/ML 1ML VIAL ONE (10:15)
[2024-09-06] MEDS ORDERED: LIDOCAINE PF 100MG/5ML (2%) SYRINGE 5ML ONE (10:15)
[2024-09-06] MEDS ORDERED: proPOFol 10 MG/ML 20ML VIAL IV ONE (10:16)
[2024-09-06] MEDS ORDERED: NEOSTIGMINE METHYLSULFATE 1MG/ML IV ONE (10:16)
[2024-09-06] MEDS ORDERED: GLYCOPYRROLATE 0.2 MG/ML 5 ML VIAL ONE (10:16)
[2024-09-06] MEDS ORDERED: ondanSETRON 4MG INJ ONE (10:16)
[2024-09-06] MEDS ORDERED: MIDAZOLAM HCL 1 MG/ML 2ML VIAL ONE (10:16)
[2024-09-06] MEDS ORDERED: FENTanyl CITRate PF 50 MCG/1 ML 2ML VIAL ONE ×2 (10:17→12:20)
[2024-09-06] MEDS ORDERED: rocuRONium bROMide 10MG/1ML 5ML VL ONE (10:17)
[2024-09-06] MEDS ORDERED: SUCCINYLCHOLINE CHLORIDE 20 MG/ML 10 ML VIAL ONE (11:34)
[2024-09-06] MEDS ORDERED: ROPivacaine 0.5% 5MG/ML 30ML ONE (13:11)
--- NOTE | 2024-09-06 13:28 | OP ---
Operative Note: DATE OF PROCEDURE: 09/06/24 SURGEON: MARGARET HAMPTON MD ENVIRONMENTAL PROGRAM MANAGER: [KIRSTEN Campa] ANESTHESIA: [General endotracheal anesthesia] ANESTHESIOLOGIST/TOUR ESCORT: [[facility] anesthesia team] PREOPERATIVE DIAGNOSIS: [Gallstones and incarcerated ventral hernia] POSTOPERATIVE DIAGNOSIS: [Same] SYNOPSIS: [Gallstones and incarcerated ventral hernia causing patient discomfort Laparoscopic cholecystectomy with intraoperative cholangiogram Ventral hernia repair with omentectomy #1 critical view obtained, #2 intraoperative cholangiogram with good flow of contrast from cystic duct into common bile duct, right and left hepatic duct, and duodenum noted All sponges and instruments were accounted for at the end the case Patient tolerated the procedure well, there no complications] PROCEDURE: [Laparoscopic cholecystectomy with intraoperative cholangiogram, ventral hernia repair with omentectomy] ESTIMATED BLOOD LOSS: [Less than 20 cc] INDICATIONS: [Gallstones and incarcerated ventral hernia causing patient discomfort] DESCRIPTION OF PROCEDURE: [On day of surgery patient was brought to the operating room. Positioned in the supine position. Preoperative antibiotics were given. Bilateral SCDs were placed. The patient was intubated. Patient then was prepped and draped in the usual fashion. Then a skin incision was made in the right upper quadrant. 5 mm trochars inserted under direct vision. Abdomen was insufflated to 15 mmHg. No injury to omentum or bowel is noted. A 5 mm port was placed in the umbilicus. This incision was just lateral to the incarcerated omentum within the ventral hernia. Once this was done careful attempts were made to reduce the hernia however this was unsuccessful. Due to this fact the decision was made that after the laparoscopic cholecystectomy a ventral hernia repair would be conducted. A 12 mm port was placed in the subxiphoid position. A 5 mm port was placed in the right lateral abdomen. The gallbladder was grasped, elevated, the cystic duct and cystic artery was sequentially dissected. Critical view was obtained. An intraoperative cholangiogram was conducted by placing a clip at the distal end of the cystic duct. Ductotomy was made. A cholangiocatheter was introduced. Good flow of contrast from the cystic duct into common bile duct, right and left hepatic duct, and duodenum was noted. The Cholangiocath was removed. The cystic duct was sequentially clipped and transected. The cystic artery was then sequentially clipped and transected. The gallbladder then was dissected off the gallbladder fossa and removed an Endo Catch bag. Abdomen was irrigated. Appropriate hemostasis was noted. Then all insufflation gas was removed. Ports were removed. Local anesthetic was instilled into the incisions, and the incisions were closed with a subcuticular fashion. Then my attention was turned to the incarcerated ventral hernia. Midline skin incision was made. Dissection down to the hernia sac was done electrocautery. The incarcerated omentum was identified. It appeared we had dense and calcified. Based on this appearance the decision to do an omentectomy was made. Area where there appeared to be healthy omentum coming through the defect was chosen and the omentum was transected with an EnSeal device. The specimen that measured approximately 15 cm in diameter was then woven sent off to the pathologist. Then the edges of the hernia defect were evaluated. It measured approximately 12 cm in a craniocaudal direction. Decision to close the hernia defect primarily was made. The edges were freshened up in the hernia defect was closed with 1. Looped PDS suture in a running fashion. Complete closure of the hernia defect was achieved. The end the subcutaneous tissue was closed with madisyn. All sponges and instruments were accounted for at the end of the case. Patient tolerated the procedure well, there were no complications.] MARGARET HAMPTON MD Sep 06, 2024 13:28
--- NOTE | 2024-09-06 13:37 | HMCIMG ---
CHOLANGIO &/OR PANCRE INTRAOPE REASON: LAP SARAHI W/IOC'S COMPARISON: None TECHNIQUE: 3 surgical spot views are obtained documenting laparoscopic cholecystectomy.. Fluoroscopy time was 0.15 minutes. IMPRESSION: 1. Documentation of intraoperative cholangiogram.
[2024-09-06] MEDS: MEPERIDINE-PF 25 MG/ML SYG ONE ×2 (13:49→13:50)
[2024-09-06] MEDS: acetaMINOPHEN 100 ML ONE (13:49)
[2024-09-06] MEDS: FENTANYL 37.5 MCG/HR TD ONE (15:23)
--- NOTE | 2024-09-06 19:13 | PN ---
[facility] PROGRESS NOTE Date Patient Seen: Sep 06, 2024 Time of Visit: 19:06 Supervising Physician: [Dr. Solorio] Primary Care Physician: Dr. Vu Mcallister Outpatient Specialists: Inpatient Consults: GI- Dr. Franco, Dr. Davenport (Surgery) PROBLEM LIST: Acute cholecystitis and choledocholithiasis with intrahepatic dilatation, s/p ERCP with 9mm ductal stone removed s/p lap surendra 09/06/[address] Davenport Large Ventral Hernia with concern for strangulated omentum s/p ventral hernia repair 09/06/[address] Davenport Acute diverticulitis, on antibiotics s/p colonoscopy 09/02/[address] Franco Influenza B positive, treated Constant Intractable abdominal pain with associated nausea and vomiting worsening over three-month with unintentional weight loss Non-obstructive nephrolithiasis Polycystic liver disease Anemia of chronic disease Electrolyte derangement (hyponatremia, hypochloremia) Anorexia with dysgeusia, POA Diabetes mellitus type 2 Chronic constipation History of total abdominal hysterectomy with bilateral salpingo-oophorectomy for complications related to endometriosis. Chronic problem list: History of liver cyst diagnosed in 1998, Hypertension, hyperlipidemia, vitamin-D deficiency, endometriosis, hernia, recent UTI in June 11 INTERVAL HISTORY: Blood pressure is 115/56 with a heart rate of 73, afebrile room air. Patient continues on IV antibiotics with Rocephin and Flagyl. She has refused LR. Her most recent labs are unremarkable with a WBC of 5.1 BNP is grossly within normal limits, has hypokalemia 3.3 and elevated alkaline phosphatase. Total bilirubin is improved to 2.2. Patient continues on clear liquids, is feeling well without nausea or vomiting. She is s/p ERCP today. She is awake, alert and oriented X 3. Pain is adequately controlled. No current appetite but has been advanced to clear liquids per GI. She will have an endoscopy in AM. Also pending possible laparoscopic cholecystectomy with intraoperative cholangiogram by general surgery after. 09/03 blood pressure is 119/67 with a heart rate of 88, afebrile on room air. She continues on IV fluids with LR at 100 mL an hour, antibiotics with Rocephin and Flagyl. She is s/p ERCP with sphincterotomy and ductal stone removal yesterday by Dr. Franco. Her CBC is unremarkable with a WBC of 6, hemoglobin 10 and platelets of 251. CMP shows remarkably elevated alkaline phosphatase, likely secondary to procedure. Albumin is low at 1.7 and lipase is normal at eight. Has mild hypokalemia, no other electrolyte derangement. AST slightly elevated to 131, postop. She is pending a colonoscopy today with Dr. Franco. Blood and urine cultures are negative. She is also being followed by General surgery who is planning for laparoscopic cholecystectomy with intraoperative cholangiogram as well as possible hernia repair. Her pain is well controlled, denies any nausea or vomiting. 09/04 Patient did have a barrium enema today. It was good result per nursing staff discussion with Dr. Franco. He has ordered more bowel prep prior to lap ch ole and potential hernia repair with Dr. Davenport. Is planned for surgery with Dr. Davenport on 09/06. CMP is improved with decreased bilirubin and alkaline phosphatase. Patient is feeling ok without current abdominal pain or nausea. 09/05 labs and vitals are reviewed and are within normal limits. WBC is 7. She has completed treatment with Flagyl. Also completed Tamiflu for influenza treatment. Patient continues is NPO today pending laparoscopic cholecystectomy with hernia repair tomorrow by Dr. Davenport. She is comfortable without pain. 09/06 Patient is s/p lap surendra and ventral hernia repair by Dr. Davenport. She is currently still sedated. Vitals are reviewed at bedside and are within normal limits. She is in no respiratory distress currently on 2LNC. Blood and urine cultures are negative. WBC has remained WNL. REVIEW OF SYSTEMS: 12 point ROS reviewed with patient. Pertinent positives mentioned above. Otherwise negative. PHYSICAL EXAM: GENERAL: alert, weak, awake oriented x 3 HEENT: EOMI, Sclera non icteric, moist mucosa NECK: Supple, no JVD, trachea midline LUNGS: Clear breath sounds bilaterally. No wheezes HEART: Regular rate and rhythm. Normal S1 and S2, without murmurs ABD: Abdomen soft, no rebound, no guarding EXT: No clubbing cyanosis or edema NEURO: Alert and oriented X3, follows commands Vital Signs (last 8hr) Date Time Temp Pulse Resp B/P (MAP) Pulse Ox O2 Delivery O2 Flow Rate FiO2 09/06/24 18:15 110/58 Nasal Cannula 3.0 09/06/24 17:15 65 104/56 98 Room Air 21 09/06/24 16:15 75 115/61 97 Nasal Cannula 3.0 09/06/24 15:45 76 119/61 97 Nasal Cannula 3.0 09/06/24 15:15 82 111/56 96 Nasal Cannula 3.0 09/06/24 15:00 85 104/53 94 Nasal Cannula 3.0 09/06/24 14:45 90 100/53 91 Nasal Cannula 3.0 09/06/24 14:30 97.2 124 18 115/56 91 Nasal Cannula 3.0 09/06/24 14:28 97.7 98 18 124/66 95 Nasal Cannula 2.0 09/06/24 14:23 102 16 118/64 94 Nasal Cannula 2.0 09/06/24 14:18 95 17 130/70 95 Nasal Cannula 2.0 09/06/24 14:13 96 15 122/58 96 Nasal Cannula 2.0 09/06/24 14:08 101 16 120/63 97 Nasal Cannula 2.0 09/06/24 14:03 105 17 130/70 99 Nasal Cannula 2.0 09/06/24 13:58 107 16 114/63 100 Nonrebreathing Mask 10.0 09/06/24 13:53 111 15 121/65 100 Nonrebreathing Mask 10.0 09/06/24 13:48 125 18 128/64 100 Nonrebreathing Mask 10.0 09/06/24 13:43 112 16 134/74 100 Nonrebreathing Mask 10.0 09/06/24 13:38 125 16 127/80 100 Nonrebreathing Mask 10.0 09/06/24 13:33 97.5 123 18 129/65 100 Nonrebreathing Mask 10.0 LABS: Chemistry Labs: Test 09/06/24 15:25 Range/Units Whole Blood Glucose 100 70-110 MG/DL Coagulation Labs: Test 09/06/24 05:56 Range/Units Prothrombin Time 12.4 H 9.6-11.6 SEC Prothromb Time International Ratio 1.16 H 0.85-1.15 DIAGNOSTICS / RADIOLOGY RESULTS: [ ] PLAN S/P lap surendra and hernia repair 09/[address] Davenport Follow up with GI recommendation Discontinue antibiotics Monitor labs CMP in AM Continue on IV antibiotics NEURO: Minimize central acting medications as possible. Maintain fall precautions, adequate lighting during the day PULMONARY: Supplemental 02 as needed. Maintain aspiration precautions at all times IS CARDIOVASCULAR: Follow hemodynamics. Vital signs per facility protocol GI & NUTRITION: Continue with nutritional support. Continue stool softeners and laxatives as needed. KIDNEYS & ELECTROLYTES: Strict monitoring of intake, output and overall fluid balance. Avoid nephrotoxic medications to the extent possible. Medications to be dosed according to renal function. Monitor electrolytes and replace as needed ENDOCRINE: Maintain blood glucose between 100-180 at all times. Hypoglycemia protocol in place INFECTIOUS DISEASE: Trend temperature, WBC and procalcitonin level Follow cultures, deescalate antibiotics as soon as possible. Panculture if new onset fever ONCOLOGY/HEMATOLOGY/COAGULATION: Monitor for s/s of bleeding Monitor hemoglobin, coagulation studies as needed SKIN: Pressure ulcer prevention per facility protocol Specialty mattress ORTHO/REHAB: Continue PT/OT Prophylaxis: Continue GI and DVT prophylaxis Code Status: Full Resuscitation Disposition: SNF referral PT/OT evaluation ATTESTATION BY PHYSICIAN The clinical note has been scribed by Montana Esquivel BSc on my behalf and I attest to the accuracy of the note Casey Noriega MD, MARCUS A PA Sep 06, 2024 19:12
[2024-09-06] MEDS: doCUSate SODIUM 100 MG CAP PO SCH (19:51)
[2024-09-07] VITALS (7 sets, daily range): BP systolic 102–146; BP diastolic 50–69; PULSE 68–81; RESP 16–19; TEMP 97.1–97.6; O2SAT 95–96
[2024-09-07 05:24] LABS: BASOPHILS # (AUTO) 0.02 K/uL (0.00-0.20); BASOPHILS % (AUTO) 0.2 % (0.0-5.0); HEMATOCRIT 33.6 % (36-48); IMMATURE GRANULOCYTE ABSOLUTE 0.11 K/uL (0-1); LYMPHOCYTES # (AUTO) 1.2 K/uL (1.0-4.8); MEAN CORPUSCULAR HEMOGLOBIN 33.4 pg (27.0-33.0); MEAN CORPUSCULAR HGB CONC 31.5 g/dL (32.0-36.0); MONOCYTES # (AUTO) 0.9 K/uL (0.1-1.0); MONOCYTES % (AUTO) 8.8 % (3.0-13.0); NEUTROPHILS # (AUTO) 7.6 K/uL (1.8-7.7); NEUTROPHILS % (AUTO) 77.9 % (40.0-77.0); PLATELET COUNT (AUTO) 185 K/uL (130-400); RED BLOOD CELL COUNT(AUTO) 3.17 MIL/uL (4.00-5.50); RED CELL DISTRIBUTION WIDTH 17.2 % (11.0-15.5); WHITE BLOOD COUNT (AUTO) 9.7 K/uL (4.8-10.8)
[2024-09-07 05:42] LABS: CREATININE 0.8 mg/dL (0.5-1.0); POTASSIUM 3.7 mmol/L (3.5-5.1)
[2024-09-07 06:01] LABS: PLATELET MORPHOLOGY PLT CLUMPS PRESENT
--- NOTE | 2024-09-07 10:00 | PN ---
[facility] PROGRESS NOTE Date Patient Seen: Sep 07, 2024 Time of Visit: 09:54 Supervising Physician: [Dr. Solorio] Primary Care Physician: Dr. Vu Mcallister Outpatient Specialists: Inpatient Consults: GI- Dr. Franco, Dr. Davenport (Surgery) PROBLEM LIST: Acute cholecystitis and choledocholithiasis with intrahepatic dilatation, s/p ERCP with 9mm ductal stone removed s/p lap surendra 09/06/[address] Davenport Large Ventral Hernia with concern for strangulated omentum s/p ventral hernia repair 09/06/[address] Davenport Acute diverticulitis, on antibiotics s/p colonoscopy 09/02/[address] Franco Influenza B positive, treated Constant Intractable abdominal pain with associated nausea and vomiting worsening over three-month with unintentional weight loss Non-obstructive nephrolithiasis Polycystic liver disease Anemia of chronic disease Electrolyte derangement (hyponatremia, hypochloremia) Anorexia with dysgeusia, POA Diabetes mellitus type 2 Chronic constipation History of total abdominal hysterectomy with bilateral salpingo-oophorectomy for complications related to endometriosis. Chronic problem list: History of liver cyst diagnosed in 1998, Hypertension, hyperlipidemia, vitamin-D deficiency, endometriosis, hernia, recent UTI in June 11 INTERVAL HISTORY: Blood pressure is 115/56 with a heart rate of 73, afebrile room air. Patient continues on IV antibiotics with Rocephin and Flagyl. She has refused LR. Her most recent labs are unremarkable with a WBC of 5.1 BNP is grossly within normal limits, has hypokalemia 3.3 and elevated alkaline phosphatase. Total bilirubin is improved to 2.2. Patient continues on clear liquids, is feeling well without nausea or vomiting. She is s/p ERCP today. She is awake, alert and oriented X 3. Pain is adequately controlled. No current appetite but has been advanced to clear liquids per GI. She will have an endoscopy in AM. Also pending possible laparoscopic cholecystectomy with intraoperative cholangiogram by general surgery after. 09/03 blood pressure is 119/67 with a heart rate of 88, afebrile on room air. She continues on IV fluids with LR at 100 mL an hour, antibiotics with Rocephin and Flagyl. She is s/p ERCP with sphincterotomy and ductal stone removal yesterday by Dr. Franco. Her CBC is unremarkable with a WBC of 6, hemoglobin 10 and platelets of 251. CMP shows remarkably elevated alkaline phosphatase, likely secondary to procedure. Albumin is low at 1.7 and lipase is normal at eight. Has mild hypokalemia, no other electrolyte derangement. AST slightly elevated to 131, postop. She is pending a colonoscopy today with Dr. Franco. Blood and urine cultures are negative. She is also being followed by General surgery who is planning for laparoscopic cholecystectomy with intraoperative cholangiogram as well as possible hernia repair. Her pain is well controlled, denies any nausea or vomiting. 09/04 Patient did have a barrium enema today. It was good result per nursing staff discussion with Dr. Franco. He has ordered more bowel prep prior to lap ch ole and potential hernia repair with Dr. Davenport. Is planned for surgery with Dr. Davenport on 09/06. CMP is improved with decreased bilirubin and alkaline phosphatase. Patient is feeling ok without current abdominal pain or nausea. 09/05 labs and vitals are reviewed and are within normal limits. WBC is 7. She has completed treatment with Flagyl. Also completed Tamiflu for influenza treatment. Patient continues is NPO today pending laparoscopic cholecystectomy with hernia repair tomorrow by Dr. Davenport. She is comfortable without pain. 09/06 Patient is s/p lap surendra and ventral hernia repair by Dr. Davenport. She is currently still sedated. Vitals are reviewed at bedside and are within normal limits. She is in no respiratory distress currently on 2LNC. Blood and urine cultures are negative. WBC has remained WNL. 09/07 patient continuing to significant weakness to bilateral lower extremities. She has been working with physical therapy, pending further recommendation for SNF versus DC home with home health. She is status post laparoscopic cholecystectomy and ventral hernia repair yesterday by Dr. Johnson. Has advanced to clear diet today, there is tolerating well without nausea vomiting or abdominal pain. Does admit mild abdominal discomfort. Her WBCs have remained within normal limits currently at nine, hemoglobin 10. Blood and urine culture are negative. She has not yet passed any gas, no bowel movement yet. She is off of antibiotics. REVIEW OF SYSTEMS: 12 point ROS reviewed with patient. Pertinent positives mentioned above. Otherwise negative. PHYSICAL EXAM: GENERAL: alert, weak, awake oriented x 3 HEENT: EOMI, Sclera non icteric, moist mucosa NECK: Supple, no JVD, trachea midline LUNGS: Clear breath sounds bilaterally. No wheezes HEART: Regular rate and rhythm. Normal S1 and S2, without murmurs ABD: Abdomen soft, no rebound, no guarding EXT: No clubbing cyanosis or edema NEURO: Alert and oriented X3, follows commands Vital Signs (last 8hr) Date Time Temp Pulse Resp B/P (MAP) Pulse Ox O2 Delivery O2 Flow Rate FiO2 09/07/24 08:00 97.3 68 16 130/60 95 Room Air 09/07/24 04:00 97.5 81 19 102/50 98 Nasal Cannula 2.0 LABS: Hematology Labs: Test 09/07/24 05:20 Range/Units White Blood Count 9.7 4.8-10.8 K/uL Red Blood Count 3.17 L 4.00-5.50 MIL/uL Hemoglobin 10.6 L 12.0-16.0 g/dL Hematocrit 33.6 L 36-48 % Mean Corpuscular Volume 106.0 H 79-99 fL Mean Corpuscular Hemoglobin 33.4 H 27.0-33.0 pg Mean Corpuscular Hemoglobin Concent 31.5 L 32.0-36.0 g/dL Red Cell Distribution Width 17.2 H 11.0-15.5 % Platelet Count 185 130-400 K/uL Mean Platelet Volume 9.2 7.5-10.5 fL Immature Granulocyte % (Auto) 1.1 H 0-1 % Neutrophils (%) (Auto) 77.9 H 40.0-77.0 % Lymphocytes (%) (Auto) 12.0 L 21.0-51.0 % Monocytes (%) (Auto) 8.8 3.0-13.0 % Eosinophils (%) (Auto) 0.0 0.0-8.0 % Basophils (%) (Auto) 0.2 0.0-5.0 % Neutrophils # (Auto) 7.6 1.8-7.7 K/uL Lymphocytes # (Auto) 1.2 1.0-4.8 K/uL Monocytes # (Auto) 0.9 0.1-1.0 K/uL Eosinophils # (Auto) 0.00 0.00-0.70 K/uL Basophils # (Auto) 0.02 0.00-0.20 K/uL Absolute Immature Granulocyte (auto 0.11 0-1 K/uL Nucleated Red Blood Cells 0.0 0.0-0.19 % Platelet Morphology PLT CLUMPS PRESENT Red Blood Cell Morphology ANISO 1+ Chemistry Labs: Test 09/07/24 05:26 09/07/24 05:20 Range/Units Whole Blood Glucose 109 70-110 MG/DL Sodium Level 143 136-145 mmol/L Potassium Level 3.7 3.5-5.1 mmol/L Chloride Level 106 101-111 mmol/L Carbon Dioxide Level 21 21-32 mmol/L Blood Urea Nitrogen 12 7-18 mg/dL Creatinine 0.8 0.5-1.0 mg/dL Glomerular Filtration Rate Calc 76 >90 mL/min Random Glucose 117 H 70-105 mg/dL Total Calcium 8.6 8.5-10.1 mg/dL Coagulation Labs: Test 09/06/24 05:56 Range/Units Prothrombin Time 12.4 H 9.6-11.6 SEC Prothromb Time International Ratio 1.16 H 0.85-1.15 DIAGNOSTICS / RADIOLOGY RESULTS: [Reviewed] PLAN S/P lap surendra and hernia repair 09/[address] Davenport Advance diet as tolerated Up out of bed to chair Follow up with GI recommendation Discontinue antibiotics Monitor labs CMP in AM Pending PT for DC recommendation NEURO: Minimize central acting medications as possible. Maintain fall precautions, adequate lighting during the day PULMONARY: Supplemental 02 as needed. Maintain aspiration precautions at all times IS CARDIOVASCULAR: Follow hemodynamics. Vital signs per facility protocol GI & NUTRITION: Continue with nutritional support. Continue stool softeners and laxatives as needed. KIDNEYS & ELECTROLYTES: Strict monitoring of intake, output and overall fluid balance. Avoid nephrotoxic medications to the extent possible. Medications to be dosed according to renal function. Monitor electrolytes and replace as needed ENDOCRINE: Maintain blood glucose between 100-180 at all times. Hypoglycemia protocol in place INFECTIOUS DISEASE: Trend temperature, WBC and procalcitonin level Follow cultures, deescalate antibiotics as soon as possible. Panculture if new onset fever ONCOLOGY/HEMATOLOGY/COAGULATION: Monitor for s/s of bleeding Monitor hemoglobin, coagulation studies as needed SKIN: Pressure ulcer prevention per facility protocol Specialty mattress ORTHO/REHAB: Continue PT/OT Prophylaxis: Continue GI and DVT prophylaxis Code Status: Full Resuscitation Disposition: SNF referral PT/OT evaluation ATTESTATION BY PHYSICIAN I reviewed the documentation, medical decision making, and treatment plan as noted by the mid-level provider above. I agree with the findings and plan of care. Darwin Solorio MD, MARCUS A PA Sep 07, 2024 10:00
--- NOTE | 2024-09-07 10:00 | NUR ---
cm note PER VI atkins at [facility], states pt is denied. can resubmit later if new skilled need or new dx.
[2024-09-07] MEDS ORDERED: acetaMINOPHEN 325 MG TAB PO PRN (16:00)
--- NOTE | 2024-09-07 19:12 | PN ---
PROGRESS NOTE Date of Service: Sep 07, 2024 Time of Service: 19:10 SUBJECTIVE: [ Patient is status post laparoscopic cholecystectomy and ventral hernia repair. Patient tolerated clears. Pain is controlled all pain meds..] REVIEW OF SYSTEMS PHYSICAL EXAM Awake, alert, oriented x3 Unlabored Regular rate and rhythm Abdomen soft, appropriately tender, nondistended, incisions dressed Vital Signs (last 8hr) Date Time Temp Pulse Resp B/P (MAP) Pulse Ox O2 Delivery O2 Flow Rate FiO2 09/07/24 16:00 97.5 78 16 134/63 93 Room Air 09/07/24 12:00 97.5 73 16 121/55 94 Room Air LABS: Laboratory: Test 09/07/24 16:11 09/07/24 05:20 09/06/24 05:56 Range/Units Whole Blood Glucose 128 H 70-110 MG/DL White Blood Count 9.7 4.8-10.8 K/uL Red Blood Count 3.17 L 4.00-5.50 MIL/uL Hemoglobin 10.6 L 12.0-16.0 g/dL Hematocrit 33.6 L 36-48 % Mean Corpuscular Volume 106.0 H 79-99 fL Mean Corpuscular Hemoglobin 33.4 H 27.0-33.0 pg Mean Corpuscular Hemoglobin Concent 31.5 L 32.0-36.0 g/dL Red Cell Distribution Width 17.2 H 11.0-15.5 % Platelet Count 185 130-400 K/uL Mean Platelet Volume 9.2 7.5-10.5 fL Immature Granulocyte % (Auto) 1.1 H 0-1 % Neutrophils (%) (Auto) 77.9 H 40.0-77.0 % Lymphocytes (%) (Auto) 12.0 L 21.0-51.0 % Monocytes (%) (Auto) 8.8 3.0-13.0 % Eosinophils (%) (Auto) 0.0 0.0-8.0 % Basophils (%) (Auto) 0.2 0.0-5.0 % Neutrophils # (Auto) 7.6 1.8-7.7 K/uL Lymphocytes # (Auto) 1.2 1.0-4.8 K/uL Monocytes # (Auto) 0.9 0.1-1.0 K/uL Eosinophils # (Auto) 0.00 0.00-0.70 K/uL Basophils # (Auto) 0.02 0.00-0.20 K/uL Absolute Immature Granulocyte (auto 0.11 0-1 K/uL Nucleated Red Blood Cells 0.0 0.0-0.19 % Platelet Morphology PLT CLUMPS PRESENT Red Blood Cell Morphology ANISO 1+ Sodium Level 143 136-145 mmol/L Potassium Level 3.7 3.5-5.1 mmol/L Chloride Level 106 101-111 mmol/L Carbon Dioxide Level 21 21-32 mmol/L Blood Urea Nitrogen 12 7-18 mg/dL Creatinine 0.8 0.5-1.0 mg/dL Glomerular Filtration Rate Calc 76 >90 mL/min Random Glucose 117 H 70-105 mg/dL Total Calcium 8.6 8.5-10.1 mg/dL Prothrombin Time 12.4 H 9.6-11.6 SEC Prothromb Time International Ratio 1.16 H 0.85-1.15 DIAGNOSTICS / RADIOLOGY: [ ] ASSESSMENT: [ Status post laparoscopic cholecystectomy and ventral hernia repair ] PLAN: [ Continue diet. Ambulate. Pulmonary toilet. Patient can be discharged home on a pain is tolerated just oral pain meds. Patient to follow up with me in two weeks.. ] MARGARET HAMPTON MD Sep 07, 2024 19:12
[2024-09-08] MEDS: traMADol HCL 50 MG TABLET PO PRN (02:59)
[2024-09-08 03:54] VITALS: BP 154/61; PULSE 78; RESP 16; TEMP 97.4
[2024-09-08 08:00] VITALS: BP 148/67; PULSE 84; RESP 18; TEMP 97.5
[2024-09-08 08:08] VITALS: O2SAT 92
[2024-09-08 10:30] VITALS: PULSE 89; PULSE 96; RESP 18; RESP 20; O2SAT 94; O2SAT 95
--- NOTE | 2024-09-08 11:12 | PN ---
[facility] PROGRESS NOTE Date Patient Seen: Sep 08, 2024 Time of Visit: 11:06 Supervising Physician: [Dr. Singer] Primary Care Physician: Dr. Vu Mcallister Outpatient Specialists: Inpatient Consults: GI- Dr. Franco, Dr. Davenport (Surgery) PROBLEM LIST: Acute cholecystitis and choledocholithiasis with intrahepatic dilatation, s/p ERCP with 9mm ductal stone removed s/p lap surendra 09/06/[address] Davenport Large Ventral Hernia with concern for strangulated omentum s/p ventral hernia repair 09/06/[address] Davenport Acute diverticulitis, on antibiotics s/p colonoscopy 09/02/[address] Franco Influenza B positive, treated Constant Intractable abdominal pain with associated nausea and vomiting worsening over three-month with unintentional weight loss Non-obstructive nephrolithiasis Polycystic liver disease Anemia of chronic disease Electrolyte derangement (hyponatremia, hypochloremia) Anorexia with dysgeusia, POA Diabetes mellitus type 2 Chronic constipation History of total abdominal hysterectomy with bilateral salpingo-oophorectomy for complications related to endometriosis. Chronic problem list: History of liver cyst diagnosed in 1998, Hypertension, hyperlipidemia, vitamin-D deficiency, endometriosis, hernia, recent UTI in June 11 INTERVAL HISTORY: Blood pressure is 115/56 with a heart rate of 73, afebrile room air. Patient continues on IV antibiotics with Rocephin and Flagyl. She has refused LR. Her most recent labs are unremarkable with a WBC of 5.1 BNP is grossly within normal limits, has hypokalemia 3.3 and elevated alkaline phosphatase. Total bilirubin is improved to 2.2. Patient continues on clear liquids, is feeling well without nausea or vomiting. She is s/p ERCP today. She is awake, alert and oriented X 3. Pain is adequately controlled. No current appetite but has been advanced to clear liquids per GI. She will have an endoscopy in AM. Also pending possible l aparoscopic cholecystectomy with intraoperative cholangiogram by general surgery after. 09/03 blood pressure is 119/67 with a heart rate of 88, afebrile on room air. She continues on IV fluids with LR at 100 mL an hour, antibiotics with Rocephin and Flagyl. She is s/p ERCP with sphincterotomy and ductal stone removal yesterday by Dr. Franco. Her CBC is unremarkable with a WBC of 6, hemoglobin 10 and platelets of 251. CMP shows remarkably elevated alkaline phosphatase, likely secondary to procedure. Albumin is low at 1.7 and lipase is normal at eight. Has mild hypokalemia, no other electrolyte derangement. AST slightly elevated to 131, postop. She is pending a colonoscopy today with Dr. Franco. Blood and urine cultures are negative. She is also being followed by General surgery who is planning for laparoscopic cholecystectomy with intraoperative cholangiogram as well as possible hernia repair. Her pain is well controlled, denies any nausea or vomiting. 09/04 Patient did have a barrium enema today. It was good result per nursing staff discussion with Dr. Franco. He has ordered more bowel prep prior to lap surendra and potential hernia repair with Dr. Davenport. Is planned for surgery with Dr. Davenport on 09/06. CMP is improved with decreased bilirubin and alkaline phosphatase. Patient is feeling ok without current abdominal pain or nausea. 09/05 labs and vitals are reviewed and are within normal limits. WBC is 7. She has completed treatment with Flagyl. Also completed Tamiflu for influenza treatment. Patient continues is NPO today pending laparoscopic cholecystectomy with hernia repair tomorrow by Dr. Davenport. She is comfortable without pain. 09/06 Patient is s/p lap surendra and ventral hernia repair by Dr. Davenport. She is currently still sedated. Vitals are reviewed at bedside and are within normal limits. She is in no respiratory distress currently on 2LNC. Blood and urine cultures are negative. WBC has remained WNL. 09/07 patient continuing to significant weakness to bilateral lower extremities. She has been working with physical therapy, pending further recommendation for SNF versus DC home with home health. She is status post laparoscopic cholecystectomy and ventral hernia repair yesterday by Dr. Johnson. Has advanced to clear diet today, there is tolerating well without nausea vomiting or abdominal pain. Does admit mild abdominal discomfort. Her WBCs have remained within normal limits currently at nine, hemoglobin 10. Blood and urine culture are negative. She has not yet passed any gas, no bowel movement yet. She is off of antibiotics. 09/08 Pressure is 148/67 with a heart rate of 84, afebrile on room air. Patient is status post laparoscopic cholecystectomy as well as abdominal ventral hernia repair. Her WBC remains within normal limits at nine, hemoglobin 10, platelets 185. Most recent BNP is unremarkable, without electrolyte deficiency with a c reatinine of 0.8. Patient has completed treatment with Tamiflu. Blood and urine cultures are negative. She has been off of antibiotics. Her pain is well-controlled, she continues with moderate to severe weakness. Does have swelling to upper and lower extremities today about 2+ to upper and 3+2 lower. She is up out of chair to bed, has been walking with PT as tolerated. She was recommended to sniff for continued physical therapy however was denied. She is advancing diet per General surgery, tolerating well. Denies any nausea, vomiting or abdominal pain beside as expected from surgery. REVIEW OF SYSTEMS: 12 point ROS reviewed with patient. Pertinent positives mentioned above. Otherwise negative. PHYSICAL EXAM: GENERAL: alert, weak, awake oriented x 3 HEENT: EOMI, Sclera non icteric, moist mucosa NECK: Supple, no JVD, trachea midline LUNGS: Clear breath sounds bilaterally. No wheezes HEART: Regular rate and rhythm. Normal S1 and S2, without murmurs ABD: Abdomen soft, no rebound, no guarding EXT: No clubbing cyanosis or edema NEURO: Alert and oriented X3, follows commands Vital Signs (last 8hr) Date Time Temp Pulse Resp B/P (MAP) Pulse Ox O2 Delivery O2 Flow Rate FiO2 09/08/24 10:30 89 18 21 96 20 21 09/08/24 08:00 97.5 84 18 148/67 92 Room Air 09/08/24 03:54 97.3 78 16 154/61 93 Room Air LABS: Hematology Labs: Test 09/07/24 05:20 Range/Units White Blood Count 9.7 4.8-10.8 K/uL Red Blood Count 3.17 L 4.00-5.50 MIL/uL Hemoglobin 10.6 L 12.0-16.0 g/dL Hematocrit 33.6 L 36-48 % Mean Corpuscular Volume 106.0 H 79-99 fL Mean Corpuscular Hemoglobin 33.4 H 27.0-33.0 pg Mean Corpuscular Hemoglobin Concent 31.5 L 32.0-36.0 g/dL Red Cell Distribution Width 17.2 H 11.0-15.5 % Platelet Count 185 130-400 K/uL Mean Platelet Volume 9.2 7.5-10.5 fL Immature Granulocyte % (Auto) 1.1 H 0-1 % Neutrophils (%) (Auto) 77.9 H 40.0-77.0 % Lymphocytes (%) (Auto) 12.0 L 21.0-51.0 % Monocytes (%) (Auto) 8.8 3.0-13.0 % Eosinophils (%) (Auto) 0.0 0.0-8.0 % Basophils (%) (Auto) 0.2 0.0-5.0 % Neutrophils # (Auto) 7.6 1.8-7.7 K/uL Lymphocytes # (Auto) 1.2 1.0-4.8 K/uL Monocytes # (Auto) 0.9 0.1-1.0 K/uL Eosinophils # (Auto) 0.00 0.00-0.70 K/uL Basophils # (Auto) 0.02 0.00-0.20 K/uL Absolute Immature Granulocyte (auto 0.11 0-1 K/uL Nucleated Red Blood Cells 0.0 0.0-0.19 % Platelet Morphology PLT CLUMPS PRESENT Red Blood Cell Morphology ANISO 1+ Chemistry Labs: Test 09/08/24 05:08 09/07/24 05:20 Range/Units Whole Blood Glucose 110 70-110 MG/DL Sodium Level 143 136-145 mmol/L Potassium Level 3.7 3.5-5.1 mmol/L Chloride Level 106 101-111 mmol/L Carbon Dioxide Level 21 21-32 mmol/L Blood Urea Nitrogen 12 7-18 mg/dL Creatinine 0.8 0.5-1.0 mg/dL Glomerular Filtration Rate Calc 76 >90 mL/min Random Glucose 117 H 70-105 mg/dL Total Calcium 8.6 8.5-10.1 mg/dL DIAGNOSTICS / RADIOLOGY RESULTS: [Reviewed] PLAN S/P lap surendra and hernia repair 09/[address] Davenport Advance diet as tolerated Up out of bed to chair Start low dose lasix 20mg QD Follow up with GI recommendation Discontinue antibiotics Monitor labs CMP in AM Continue physical therapy NEURO: Minimize central acting medications as possible. Maintain fall precautions, adequate lighting during the day PULMONARY: Supplemental 02 as needed. Maintain aspiration precautions at all times IS CARDIOVASCULAR: Follow hemodynamics. Vital signs per facility protocol GI & NUTRITION: Continue with nutritional support. Continue stool softeners and laxatives as needed. KIDNEYS & ELECTROLYTES: Strict monitoring of intake, output and overall fluid balance. Avoid nephrotoxic medications to the extent possible. Medications to be dosed according to renal function. Monitor electrolytes and replace as needed ENDOCRINE: Maintain blood glucose between 100-180 at all times. Hypoglycemia protocol in place INFECTIOUS DISEASE: Trend temperature, WBC and procalcitonin level Follow cultures, deescalate antibiotics as soon as possible. Panculture if new onset fever ONCOLOGY/HEMATOLOGY/COAGULATION: Monitor for s/s of bleeding Monitor hemoglobin, coagulation studies as needed SKIN: Pressure ulcer prevention per facility protocol Specialty mattress ORTHO/REHAB: Continue PT/OT Prophylaxis: Continue GI and DVT prophylaxis Code Status: Full Resuscitation Disposition: SNF referral PT/OT evaluation ATTESTATION BY PHYSICIAN I reviewed the documentation, medical decision making, and treatment plan as noted by the mid-level provider above. I agree with the findings and plan of care. Darwin Solorio MD, MARCUS A PA Sep 08, 2024 11:12
[2024-09-08] MEDS: furoSEMIDE 20 MG TABLET PO SCH (11:43)
[2024-09-08 12:00] VITALS: BP 153/70; PULSE 89; RESP 18; TEMP 97.8
[2024-09-08 16:00] VITALS: BP 119/62; PULSE 91; RESP 20; TEMP 98
[2024-09-08] MEDS ORDERED: FURO20TA6 PO (17:10)
[2024-09-08] MEDS ORDERED: doCUSate SODIUM 100 MG CAP PO (17:10)
[2024-09-08] MEDS ORDERED: TRAM50TA4 PO (17:10)
--- NOTE | 2024-09-08 17:11 | DS ---
[facility] DISCHARGE SUMMARY Date Patient Seen: Sep 08, 2024 Time of Visit: 17:11 Supervising Physician: [Dr. Singer] Primary Care Physician: Dr. Vu Mcallister Outpatient Specialists: Inpatient Consults: GI- Dr. Franco, Dr. Davenport (Surgery) PROBLEM LIST: Acute cholecystitis and choledocholithiasis with intrahepatic dilatation, s/p ERCP with 9mm ductal stone removed s/p lap surendra 09/06/[address] Davenport Large Ventral Hernia with concern for strangulated omentum s/p ventral hernia repair with omentectomy 09/06/[address] Davenport Acute diverticulitis, on antibiotics s/p colonoscopy 09/02/[address] Franco Influenza B positive, treated Constant Intractable abdominal pain with associated nausea and vomiting worsening over three-month with unintentional weight loss Non-obstructive nephrolithiasis Polycystic liver disease Anemia of chronic disease Electrolyte derangement (hyponatremia, hypochloremia) Anorexia with dysgeusia, POA Diabetes mellitus type 2 Chronic constipation History of total abdominal hysterectomy with bilateral salpingo-oophorectomy for complications related to endometriosis. Chronic problem list: History of liver cyst diagnosed in 1998, Hypertension, hyperlipidemia, vitamin-D deficiency, endometriosis, hernia, recent UTI in June 11 HOSPITAL COURSE: HPI (per admitting provider) Ms. Dutton is a 74-year-old female who presented [place] [facility] [place] with the diagnosis of acute liver failure from the clinic. 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 She did blood work which showed the elevated an alkaline phosphatase of 921, total bilirubin 4.0, AST 45, ALT 36. The patient reported that since April she has been nauseated, complains of mid abdominal pain, and food intolerance. Patient reports that she been drinking the boost drinks due to anorexia, and she has lost 35 lb since April. Patient was initiated on IV fluids and antibiotics. She was found to be flu B positive and completed tamiflu for the same. She underwent ERCP 09/02 with 9mm ductal stone removal. She subsequently underwent endoscopy and colonoscopy without any acute findings. She was then recommended for laparoscopic cholecystectomy. Patient had a laparoscopic cholecystectomy and simultaneously had an abdominal hernia repair on 09/06. Patient was able to gradually advance diet and tolerated well. She denied any nausea, vomiting or abdominal pain. Was followed by general surgery and was cleared for discharge. Patient was weak given multiple procedures and was recommended for SNF upon discharge for continued physical therapy but was denied by her insurance. Patient's at bedside stated he would help care for the patient at home. She was able to ambulate with assistance. The patient was treated for the following problems: ACTIVE PROBLEM LIST FOR THE HOSPITALIZATION: Acute cholecystitis and choledocholithiasis with intrahepatic dilatation, s/p ERCP with 9mm ductal stone removed s/p lap surendra 09/06/[address] Davenport Large Ventral Hernia with concern for strangulated omentum s/p ventral hernia repair with omentectomy 09/06/[address] Davenport Acute diverticulitis, on antibiotics s/p colonoscopy 09/02/[address] Franco Influenza B positive, treated Constant Intractable abdominal pain with associated nausea and vomiting worsening over three-month with unintentional weight loss Non-obstructive nephrolithiasis Polycystic liver disease Anemia of chronic disease Electrolyte derangement (hyponatremia, hypochloremia) Anorexia with dysgeusia, POA Diabetes mellitus type 2 Chronic constipation History of total abdominal hysterectomy with bilateral salpingo-oophorectomy for complications related to endometriosis. Chronic problem list: History of liver cyst diagnosed in 1998, Hypertension, hyperlipidemia, vitamin-D deficiency, endometriosis, hernia, recent UTI in CHRONIC PROBLEMS: continue previous management per PCP unless otherwise indicated PALLETIZER FINDINGS/RECOMMENDATIONS: [Follow up with GI for endoscopy/colonoscopy results. Follow up with general surgery for staple removal and routine evaluation.] PROCEDURES: DATE OF PROCEDURE: 09/06/24 SURGEON: MARGARET DAVENPORT MD PREOPERATIVE DIAGNOSIS: [Gallstones and incarcerated ventral hernia] SYNOPSIS: [Gallstones and incarcerated ventral hernia causing patient discomfort Laparoscopic cholecystectomy with intraoperative cholangiogram Ventral hernia repair with omentectomy #1 critical view obtained, #2 intraoperative cholangiogram with good flow of contrast from cystic duct into common bile duct, right and left hepatic duct, and duodenum noted All sponges and instruments were accounted for at the end the case Patient tolerated the procedure well, there no complications] PROCEDURE: [Laparoscopic cholecystectomy with intraoperative cholangiogram, ventral hernia repair with omentectomy] DISCHARGE MEDICATIONS: Pt hemodynamically stable and afebrile at time of discharge. PCP notified of patients admission, hospital course and discharge. New Medications: [doCUSate SODIUM 100 MG CAP] () 100 MG CAPSULE 100 MG PO BID, #30 0 Refills Furosemide (Lasix 20Mg Tab) 20 Mg Tablet 20 MG PO DAILY for 5 Days, #5 TAB Tramadol Hcl (Tramadol HCl) 50 Mg Tablet 50 MG PO Q6HPRN PRN for MODERATE PAIN (4-6), #20 TAB PHYSICAL EXAM: GENERAL: alert, weak, awake oriented x 3 HEENT: EOMI, Sclera non icteric, moist mucosa NECK: Supple, no JVD, trachea midline LUNGS: Clear breath sounds bilaterally. No wheezes HEART: Regular rate and rhythm. Normal S1 and S2, without murmurs ABD: Abdomen soft, no rebound, no guarding EXT: No clubbing cyanosis or edema NEURO: Alert and oriented X3, follows commands FOLLOW-UP: Follow-up with PCP in 2-3 days for reevaluation and other needs such as home physical therapy. Follow up with GI for endoscopy/colonoscopy results. Follow up with general surgery for staple removal and routine evaluation. Patient completed IV antibiotics while admitted. No antibiotics indicated upon discharge. RECOMMENDATIONS: See Discharge Instructions This case was seen and discussed with my supervising physician. More than 30 minutes spent on discharge process, including evaluation of the patient, discussion with nursing staff, medication reconciliation and follow-up appointments DEBRA GALLAGHER Sep 08, 2024 17:11
--- NOTE | 2024-09-08 17:44 | NUR ---
DISCHARGE PIV DC'D PRESCRIPTION GIVEN TO PATIENT DISCHARGE INSTRUCTIONS REVIEWED WITH BOTH THE PATIENT AND SPOUSE ALL QUESTIONS ANSWERED PRIOR TO DISCHARGE
== END 2024-09-08 17:45 | disposition home or self-care (01) | DRG 417 ==
LOC: EDH 18:54 → EDHIP 20:21 → 3DH 22:38
PROVIDERS: ADMIT Internal Medicine; ATTEND Internal Medicine
PROC: BF121ZZ Fluoroscopy of Gallbladder using Low Osmolar Contrast (ICD-10-PCS; 2024-09-06)
PROC: 0WQF4ZZ Repair Abdominal Wall, Percutaneous Endoscopic Approach (ICD-10-PCS; 2024-09-06)
PROC: 0FT44ZZ Resection of Gallbladder, Percutaneous Endoscopic Approach (ICD-10-PCS; principal; 2024-09-06 12:00)
PROC: 0DBU4ZZ Excision of Omentum, Percutaneous Endoscopic Approach (ICD-10-PCS; 2024-09-06 12:00)
DX: K80.63 Calculus of gallbladder and bile duct with acute cholecystitis with obstruction (principal); K72.00 Acute and subacute hepatic failure without coma; R65.11 Systemic inflammatory response syndrome (SIRS) of non-infectious origin with acute organ dysfunction; K57.32 Diverticulitis of large intestine without perforation or abscess without bleeding; Q44.6 Cystic disease of liver; K43.6 Other and unspecified ventral hernia with obstruction, without gangrene; R74.8 Abnormal levels of other serum enzymes; R63.0 Anorexia; E55.9 Vitamin D deficiency, unspecified; Z20.822 Contact with and (suspected) exposure to COVID-19; E11.65 Type 2 diabetes mellitus with hyperglycemia; D63.8 Anemia in other chronic diseases classified elsewhere; R80.9 Proteinuria, unspecified; E87.8 Other disorders of electrolyte and fluid balance, not elsewhere classified; K59.09 Other constipation; R43.2 Parageusia; R74.01 Elevation of levels of liver transaminase levels; J10.1 Influenza due to other identified influenza virus with other respiratory manifestations; K43.2 Incisional hernia without obstruction or gangrene; N20.0 Calculus of kidney; D75.839 Thrombocytosis, unspecified; K82.8 Other specified diseases of gallbladder; I10 Essential (primary) hypertension; E78.5 Hyperlipidemia, unspecified; K76.89 Other specified diseases of liver; K22.2 Esophageal obstruction; E87.6 Hypokalemia; R79.89 Other specified abnormal findings of blood chemistry; R16.0 Hepatomegaly, not elsewhere classified; Z87.440 Personal history of urinary (tract) infections; Z90.710 Acquired absence of both cervix and uterus
CPT/HCPCS: 36415; 43237; 43249; 43262; 43264; 45378; 71045; 74018; 74178; 74183; 74270; 74300; 74330; 76705; 78226; 80048; 80053; 80074; 80076; 81001; 82150; 82306; 82607; 82948; 83520; 83605; 83690; 83735; 84100; 84443; 85025; 85027; 85610; 85651; 86038; 86200; 86215; 86235; 86255; 86431; 86665; 86682; 86753; 86850; 86900; 86901; 86923; 87040; 87086; 87635; 87804; 87880; 94760; A4606; A9537; C1726; C1758; C1769; C1773; G0378; J0330; J0696; J1100; J1650; J2003; J2175; J2250; J2405; J2704; J2710; J2795; J3010; J3475; J3480; J3490; J7030; Q9967; A4215; A4216; A4221; A4222; A4223; A4600; A4620; A4649; A4657; A4663; A4930; A7002; A9575; J0665

== ENCOUNTER 2024-10-01 17:54 | Inpatient (IN) | payer MEDICARE ==
[~2024-10-01] VITALS: Ht 167.6 cm; Wt 56.7 kg
[~2024-10-01 17:54] MED LIST: FURO20TA6 PO; TRAM50TA4 PO; doCUSate SODIUM 100 MG CAP PO
--- NOTE | 2024-10-01 18:50 | NUR ---
DR. BETTENCOURT ON THE LINE, WAS ADVISED THAT PT IS CURRENTLY NOT IN ROOM AND THERE ARE NO ORDERS AT THIS TIME. WAS INFORMED HE WILL BE UPDATED SOON THERE ARE RESULTS TO REPORT.
--- NOTE | 2024-10-01 18:58 | NUR ---
WESTLEY ROLDAN WAS CALLED, STATES HE WANTS A STAT MRCP AND WILL NEED THE PT TO BE NPO FOR AT LEAST 8 HRS.
--- NOTE | 2024-10-01 18:59 | NUR ---
PT REPORTS LAST ORAL INTAKE AT 10 AM TODAY
[2024-10-01] MEDS: 0.9%NACL 1000ML 1,000 ML IV SCH (19:00)
[2024-10-01 19:05] VITALS: BP 148/80; PULSE 86; RESP 18
--- NOTE | 2024-10-01 19:10 | HP ---
[facility] HISTORY & PHYSICAL Date Patient Seen: Oct 01, 2024 Time of Visit: 2029 Supervising Physician: [Dr. Peña Sy ] Primary Care Physician: [Dr. Mcallister ] Outpatient Specialists: [ ] Inpatient Consults: [GI: Dr. 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 Davenport Large Ventral Hernia with concern for strangulated omentum s/p ventral hernia repair with omentectomy 09/06/[address] Davenport Acute diverticulitis, s/p antibiotics and colonoscopy 09/02/[address] Franco Influenza B positive, recent Recent HX of Intractable abdominal pain with associated nausea and vomiting worsening over three-month with unintentional weight loss HX of non-obstructive nephrolithiasis Polycystic liver disease Anemia of chronic disease Recent electrolyte derangement (hyponatremia, hypochloremia) Anorexia with anosmia and ageusia, resolved Diabetes mellitus type 2 Chronic constipation History of total abdominal hysterectomy with bilateral salpingo-oophorectomy for complications related to endometriosis. History of liver cyst diagnosed in 1998 Vitamin-D deficiency Endometriosis Abdominal hernia Recent UTI in May, PLAN: -Admit to [facility] -Keep patient NPO -IV fluids for hydration -Obtain STAT admit labs -Obtain STAT RUQ US -Obtain MRCP in am -Obtain follow-up LFTs, direct and indirect bilirubin, Alpha-1 antitrypsin and GGT -Obtain CT AP -Rule-out component of malignancy by obtaining tumor markers: AFP, CEA, CA 19, CA125 -Consult motorcoach operator in am -Consult Dr. Franco, pending eval and recx -Patient may need referral for spa director if condition progresses HPI: Per discharge summary on 09/08/2024: " Ms. Dutton is a 74-year-old female who presented to [facility] [place] [facility] as direct admit with the diagnosis of acute liver failure from the clinic. 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 She did blood work which showed the elevated an alkaline phosphatase of 921, total bilirubin 4.0, AST 45, ALT 36. The patient reported that since April she has been nauseated, complains of mid abdominal pain, and food intolerance. Patient reports that she been drinking the boost drinks due to anorexia, and she has lost 35 lb since April. Patient was initiated on IV fluids and antibiotics. She was found to be flu B positive and completed tamiflu for the same. She underwent ERCP 09/02 with 9mm ductal stone removal. She subsequently underwent endoscopy and colonoscopy without any acute findings. She was then recommended for laparoscopic cholecystectomy. Patient had a laparoscopic cholecystectomy and simultaneously had an abdominal hernia repair on 09/06. Patient was able to gradually advance diet and tolerated well. She denied any nausea, vomiting or abdominal pain. Was followed by general surgery and was cleared for discharge. Patient was weak given multiple procedures and was recommended for SNF upon discharge for continued physical therapy but was denied by her insurance. Patient's at bedside stated he would help care for the patient at home. She was able to ambulate with assistance." Today, she returned to the ED after seeing her PCP, Dr. Mcallister for follow-up. She was told that her liver enzymes were not improving and "it even went up from 1000 to 1400." She was unable to identify the specifics of the lab nomenclature. She was instructed to go to the ED for further work-up. Patient claims that her appetite did not improve and she continues to only tolerate Boost and Glucerna shakes. She only drinks 1 bottle of 16-ounces of water everyday making her feel dehydrated. Although she can eat soft food, she just do not have the appetite to eat them. She reported that her vomiting is still persistent but her abdominal pain was gone. Negative for fever, chills, diarrhea, hematemesis, melena or hematochezia. Dr. Franco was notified by the ED RN but no further orders or recommendations since the patient was still waiting in the lobby. MRCP cannot be done today per foam charger and will only do it in the am. RUQ US pending results. Physical assessment was concerning for generalized jaundice without abdominal pain or tenderness, Ascites development on bilateral abdominal sides and 2+ pitting edema on BLE were noted. Goals of care were discussed with the patient verbalizing understanding and agreement. ] PAST MEDICAL HX: see above PAST SURGICAL HX: see above SOCIAL HISTORY: No tobacco, ETOH, or illicit drug use Coded Allergies: No Known Allergies (Unverified Allergy, Unknown, 08/24/24) REVIEW OF SYSTEMS: 12 point ROS reviewed with patient. Pertinent positives mentioned above. Otherwise negative. PHYSICAL EXAM: GENERAL: alert, weak, awake oriented x 3 HEENT: EOMI, Icteric sclera, dry mucosa, dry tongue NECK: Supple, no JVD, trachea midline LUNGS: Clear breath sounds bilaterally. No wheezes HEART: Regular rate and rhythm. Normal S1 and S2, without murmurs, Tachycardia ABD: Abdomen soft, nontender. Bowel sounds present, Jaundiced with incision CDI, bilateral abdominal sides were swollen EXT: No clubbing or cyanosis, 2+ pitting edema on BLE, Gen jaundice NEURO: Alert and oriented to person, follows commands Vital Signs (last 8hr) Date Time Temp Pulse Resp B/P (MAP) Pulse Ox O2 Delivery O2 Flow Rate FiO2 10/01/24 17:55 97.7 111 16 138/76 96 Room Air 0 LABS: DIAGNOSTICS / RADIOLOGY RESULTS: [ ] PLAN NEURO: Minimize central acting medications as possible. Maintain fall precautions, adequate lighting during the day PULMONARY: Supplemental 02 as needed. Maintain aspiration precautions at all times CARDIOVASCULAR: Follow hemodynamics. Vital signs per facility protocol GI & NUTRITION: Continue with nutritional support. Continue stool softeners and laxatives as needed. KIDNEYS & ELECTROLYTES: Strict monitoring of intake, output and overall fluid balance. Avoid nephrotoxic medications to the extent possible. Medications to be dosed according to renal function. Monitor electrolytes and replace as needed ENDOCRINE: Maintain blood glucose between 100-180 at all times. Hypoglycemia protocol in place INFECTIOUS DISEASE: Trend temperature, WBC and procalcitonin level Follow cultures, deescalate antibiotics as soon as possible. Panculture if new onset fever ONCOLOGY/HEMATOLOGY/COAGULATION: Monitor for s/s of bleeding Monitor hemoglobin, coagulation studies as needed SKIN: Pressure ulcer prevention per facility protocol Specialty mattress ORTHO/REHAB: Continue PT/OT Prophylaxis: Continue GI and DVT prophylaxis Code Status: DNR - WITNESSED BY BEDSIDE MIGEL ROLDAN Disposition: TBD Other: Total patient care time: 45 minutes YULI TOLEDO AGPCNP Oct 01, 2024 19:10
[2024-10-01 19:15] VITALS: BP 153/85; PULSE 82; RESP 18
[2024-10-01] MEDS ORDERED: LAbetaLOL 20MG SYG IV PRN (19:30)
[2024-10-01] MEDS ORDERED: GLUCAGON 1MG KIT 1 MG ML IM PRN (19:30)
[2024-10-01] MEDS ORDERED: DEXTROSE 50%-WATER 50 ML DISP.SYRIN IV PRN (19:30)
[2024-10-01] MEDS ORDERED: ALBUTEROL 0.083% 2.5 MG/3 ML INH IH PRN (19:30)
[2024-10-01] MEDS ORDERED: hydrALAZine 20MG/ML VIAL IV PRN (19:30)
[2024-10-01 19:35] LABS: BASOPHILS # (AUTO) 0.06 K/uL (0.00-0.20); BASOPHILS % (AUTO) 0.9 % (0.0-5.0); EOSINOPHILS # (AUTO) 0.03 K/uL (0.00-0.70); EOSINOPHILS % (AUTO) 0.5 % (0.0-8.0); HEMATOCRIT 31.9 % (36-48); IMMATURE GRANULOCYTE ABSOLUTE 0.07 K/uL (0-1); LYMPHOCYTES # (AUTO) 0.9 K/uL (1.0-4.8); LYMPHOCYTES % (AUTO) 13.2 % (21.0-51.0); MEAN CORPUSCULAR HEMOGLOBIN 35.6 pg (27.0-33.0); MEAN CORPUSCULAR HGB CONC 33.9 g/dL (32.0-36.0); MEAN CORPUSCULAR VOLUME 105.3 fL (79-99); MONOCYTES # (AUTO) 0.6 K/uL (0.1-1.0); MONOCYTES % (AUTO) 9.1 % (3.0-13.0); NEUTROPHILS # (AUTO) 4.9 K/uL (1.8-7.7); NEUTROPHILS % (AUTO) 75.2 % (40.0-77.0); PLATELET COUNT (AUTO) 332 K/uL (130-400); RED BLOOD CELL COUNT(AUTO) 3.03 MIL/uL (4.00-5.50); RED CELL DISTRIBUTION WIDTH 17.6 % (11.0-15.5); WHITE BLOOD COUNT (AUTO) 6.6 K/uL (4.8-10.8)
[2024-10-01 19:49] LABS: INR 1.17 (0.85-1.15); PROTHROMBIN TIME 12.5 SEC (9.6-11.6)
[2024-10-01 19:51] LABS: PARTIAL THROMBOPLASTIN TIME 27.7 SEC (26.3-35.5)
[2024-10-01 20:01] LABS: CREATININE 0.6 mg/dL (0.5-1.0); POTASSIUM 3.8 mmol/L (3.5-5.1)
[2024-10-01 20:12] VITALS: PULSE 91; RESP 17; O2SAT 99
[2024-10-01 20:22] LABS: ALBUMIN 1.5 g/dL (3.5-5.0); MAGNESIUM 1.8 mg/dL (1.80-2.40); PHOSPHORUS 3.2 mg/dL (2.5-4.9); TOTAL PROTEIN, SERUM 5.9 g/dL (6.0-8.3)
[2024-10-01 20:30] LABS: BILIRUBIN,DIRECT 17.8 mg/dL (0.0-0.3); BILIRUBIN,TOTAL 21.2 mg/dL (0.2-1.0)
--- NOTE | 2024-10-01 20:43 | HMCIMG ---
US ABDOMINAL RUQ\E\LTD HISTORY: Jaundice COMPARISON: None TECHNIQUE: Right upper quadrant abdominal ultrasound study was performed. FINDINGS: There are right hepatic cysts with the largest measuring 4.7 x 4.3 cm. The visualized portion of the pancreas is within normal limits. There is intrahepatic ductal dilatation measuring 15 mm on the right and 14 mm on the left. Liver is echogenic consistent with liver parenchymal disease. Gallbladder has been removed. Common duct measures 15 mm. No evidence of gallbladder wall thickening is seen. Right kidney measures 10.2 x 3.8 x 4.1 cm. No hydronephrosis is seen of the right kidney. Small ascites is seen. IMPRESSION: 1. Gallbladder has been removed. Intrahepatic and extrahepatic ductal dilatation is seen. Small ascites is seen. 2. No hydronephrosis is seen.
[2024-10-01] MEDS: LACTATED RINGERS IV ONE (21:21)
[2024-10-01] MEDS: ondanSETRON 4MG INJ IVP PRN (21:59)
--- NOTE | 2024-10-01 22:06 | NUR ---
PT VOICED WANTING TO BE DNR. PT HAS ADVANCE DIRECTIVES AT HOME BUT DID NOT BRING PAPERWORK WITH HER, WILL HAVE PT SIGN DNR PAPERWORK HERE IN ED.
--- NOTE | 2024-10-01 22:52 | HMCIMG ---
CT ABDOMEN/PELVIS W/O CONTRAST HISTORY: Hyperbilirubinemia COMPARISON: 08/24/2024 TECHNIQUE: Multiple sequential axial images of the abdomen and pelvis were obtained from the dome of the diaphragm through symphysis pubis. Patient was not given contrast through intravenous route. Oral contrast was not given. FINDINGS: There are small bilateral pleural effusions with compressive atelectasis. There is no evidence of parenchymal disease or pulmonary nodule of the visualized lower lungs. Degenerative changes of the thoracolumbar spine are present. The heart is not enlarged. Multiple hepatic cysts are seen. There are multiple hepatic cysts with the largest in the right hepatic lobe measuring 4.8 cm. Postcholecystectomy changes are seen. There is intrahepatic ductal dilatation. Liver measures 19 cm. Spleen, adrenal glands and pancreas are unremarkable. There is no evidence of hydronephrosis bilaterally. There is 9 mm right renal pelvic stone. Fecal material is seen in the colon. There are normal size retroperitoneal and mesenteric lymph nodes. There is ascites. There is anasarca. There is diverticulosis. Atherosclerotic changes are present. Pelvic sidewalls are symmetric bilaterally. Bladder is well distended without wall thickening. IMPRESSION: 1. Small ascites. Anasarca. Diverticulosis. Hepatic cysts. Intrahepatic ductal dilatation. 9 mm right renal pelvic stone. No hydronephrosis. CT was performed with one or more following dose reduction techniques: automated exposure control, adjustment of the mA and kv according to patient's size, or use of a iterative reconstruction technique.
[2024-10-01 23:10] VITALS: BP 115/68; PULSE 82; RESP 18; TEMP 97.8; O2SAT 97
[2024-10-02] VITALS (7 sets, daily range): BP systolic 105–116; BP diastolic 52–58; PULSE 74–93; RESP 18–22; TEMP 97.6–98.2; O2SAT 96–97
[2024-10-02] MEDS: INSULIN humuLIN R 100 UNIT/ML 3ML SQ SCH
--- NOTE | 2024-10-02 00:01 | NUR ---
RBS 127 mg/dL No insulin coverage needed at this time per insulin sliding scale.
[2024-10-02 05:18] LABS: BASOPHILS # (AUTO) 0.05 K/uL (0.00-0.20); EOSINOPHILS % (AUTO) 2.1 % (0.0-8.0); HEMATOCRIT 26.4 % (36-48); IMMATURE GRANULOCYTE ABSOLUTE 0.08 K/uL (0-1); LYMPHOCYTES % (AUTO) 21.8 % (21.0-51.0); MEAN CORPUSCULAR HEMOGLOBIN 35.1 pg (27.0-33.0); MEAN CORPUSCULAR HGB CONC 33.3 g/dL (32.0-36.0); MEAN CORPUSCULAR VOLUME 105.2 fL (79-99); MONOCYTES # (AUTO) 0.6 K/uL (0.1-1.0); MONOCYTES % (AUTO) 11.9 % (3.0-13.0); NEUTROPHILS # (AUTO) 2.9 K/uL (1.8-7.7); NEUTROPHILS % (AUTO) 61.5 % (40.0-77.0); PLATELET COUNT (AUTO) 294 K/uL (130-400); RED BLOOD CELL COUNT(AUTO) 2.51 MIL/uL (4.00-5.50); RED CELL DISTRIBUTION WIDTH 17.7 % (11.0-15.5); WHITE BLOOD COUNT (AUTO) 4.8 K/uL (4.8-10.8)
--- NOTE | 2024-10-02 05:28 | NUR ---
IV insertion Patient requested IV insertion at this time due to 20G IV to the right antecubital vein making her pump read pressure high. Successful 20G IV insertion to patient's left forearm. NS at 100cc/hr started to this IV.
[2024-10-02 05:39] LABS: APPEARANCE,URINE CLOUDY (CLEAR); BILIRUBIN,URINE 10 mg/dL (NEGATIVE); GLUCOSE, URINE (UA) NEGATIVE (NEGATIVE); KETONES,URINE NEGATIVE (NEGATIVE); LEUKOCYTE ESTERASE ,URINE NEGATIVE Leu/uL (NEGATIVE); NITRATE,URINE NEGATIVE (NEGATIVE); OCCULT BLOOD,URINE NEGATIVE (NEGATIVE); PROTEIN,URINE NEGATIVE (NEGATIVE); UROBILINOGEN,URINE 0.2 mg/dL (0.2-1.0)
[2024-10-02 05:41] LABS: CREATININE 0.6 mg/dL (0.5-1.0); MAGNESIUM 1.9 mg/dL (1.80-2.40); PHOSPHORUS 3.6 mg/dL (2.5-4.9); POTASSIUM 4.4 mmol/L (3.5-5.1)
[2024-10-02 05:45] LABS: COLOR,URINE AMBER (YELLOW)
[2024-10-02 05:47] LABS: BACTERIA,URINE RARE /HPF (None Seen); MUCUS,URINE RARE LPF (None Seen); SQUAMOUS EPITHELIAL CELL,UR RARE /HPF (0-2); WBC CLUMP FEW /HPF (0-1)
--- NOTE | 2024-10-02 05:58 | NUR ---
RBS 104 mg/dL No insulin coverage needed per insulin sliding scale at this time.
[2024-10-02] MEDS: MAGNESIUM 2GM PREMIX 50ML 50 ML IV PRN (06:02)
--- NOTE | 2024-10-02 06:02 | NUR ---
Magnesium 1.9 mg/dL Patient administered Magnesium 2GM/50 mL at a rate of 25cc/hr.
[2024-10-02 09:36] LABS: ALBUMIN 1.1 g/dL (3.5-5.0); TOTAL PROTEIN, SERUM 4.8 g/dL (6.0-8.3)
[2024-10-02 09:40] LABS: BILIRUBIN,DIRECT 13.8 mg/dL (0.0-0.3); BILIRUBIN,TOTAL 17.1 mg/dL (0.2-1.0)
--- NOTE | 2024-10-02 11:59 | HMCIMG ---
MRCP(ABDWWO)CHOLANGIOPANCREATO REASON: ABD PAIN COMPARISON: None TECHNIQUE: MRI abdomen images were obtained in the coronal and axial plane with T1, proton density, T2 and gradient recalled sequences. Images are also obtained pre and post gadolinium contrast infusion, 12 cc Clariscan IV. FINDINGS: There are small bilateral pleural effusions. There is marked dilatation of the intrahepatic biliary tree. This involves both right and left lobes. The main right and left lobe but biliary branches do not reach confluence in the hilum. There is a poorly defined mass in the liver hilum measuring 3.4 x 2.6 cm. This has moderate degree of contrast enhancement. Margins are difficult to visualize. 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 The common duct is not visualized. There are some cysts in the liver, there are no solid focal hepatic lesions. The pancreas appears normal pancreatic duct is not distended. There is no visible lymphadenopathy. Spleen and kidneys appear normal. There are no focal pancreatic masses. There are no focal fluid collections. There is no free fluid. IMPRESSION: 1. Markedly distended intrahepatic biliary tree, visible in both the right and left lobes. 2. Right and left main bile ducts did not reach confluence, there is a poorly defined soft tissue mass in the liver hilum at the confluence, rough measurements are 2.6 x 3.4 cm. This 3. 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 4. Otherwise unremarkable exam as discussed above.
--- NOTE | 2024-10-02 12:23 | NUR ---
DCP: HOME Pt states she had surgery 3wks ago and was getting [facility] nursing 2x a week for f/u care. Pt lives with [facility] [phone] who assists pt with ADLS, home management and meal prep. He transports as well. Pt has a shower chair and reg walker. PCP is Sam Mcallister and uses [facility] for rx. Consent on chart to continue HH. DCP is home
--- NOTE | 2024-10-02 13:21 | NUR ---
Nutrition consult per pcm eval Reviewed labs, notes, and medications. NPO since admin, zofran, Pt with poor appetite POA, w/ emesis POA, tolerates glucerna and boost at home, last PO intake 10/01/24 10 am, drinks ~16 oz water daily, vit. D deficiency POA, cholecystomy 09/16, last admin wt 09/16 70 kg, w/ zofran, hyponatremia 134, elevated bilirubin 17, elevated AST 115 per chart review. Wt via bed scale, last BM 10/01/24, mild pitting, mild muscle loss, no wounds per nursing. Pt with non-severe PCM, Supplement thiamin 100 mg/day for 5-7 days + MVI QD for at least 10 days. If Pt continues to be NPO >3 days, consider alternate means of nutrition. Recommendations: -Advance diet when medically feasible to low fat diet -If poor PO intake consider appetite stimulant once diet advanced -Monitor BM -If no BM >3 days consider stool softener -Consider probiotics if diarrhea present -Monitor electrolytes -Replenish electrolytes per protocol -Monitor wts -Reweigh as able -Order Vit D, vit b-12 labs to rule out deficiencies -Provide b-complex QD -Texture per [employer]D [employer] recs -Recommend Pt to follow up with PCP -Monitor goals of care RD to follow + available for consult per protocol Addendum: 10/02/24 at [address] Amended: Links added.
--- NOTE | 2024-10-02 13:28 | HMCIMG ---
US VENOUS DOPPLER BILATERAL REASON: swelling COMPARISON: None Technique: Bilateral venous doppler ultrasound was performed with spectral analysis and color flow imaging technique. FINDINGS: There is a normal appearance of the common femoral, deep femoral, the profunda femoris and popliteal veins. Proximal calf veins appear normal as well. There is normal response to compression and augmentation. There is no evidence of deep venous thrombosis. IMPRESSION: Normal bilateral lower extremity venous Doppler ultrasound.
[2024-10-02] MEDS ORDERED: GADOTERATE MEGLUMINE 10 MMOL/20 ML VIAL IV ONE (14:28)
--- NOTE | 2024-10-02 16:03 | PN ---
[facility] PROGRESS NOTE Date Patient Seen: Oct 02, 2024 Time of Visit: 15:57 Supervising Physician: Dr. Casey Noriega Primary Care Physician: [Dr. Mcallister ] Outpatient Specialists: [ ] Inpatient Consults: [GI: Dr. Franco ] PROBLEM LIST: Obstructive Jaundice with 2.6 x 3.4 a soft tissue mass concerning for cholangiocarcinoma Acute Dehydration-POA Unintentional Weightloss ,over 35lbs Recent acute cholecystitis and choledocholithiasis with intrahepatic dilatation, s/p ERCP with 9mm ductal stone removed s/p lap surendra 09/06/[address] Davenport Large Ventral Hernia with concern for strangulated omentum s/p ventral hernia repair with omentectomy 09/06/[address] Davenport Acute diverticulitis, s/p antibiotics and colonoscopy 09/02/[address] Franco Recent HX of Intractable abdominal pain with associated nausea and vomiting worsening over three-month with unintentional weight loss Polycystic liver disease Anemia of chronic disease Recent electrolyte derangement (hyponatremia, hypochloremia) Diabetes mellitus type 2 Chronic constipation History of total abdominal hysterectomy with bilateral salpingo-oophorectomy for complications related to endometriosis. History of liver cyst diagnosed in 1998 Vitamin-D deficiency Recent UTI in May, [id number] protein calorie malnutrition-POA HX of non-obstructive nephrolithiasis PLAN: -Admit to [facility] tele -Keep patient NPO -IV fluids for hydration -Obtain STAT admit labs -Obtain STAT RUQ US -Obtain MRCP in am -Obtain follow-up LFTs, direct and indirect bilirubin, Alpha-1 antitrypsin and GGT -Obtain CT AP -Rule-out component of malignancy by obtaining tumor markers: AFP, CEA, CA 19, CA125 -Consult lease administration supervisor in am -Consult Dr. Franco, pending eval and recx -Patient may need referral for mixing pan tender if condition progresses INTERVAL HISTORY: Patient was seen and examined today by me at bedside with in room. The patient was very weak, deconditioned with obvious failure to thrive. The patient was jaundiced with liver enzymes elevated bilirubin at 21.2. 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 At this time we are pending further recommendations from Gastroenterology. Patient denies any abdominal pain but it was asking for something to drink. Ultrasound of the lower extremities performed given bilateral lower extremity edema and above findings without evidence of thrombosis. CT scan of the abdomen and pelvis reveals small ascites with anasarca and diverticulitis. Hepatic cysts. Intrahepatic duct dilation with 9 mm right renal pelvic stone without hydronephrosis. Findings were discussed with patient and patient's family along , all questions answered. REVIEW OF SYSTEMS: 12 point ROS reviewed with patient. Pertinent positives mentioned above. Otherwise negative. PHYSICAL EXAM: GENERAL: alert, weak, awake oriented x 3, debilitated, deconditioned, jaundiced HEENT: EOMI, Icteric sclera, dry mucosa, dry tongue NECK: Supple, no JVD, trachea midline LUNGS: Clear breath sounds bilaterally. No wheezes HEART: Regular rate and rhythm. Normal S1 and S2, without murmurs, Tachycardia ABD: Abdomen soft, nontender. Bowel sounds present, Jaundiced with incision CDI, bilateral abdominal sides were swollen EXT: No clubbing or cyanosis, 2+ pitting edema on BLE, NEURO: Alert and oriented to person, follows commands Vital Signs (last 8hr) Date Time Temp Pulse Resp B/P (MAP) Pulse Ox O2 Delivery O2 Flow Rate FiO2 10/02/24 12:21 98.1 93 19 113/58 97 10/02/24 08:06 97.5 74 21 105/54 99 Room Air LABS: Hematology Labs: Test 10/02/24 04:53 10/01/24 19:24 Range/Units White Blood Count 4.8 # 4.8-10.8 K/uL Red Blood Count 2.51 L 4.00-5.50 MIL/uL Hemoglobin 8.8 L 12.0-16.0 g/dL Hematocrit 26.4 L 36-48 % Mean Corpuscular Volume 105.2 H 79-99 fL Mean Corpuscular Hemoglobin 35.1 H 27.0-33.0 pg Mean Corpuscular Hemoglobin Concent 33.3 32.0-36.0 g/dL Red Cell Distribution Width 17.7 H 11.0-15.5 % Platelet Count 294 130-400 K/uL Mean Platelet Volume 8.4 7.5-10.5 fL Immature Granulocyte % (Auto) 1.7 H 0-1 % Neutrophils (%) (Auto) 61.5 40.0-77.0 % Lymphocytes (%) (Auto) 21.8 21.0-51.0 % Monocytes (%) (Auto) 11.9 3.0-13.0 % Eosinophils (%) (Auto) 2.1 0.0-8.0 % Basophils (%) (Auto) 1.0 0.0-5.0 % Neutrophils # (Auto) 2.9 1.8-7.7 K/uL Lymphocytes # (Auto) 1.0 1.0-4.8 K/uL Monocytes # (Auto) 0.6 0.1-1.0 K/uL Eosinophils # (Auto) 0.10 0.00-0.70 K/uL Basophils # (Auto) 0.05 0.00-0.20 K/uL Absolute Immature Granulocyte (auto 0.08 0-1 K/uL Nucleated Red Blood Cells 0.0 0.0-0.19 % Red Blood Cell Morphology See comments Chemistry Labs: Test 10/02/24 12:03 10/02/24 04:53 10/01/24 19:24 Range/Units Whole Blood Glucose 113 H 70-110 MG/DL Sodium Level 134 L 136-145 mmol/L Potassium Level 4.4 3.5-5.1 mmol/L Chloride Level 103 101-111 mmol/L Carbon Dioxide Level 26 21-32 mmol/L Blood Urea Nitrogen 7 7-18 mg/dL Creatinine 0.6 0.5-1.0 mg/dL Glomerular Filtration Rate Calc 93 >90 mL/min Random Glucose 107 H 70-105 mg/dL Total Calcium 8.2 L 8.5-10.1 mg/dL Phosphorus Level 3.6 2.5-4.9 mg/dL Magnesium Level 1.90 1.80-2.40 mg/dL Total Bilirubin 17.1 *H 0.2-1.0 mg/dL Direct Bilirubin 13.8 #*H 0.0-0.3 mg/dL Aspartate Amino Transf (AST/SGOT) 115 H 10-37 U/L Alanine Aminotransferase (ALT/SGPT) 47 12-78 U/L Alkaline Phosphatase 1363 *H 50-136 U/L NM-Pjn-L-Type Natriuretic Peptide 334 0-450 pg/mL Total Protein 4.8 L 6.0-8.3 g/dL Albumin 1.1 #L 3.5-5.0 g/dL Lipase 9 L 16-77 U/L Vitamin B12 Level 3471 H 193-986 pg/mL Ionized Calcium 1.13 L 1.16-1.32 MMOL/L Gamma Glutamyl Transpeptidase 1327 *H 5-85 U/L Coagulation Labs: Test 10/01/24 19:24 Range/Units Prothrombin Time 12.5 H 9.6-11.6 SEC Prothromb Time International Ratio 1.17 H 0.85-1.15 Activated Partial Thromboplast Time 27.7 26.3-35.5 SEC DIAGNOSTICS / RADIOLOGY RESULTS: MRCP(ABDWWO)CHOLANGIOPANCREATO REASON: ABD PAIN COMPARISON: None TECHNIQUE: MRI abdomen images were obtained in the coronal and axial plane with T1, proton density, T2 and gradient recalled sequences. Images are also obtained pre and post gadolinium contrast infusion, 12 cc Clariscan IV. FINDINGS: There are small bilateral pleural effusions. There is marked dilatation of the intrahepatic biliary tree. This involves both right and left lobes. The main right and left lobe but biliary branches do not reach confluence in the hilum. There is a poorly defined mass in the liver hilum measuring 3.4 x 2.6 cm. This has moderate degree of contrast enhancement. Margins are difficult to visualize. 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 The common duct is not visualized. There are some cysts in the liver, there are no solid focal hepatic lesions. The pancreas appears normal pancreatic duct is not distended. There is no visible lymphadenopathy. Spleen and kidneys appear normal. There are no focal pancreatic masses. There are no focal fluid collections. There is no free fluid. IMPRESSION: 1. Markedly distended intrahepatic biliary tree, visible in both the right and left lobes. 2. Right and left main bile ducts did not reach confluence, there is a poorly defined soft tissue mass in the liver hilum at the confluence, rough measurements are 2.6 x 3.4 cm. This 3. 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 4. Otherwise unremarkable exam as discussed above. PLAN NEURO: Minimize central acting medications as possible. Maintain fall precautions, adequate lighting during the day PULMONARY: Supplemental 02 as needed. Maintain aspiration precautions at all times CARDIOVASCULAR: Follow hemodynamics. Vital signs per facility protocol GI & NUTRITION: Continue with nutritional support.- [facility] notified of result will proceed with further intervention possible stent if CBD can be cannulated and biopsy obtained. Await further recommendations Continue stool softeners and laxatives as needed. KIDNEYS & ELECTROLYTES: Strict monitoring of intake, output and overall fluid balance. Avoid nephrotoxic medications to the extent possible. Medications to be dosed according to renal function. Monitor electrolytes and replace as needed ENDOCRINE: Maintain blood glucose between 100-180 at all times. Hypoglycemia protocol in place INFECTIOUS DISEASE: Trend temperature, WBC and procalcitonin level Follow cultures, deescalate antibiotics as soon as possible. Panculture if new onset fever ONCOLOGY/HEMATOLOGY/COAGULATION: Monitor for s/s of bleeding Monitor hemoglobin, coagulation studies as needed SKIN: Pressure ulcer prevention per facility protocol Specialty mattress ORTHO/REHAB: Continue PT/OT Prophylaxis: Continue GI and DVT prophylaxis Code Status: DNR - WITNESSED BY BEDSIDE MIGEL ROLDAN Disposition: TBD Other: Total patient care time: 45 minutes LYNDSEY NGUYEN Oct 02, 2024 16:03
[2024-10-03] VITALS (8 sets, daily range): BP systolic 92–122; BP diastolic 41–58; PULSE 77–91; RESP 18; TEMP 97.6–98.2; O2SAT 98–99
--- NOTE | 2024-10-03 00:37 | NUR ---
RBS 84 mg/dL No insulin coverage needed at this time per insulin sliding scale.
--- NOTE | 2024-10-03 00:46 | CONS ---
GASTROENTEROLOGY CONSULTATION REASON FOR CONSULTATION: Painless jaundice with elevated liver chemistries and weight loss plus abnormal abdominal imaging with MRCP showing intrahepatic and extrahepatic ductal dilation and soft tissue mass in the hilum of the liver at the confluence, suggestive of cholangiocarcinoma. HISTORY OF PRESENT ILLNESS: The patient is a 74-year-old female with history of hyperlipidemia, diabetes mellitus, hypertension, who also has history of recent influenza B infection and polycystic liver disease and who is now status post laparoscopic cholecystectomy and repair of ventral hernia with omentectomy and who is admitted with jaundice and also has elevated liver chemistries and weight loss with abnormal abdominal imaging with ultrasound and CT scan showing biliary ductal dilation and MRCP showing the same but also tumor at the liver hilum at the confluence consistent with cholangiocarcinoma for which GI evaluation and management are sought. According to the patient, she has no abdominal pain, nausea, vomiting, melena or gross GI bleed. She continues with chronic constipation. The patient admits that over the last 3 days, she has noted dark urine and lower extremity swelling, also episodes of nausea, vomiting over the last 1 week. Evaluation by her PCP showed elevated bilirubin and elevated alkaline phosphatase and liver transaminases, so she was advised hospital admission for further evaluation and management. On presentation to the hospital, CT scan and ultrasound showed biliary ductal dilation as noted above with extrahepatic duct dilated. The CBD was also dilated at 15 mm. Ascites was also noted. CT scan revealed anasarca and multiple hepatic cysts also. MRCP however, does reveal soft tissue mass at the liver hilum confluence consistent with cholangiocarcinoma as noted above. The patient has no family history of colon cancer, stomach cancer, IBD or liver disease. The patient's pathology from her last surgery was not available for review at this time. ALLERGIES: No known drug allergies. PAST MEDICAL AND PAST SURGICAL HISTORY: See above, also history of diabetes mellitus, hypertension, also polycystic liver disease and history of cholelithiasis. There is no documented history of CAD, DE, seizure disorder, CVA, PUD or asthma. The patient has undergone laparoscopic cholecystectomy and also repair of ventral hernia with omentectomy. She has history of total abdominal hysterectomy with bilateral salpingo-oophorectomy for endometriosis complications. MEDICATIONS: Insulin, magnesium sulfate, glucagon, labetalol, hydralazine and ondansetron. SOCIAL HISTORY: No alcohol use, tobacco use, illicit drug use. FAMILY HISTORY: No family history of colon cancer, stomach cancer, IBD, pancreatic disease or gallbladder disease. She denies family history of liver disease also. REVIEW OF SYSTEMS: CONSTITUTIONAL: The patient reports anorexia and dark colored urine. She continues to lose weight and has chronic constipation. She denies any fevers or chills. OPHTHALMOLOGY: No recent vision change, eye pain, periorbital swelling, redness or drainage. DERMATOLOGY: Has jaundice. Denies any rash or excessive dry skin. ENT: No ear pain, tinnitus, hearing loss, nasal congestion, rhinorrhea, sore throat or voice changes. RESPIRATORY: Denies wheeze, rhinorrhea, epistaxis, cough, chest congestion. CARDIOVASCULAR: No chest pain, palpitation or leg swelling. GENITOURINARY: Dark colored urine but denies dysuria, hematuria, urinary urgency or frequency. GASTROINTESTINAL: She has anorexia as noted above. Chronic constipation but no abdominal pain. Nausea and vomiting has subsided now. She denies melena or hematochezia. MUSCULOSKELETAL: No joint pain, joint swelling or backache. NEUROLOGY: No tingling, numbness, vision changes or hearing loss but she feels unwell. PSYCHIATRY: No history of depression, anxiety, suicidal plans or ideation. ENDOCRINOLOGY: She has history of diabetes mellitus, hyperlipidemia but no documented thyroid disease. PHYSICAL EXAMINATION: GENERAL: The patient is a 74-year-old female who appears her stated age, seen resting in bed, notable jaundiced but in no acute respiratory distress. VITAL SIGNS: Blood pressure 109/52, heart rate 87, respirations 18, temperature 97.9 degrees Fahrenheit. SKIN: Warm, dry, jaundiced. HEENT: The patient's head is normocephalic, atraumatic. Pupils reactive, sclerae nonicteric. Oral mucosa was moist, no obvious lesion, no blood noted. Nasal mucosa showed no epistaxis, septal deviation or perforation. NECK: No obvious masses, no jugular venous distention, no lymphadenopathy, no thyromegaly. LUNGS: Clear to auscultation bilaterally. HEART: S1, S2. No obvious murmurs, rubs or gallops. ABDOMEN: Symmetric, soft with scar of recent laparoscopic cholecystectomy noted. Mesh is palpable in her abdomen, towards the left of the umbilicus. No tenderness noted in her abdomen. No masses palpable. EXTREMITIES: No cyanosis, clubbing or edema. RECTAL: Deferred. LABORATORY DATA: WBC 4.8, hemoglobin 8.8, hematocrit 26.4, MCV of 105.2 and platelet count of 294. PT 12.5, INR 1.17, APTT of 27.7. Serum chemistries reveal at admission bilirubin of 21.2 total and direct 17.8. GGT 1327, AST 144, ALT 58, alkaline phosphatase 1789, total protein of 5.9, albumin of 1.5. Sodium then was 132, potassium 3.8, chloride of 100, CO2 of 23, BUN of 9, creatinine 0.6, GFR of 93, random glucose 121, calcium of 8.7, ionized calcium 1.13. Phosphorus of 3.2, magnesium 1.8. Today, sodium 134, potassium 4.4, chloride of 103, CO2 of 26, BUN of 7, creatinine 0.6, GFR 93. Random glucose 107. Total calcium 8.2, phosphorus of 3.6, magnesium of 1.9, total bilirubin of 17.1, direct bilirubin of 13.8, AST 115, ALT 47, alkaline phosphatase 1363. Total protein of 4.8. Albumin of 1.1. DIAGNOSTIC DATA: MRCP revealed dilated intrahepatic biliary ducts, approximately 14-15 mm and soft tissue mass in the liver hilum at the confluence measuring 2.6 x 3.4, consistent with cholangiocarcinoma. Pancreas appeared normal. Multiple cysts in the liver. No solid focal hepatic lesion seen. Ultrasound of the abdomen done showed absent gallbladder. Intrahepatic or extrahepatic ductal dilation. Small ascites is seen. Intrahepatic duct measured 15 on the right and 14 on the left. Liver is echogenic consistent with liver parenchymal disease. Common duct measured [address] scan without contrast done 1 day ago showed small ascites, anasarca, diverticulosis, hepatic cysts and intrahepatic ductal dilation. A 9 mm right renal pelvic stone without hydronephrosis. IMPRESSION: * Jaundice with elevated liver chemistries and abnormal abdominal imaging as above, indicating cholangiocarcinoma on MRCP. * Diabetes mellitus. * Hypertension. * Chronic constipation. * Weight loss, likely related to pathology as listed above. PLAN: * Recommend biopsy of the liver lesion noted above. * Check CEA and CA 19-9. * Keep well hydrated. * Daily weights. * Oncology consultation. * Follow up on missing pathology from her recent surgery on gallbladder and abdominal wall hernia with omentectomy. * Follow up with a.m. labs. * Antiemetics as needed. Dr. Noriega and Dr. Mcallister, thank you for allowing me to participate in the care of this patient. TID: [id number] RECEIPT: [id number] cc: CAMRYN NORIEGA MD(User), Mónica Mcallister
[2024-10-03 05:49] LABS: BASOPHILS # (AUTO) 0.06 K/uL (0.00-0.20); BASOPHILS % (AUTO) 1.2 % (0.0-5.0); EOSINOPHILS # (AUTO) 0.08 K/uL (0.00-0.70); EOSINOPHILS % (AUTO) 1.6 % (0.0-8.0); HEMATOCRIT 26.8 % (36-48); IMMATURE GRANULOCYTE ABSOLUTE 0.07 K/uL (0-1); LYMPHOCYTES # (AUTO) 0.9 K/uL (1.0-4.8); LYMPHOCYTES % (AUTO) 17.5 % (21.0-51.0); MEAN CORPUSCULAR HEMOGLOBIN 35.3 pg (27.0-33.0); MEAN CORPUSCULAR HGB CONC 33.2 g/dL (32.0-36.0); MEAN CORPUSCULAR VOLUME 106.3 fL (79-99); MONOCYTES # (AUTO) 0.5 K/uL (0.1-1.0); MONOCYTES % (AUTO) 10.6 % (3.0-13.0); NEUTROPHILS # (AUTO) 3.4 K/uL (1.8-7.7); NEUTROPHILS % (AUTO) 67.7 % (40.0-77.0); PLATELET COUNT (AUTO) 274 K/uL (130-400); RED BLOOD CELL COUNT(AUTO) 2.52 MIL/uL (4.00-5.50); RED CELL DISTRIBUTION WIDTH 17.7 % (11.0-15.5)
--- NOTE | 2024-10-03 06:14 | NUR ---
RBS 88 mg/dL No insulin coverage needed at this time per insulin sliding scale.
[2024-10-03 06:42] LABS: ALBUMIN 1.2 g/dL (3.5-5.0); CREATININE 0.7 mg/dL (0.5-1.0); MAGNESIUM 2.1 mg/dL (1.80-2.40); POTASSIUM 4.7 mmol/L (3.5-5.1); TOTAL PROTEIN, SERUM 4.5 g/dL (6.0-8.3)
[2024-10-03 07:28] LABS: BILIRUBIN,TOTAL 17.1 mg/dL (0.2-1.0)
--- NOTE | 2024-10-03 07:49 | NUR ---
Dr. Franco orders. Received phone call from Dr. Franco. Orders for CT guided liver biopsy and placement of biliary drainage for today. Orders noted and carried out.
[2024-10-03] MEDS ORDERED: LORazepam 2 MG/ML 1 ML VIAL IVP PRN (13:30)
--- NOTE | 2024-10-03 14:03 | CONS ---
CONSULT NOTE: Patient was seen 09/02/2024 The patient is a 74-year-old female with history of hyperlipidemia, diabetes mellitus, hypertension, who also has history of recent influenza B infection and polycystic liver disease and who is now status post laparoscopic cholecystectomy and repair of ventral hernia with omentectomy and who is admitted with jaundice and also has elevated liver chemistries and weight loss with abnormal abdominal imaging with ultrasound and CT scan showing biliary ductal dilation and MRCP showing the same but also tumor at the liver hilum at the confluence consistent with cholangiocarcinoma for which GI evaluation and management are sought. According to the patient, she has no abdominal pain, nausea, vomiting, melena or gross GI bleed. She continues with chronic constipation. The patient admits that over the last 3 days, she has noted dark urine and lower extremity swelling, also episodes of nausea, vomiting over the last 1 week. Evaluation by her PCP showed elevated bilirubin and elevated alkaline phosphatase and liver transaminases, so she was advised hospital admission for further evaluation and management. On presentation to the hospital, CT scan and ultrasound showed biliary ductal dilation as noted above with extrahepatic duct dilated. The CBD was also dilated at 15 mm. Ascites was also noted. CT scan revealed anasarca and multiple hepatic cysts also. MRCP however, does reveal soft tissue mass at the liver hilum confluence consistent with cholangiocarcinoma as noted above. The patient has no family history of colon cancer, stomach cancer, IBD or liver disease. The patient's pathology from her last surgery was not available for review at this time. Patient actually evaluated by GI. ALLERGIES: No known drug allergies. PAST MEDICAL AND PAST SURGICAL HISTORY: See above, also history of diabetes mellitus, hypertension, also polycystic liver disease and history of cholelithiasis. There is no documented history of CAD, IL, seizure disorder, CVA, PUD or asthma. The patient has undergone laparoscopic cholecystectomy and also repair of ventral hernia with omentectomy. She has history of total abdominal hysterectomy with bilateral salpingo-oophorectomy for endometriosis complications. MEDICATIONS: Insulin, magnesium sulfate, glucagon, labetalol, hydralazine and ondansetron. SOCIAL HISTORY: No alcohol use, tobacco use, illicit drug use. FAMILY HISTORY: No family history of colon cancer, stomach cancer, IBD, pancreatic disease or gallbladder disease. She denies family history of liver disease also. REVIEW OF SYSTEMS: CONSTITUTIONAL: The patient reports anorexia and dark colored urine. She continues to lose weight and has chronic constipation. She denies any fevers or chills. OPHTHALMOLOGY: No recent vision change, eye pain, periorbital swelling, redness or drainage. DERMATOLOGY: Has jaundice. Denies any rash or excessive dry skin. ENT: No ear pain, tinnitus, hearing loss, nasal congestion, rhinorrhea, sore throat or voice changes. RESPIRATORY: Denies wheeze, rhinorrhea, epistaxis, cough, chest congestion. CARDIOVASCULAR: No chest pain, palpitation or leg swelling. GENITOURINARY: Dark colored urine but denies dysuria, hematuria, urinary urgency or frequency. GASTROINTESTINAL: She has anorexia as noted above. Chronic constipation but no abdominal pain. Nausea and vomiting has subsided now. She denies melena or hematochezia. MUSCULOSKELETAL: No joint pain, joint swelling or backache. NEUROLOGY: No tingling, numbness, vision changes or hearing loss but she feels unwell. PSYCHIATRY: No history of depression, anxiety, suicidal plans or ideation. ENDOCRINOLOGY: She has history of diabetes mellitus, hyperlipidemia but no documented thyroid disease. PHYSICAL EXAMINATION: GENERAL: The patient is a 74-year-old female who appears her stated age, seen resting in bed, notable jaundiced but in no acute respiratory distress. VITAL SIGNS: Blood pressure 109/52, heart rate 87, respirations 18, temperature 97.9 degrees Fahrenheit. SKIN: Warm, dry, jaundiced. HEENT: The patient's head is normocephalic, atraumatic. Pupils reactive, sclerae nonicteric. Oral mucosa was moist, no obvious lesion, no blood noted. Nasal mucosa showed no epistaxis, septal deviation or perforation. NECK: No obvious masses, no jugular venous distention, no lymphadenopathy, no thyromegaly. LUNGS: Clear to auscultation bilaterally. HEART: S1, S2. No obvious murmurs, rubs or gallops. ABDOMEN: Symmetric, soft with scar of recent laparoscopic cholecystectomy noted. Mesh is palpable in her abdomen, towards the left of the umbilicus. No tenderness noted in her abdomen. No masses palpable. EXTREMITIES: No cyanosis, clubbing or edema. RECTAL: Deferred. IMPRESSION: 1. Jaundice with MRCP showing possibility of soft tissue mass 2.6 x 3.6 cm in the liver hilum consistent with possible cholangiocarcinoma. We do not have any pathology report 2. Anemia 3. Diabetes mellitus 4. Hypertension 5. Significant weight loss 6. Status post cholecystectomy. We do not have the final report of pathology from there. Plan 1. MRCP showing 2.6 x 3.6 soft tissue mass in the liver hilum consistent with possibly cholangiocarcinoma. We need tissue biopsy. 2. I have long discussion with the patient regarding the plan of care. I answer all question and concern and I spent more than 35 minutes. I explained the patient the situation and that we need pathology report if possible. We will talk to GI regarding maybe doing ERCP and possible brushing. 3. Will try to get the result of pathology after they will bladder resection 4. May be a need to consult liver surgeon to see this patient LAB RESULTS 10/03/24 11:37: Whole Blood Glucose 85 10/03/24 05:29: White Blood Count 5.0, Red Blood Count 2.52L, Hemoglobin 8.9L, Hematocrit 26.8L, Mean Corpuscular Volume 106.3H, Mean Corpuscular Hemoglobin 35.3H, Mean Corpuscular Hemoglobin Concent 33.2, Red Cell Distribution Width 17.7H, Platelet Count 274, Mean Platelet Volume 8.0, Immature Granulocyte % (Auto) 1.4H, Neutrophils (%) (Auto) 67.7, Lymphocytes (%) (Auto) 17.5L, Monocytes (%) (Auto) 10.6, Eosinophils (%) (Auto) 1.6, Basophils (%) (Auto) 1.2, Neutrophils # (Auto) 3.4, Lymphocytes # (Auto) 0.9L, Monocytes # (Auto) 0.5, Eosinophils # (Auto) 0.08, Basophils # (Auto) 0.06, Absolute Immature Granulocyte (auto 0.07, Nucleated Red Blood Cells 0.0, Sodium Level 137, Potassium Level 4.7, Chloride Level 106, Carbon Dioxide Level 25, Blood Urea Nitrogen 7, Creatinine 0.7, Glomerular Filtration Rate Calc 90, Random Glucose 83, Total Calcium 8.2L, Magnesium Level 2.10, Total Bilirubin 17.1*H, Aspartate Amino Transf (AST/SGOT) 124H, Alanine Aminotransferase (ALT/SGPT) 43, Alkaline Phosphatase 1344*H, Total Protein 4.5L, Albumin 1.2L, Lipase 6L 10/02/24 05:08: Urine Color AMBERH, Urine Appearance CLOUDYH, Urine pH 6.0, Urine Specific [place] 1.012, Urine Protein NEGATIVE, Urine Glucose (UA) NEGATIVE, Urine Ketones NEGATIVE, Urine Occult Blood NEGATIVE, Urine Nitrate NEGATIVE, Urine Bilirubin 10H, Urine Urobilinogen 0.2, Urine Leukocyte Esterase NEGATIVE, Urine RBC 6-10H, Urine WBC 2-5H, Urine WBC Clumps (Auto) FEW, Urine Squamous Epithelial Cells RARE, Urine Bacteria RARE 10/02/24 04:53: Phosphorus Level 3.6, Direct Bilirubin 13.8#*H, IM-Vdc-J-Type Natriuretic Peptide 334, Tumor Marker Alpha Fetoprotein 2.8, Carcinoembryonic Antigen 46.3H, CA 19-9 Antigen 37H, CA 125 Antigen 317.0H, Vitamin B12 Level 3471H, Vitamin D 25-Hydroxy 36.0 10/01/24 19:24: Red Blood Cell Morphology See comments, Prothrombin Time 12.5H, Prothromb Time International Ratio 1.17H, Activated Partial Thromboplast Time 27.7, Ionized Calcium 1.13L, Gamma Glutamyl Transpeptidase 1327*H Laboratory Tests Test 10/02/24 18:35 10/03/24 00:35 10/03/24 05:20 10/03/24 05:29 Whole Blood Glucose 93 MG/DL (70-110) 84 MG/DL (70-110) 88 MG/DL (70-110) White Blood Count 5.0 K/uL (4.8-10.8) Red Blood Count 2.52 MIL/uL (4.00-5.50) L Hemoglobin 8.9 g/dL (12.0-16.0) L Hematocrit 26.8 % (36-48) L Mean Corpuscular Volume 106.3 fL (79-99) H Mean Corpuscular Hemoglobin 35.3 pg (27.0-33.0) H Mean Corpuscular Hemoglobin Concent 33.2 g/dL (32.0-36.0) Red Cell Distribution Width 17.7 % (11.0-15.5) H Platelet Count 274 K/uL (130-400) Mean Platelet Volume 8.0 fL (7.5-10.5) Immature Granulocyte % (Auto) 1.4 % (0-1) H Neutrophils (%) (Auto) 67.7 % (40.0-77.0) Lymphocytes (%) (Auto) 17.5 % (21.0-51.0) L Monocytes (%) (Auto) 10.6 % (3.0-13.0) Eosinophils (%) (Auto) 1.6 % (0.0-8.0) Basophils (%) (Auto) 1.2 % (0.0-5.0) Neutrophils # (Auto) 3.4 K/uL (1.8-7.7) Lymphocytes # (Auto) 0.9 K/uL (1.0-4.8) L Monocytes # (Auto) 0.5 K/uL (0.1-1.0) Eosinophils # (Auto) 0.08 K/uL (0.00-0.70) Basophils # (Auto) 0.06 K/uL (0.00-0.20) Absolute Immature Granulocyte (auto 0.07 K/uL (0-1) Nucleated Red Blood Cells 0.0 % (0.0-0.19) Sodium Level 137 mmol/L (136-145) Potassium Level 4.7 mmol/L (3.5-5.1) Chloride Level 106 mmol/L (101-111) Carbon Dioxide Level 25 mmol/L (21-32) Blood Urea Nitrogen 7 mg/dL (7-18) Creatinine 0.7 mg/dL (0.5-1.0) Glomerular Filtration Rate Calc 90 mL/min (>90) Random Glucose 83 mg/dL (70-105) Total Calcium 8.2 mg/dL (8.5-10.1) L Magnesium Level 2.10 mg/dL (1.80-2.40) Total Bilirubin 17.1 mg/dL (0.2-1.0) *H Aspartate Amino Transf (AST/SGOT) 124 U/L (10-37) H Alanine Aminotransferase (ALT/SGPT) 43 U/L (12-78) Alkaline Phosphatase 1344 U/L (50-136) *H Total Protein 4.5 g/dL (6.0-8.3) L Albumin 1.2 g/dL (3.5-5.0) L Lipase 6 U/L (16-77) L Test 10/03/24 11:37 Whole Blood Glucose 85 MG/DL (70-110) DEMETRICE BLANKENSHIP MD Oct 03, 2024 14:03
--- NOTE | 2024-10-03 14:07 | PN ---
The patient is a 74-year-old female with history of hyperlipidemia, diabetes mellitus, hypertension, who also has history of recent influenza B infection and polycystic liver disease and who is now status post laparoscopic cholecystectomy and repair of ventral hernia with omentectomy and who is admitted with jaundice and also has elevated liver chemistries and weight loss with abnormal abdominal imaging with ultrasound and CT scan showing biliary ductal dilation and MRCP showing the same but also tumor at the liver hilum at the confluence consistent with cholangiocarcinoma for which GI evaluation and management are sought. According to the patient, she has no abdominal pain, nausea, vomiting, melena or gross GI bleed. She continues with chronic constipation. The patient admits that over the last 3 days, she has noted dark urine and lower extremity swelling, also episodes of nausea, vomiting over the last 1 week. Evaluation by her PCP showed elevated bilirubin and elevated alkaline phosphatase and liver transaminases, so she was advised hospital admission for further evaluation and management. On presentation to the hospital, CT scan and ultrasound showed biliary ductal dilation as noted above with extrahepatic duct dilated. The CBD was also dilated at 15 mm. Ascites was also noted. CT scan revealed anasarca and multiple hepatic cysts also. MRCP however, does reveal soft tissue mass at the liver hilum confluence consistent with cholangiocarcinoma as noted above. The patient has no family history of colon cancer, stomach cancer, IBD or liver disease. The patient's pathology from her last surgery was not available for review at this time. Patient actually evaluated by GI. PHYSICAL EXAMINATION: GENERAL: The patient is a 74-year-old female who appears her stated age, seen resting in bed, notable jaundiced but in no acute respiratory distress. VITAL SIGNS: Blood pressure 109/52, heart rate 87, respirations 18, temperature 97.9 degrees Fahrenheit. SKIN: Warm, dry, jaundiced. HEENT: The patient's head is normocephalic, atraumatic. Pupils reactive, sclerae nonicteric. Oral mucosa was moist, no obvious lesion, no blood noted. Nasal mucosa showed no epistaxis, septal deviation or perforation. NECK: No obvious masses, no jugular venous distention, no lymphadenopathy, no thyromegaly. LUNGS: Clear to auscultation bilaterally. HEART: S1, S2. No obvious murmurs, rubs or gallops. ABDOMEN: Symmetric, soft with scar of recent laparoscopic cholecystectomy noted. Mesh is palpable in her abdomen, towards the left of the umbilicus. No tenderness noted in her abdomen. No masses palpable. EXTREMITIES: No cyanosis, clubbing or edema. RECTAL: Deferred. IMPRESSION: 1. Jaundice with MRCP showing possibility of soft tissue mass 2.6 x 3.6 cm in the liver hilum consistent with possible cholangiocarcinoma. We do not have any pathology report 2. Anemia 3. Diabetes mellitus 4. Hypertension 5. Significant weight loss 6. Status post cholecystectomy. We do not have the final report of pathology from there. Plan 1. MRCP showing 2.6 x 3.6 soft tissue mass in the liver hilum consistent with possibly cholangiocarcinoma. We need tissue biopsy. 2. I have long discussion with the patient regarding the plan of care. I answer all question and concern and I spent more than 35 minutes. I explained the patient the situation and that we need pathology report if possible. We will talk to GI regarding maybe doing ERCP and possible brushing. 3. Will try to get the result of pathology after they will bladder resection 4. May be a need to consult liver surgeon to see this patient Vitals/Labs Vital Signs Date Time Temp Pulse Resp B/P (MAP) Pulse Ox O2 Delivery O2 Flow Rate FiO2 10/03/24 11:58 98.2 84 18 118/58 98 Room Air 21 10/03/24 08:15 0 Laboratory Tests 10/03/24 05:29 Medications Current Medications Sodium Chloride 1,000 ml @ 50 mls/hr Q20H IV Last administered on 10/03/24at 11:38; Start 10/01/24 at 19:00; Stop 10/31/24 at 18:59 Albuterol Sulfate 2.5 mg [id number] PRN IH; Start 10/01/24 at 19:30; Stop 10/31/24 at 19:29 Ondansetron HCl 4 mg Q6H PRN IVP Last administered on 10/01/24at 21:59; Start 10/01/24 at 19:30; Stop 10/31/24 at 19:29 Hydralazine HCl 10 mg Q6H PRN IV; Start 10/01/24 at 19:30; Stop 10/31/24 at 19:29 Labetalol HCl 10 mg Q2H PRN IV; Start 10/01/24 at 19:30; Stop 10/31/24 at 19:29 Dextrose 50 ml AD PRN IV; Start 10/01/24 at 19:30; Stop 10/31/24 at 19:29 Glucagon 1 mg AD PRN IM; Start 10/01/24 at 19:30; Stop 10/31/24 at 19:29 Insulin Human Regular INSULIN SLIDING SCAL... Q6H6 SQ; Start 10/02/24 at 00:00; Stop 11/01/24 at 00:00 Magnesium Sulfate 50 ml @ 0 mls/hr PROTOCOL PRN IV Last administered on 10/02/24at 06:02; Start 10/01/24 at 19:30; Stop 10/31/24 at 19:29 Lactated Ringer's 594 ml @ 198 mls/hr ONCE ONCE IV Last administered on 10/01/24at 21:21; Start 10/01/24 at 19:30; Stop 10/01/24 at 22:29; Status DC Gadoterate Meglumine 10 mmol STK-MED ONCE IV; Start 10/02/24 at 14:28; Stop 10/02/24 at 14:28; Status DC Lorazepam 0.5 mg Q12H PRN IVP; Start 10/03/24 at 13:30; Stop 10/10/24 at 13:29 DEMETRICE BLANKENSHIP MD Oct 03, 2024 14:07
--- NOTE | 2024-10-03 14:32 | NUR ---
UNABLE TO DO CT BIOPSY IR UNABLE TO DO BIOPSY, THAT IS HAS TO BE DONE USING MRI WHICH IS NOT DONE HERE ACCORDING TO RADIOLOGIST. INFORMED DOCTOR GREEN NO NEW ORDERS AT THIS TIME.
--- NOTE | 2024-10-03 17:00 | NUR ---
POSTPONED BILIARAY DRAIN PLACEMENT PATIENT WAS NPO, PENDING BILIARY DRAIN PLACEMENT TO BE DONE TODAY WITH SIPHONER, INFORMED BY MIGEL BRADFORD THAT THEY WERE PENDING DR. MONZON TO ARRIVE, THEN THEY RECEIVED A CALL THAT HE WILL BE HERE AROUND 1600 THAT THE PATIENT IS STILL PENDING. THEN HE NEVER SHOWED UP. PROCEDURE IS RESCHEDULED FOR 10/04/24. INFORMED PATIENT OF RESCHEDULED PROCEDURE AND NOTIFIED FIDEL SOLORIO OF UPDATE.
--- NOTE | 2024-10-03 17:46 | PN ---
[facility] PROGRESS NOTE Date Patient Seen: Oct 03, 2024 Time of Visit: 17:37 Supervising Physician: DR. ANY CHENG Primary Care Physician: [Dr. Mcallister ] Outpatient Specialists: [ ] Inpatient Consults: [GI: Dr. Franco ] PROBLEM LIST: Obstructive Jaundice with 2.6 x 3.4 a soft tissue mass concerning for cholangiocarcinoma Acute Dehydration-POA Unintentional Weightloss ,over 35lbs Recent acute cholecystitis and choledocholithiasis with intrahepatic dilatation, s/p ERCP with 9mm ductal stone removed s/p lap surendra 09/06/[address] Davenport Large Ventral Hernia with concern for strangulated omentum s/p ventral hernia repair with omentectomy 09/06/[address] Davenport Acute diverticulitis, s/p antibiotics and colonoscopy 09/02/[address] Franco Recent HX of Intractable abdominal pain with associated nausea and vomiting worsening over three-month with unintentional weight loss Polycystic liver disease Anemia of chronic disease Recent electrolyte derangement (hyponatremia, hypochloremia) Diabetes mellitus type 2 Chronic constipation History of total abdominal hysterectomy with bilateral salpingo-oophorectomy for complications related to endometriosis. History of liver cyst diagnosed in 1998 Vitamin-D deficiency Recent UTI in May, [id number] protein calorie malnutrition-POA HX of non-obstructive nephrolithiasis INTERVAL HISTORY: Patient was seen and examined today by me at bedside with in room. The patient was very weak, deconditioned with obvious failure to thrive. The patient was jaundiced with liver enzymes elevated bilirubin that is downtrending from yesterday MRCP has been done revealing a soft tissue mass concerning for c holangiocarcinoma measuring 2.[address] Franco his recommended drain insertion and biopsy of mass. At this time CT-guided biopsy is not recommended and they are recommending MRI instead. IR Radiology we will discuss with Gastroenterology. Patient denies any abdominal pain but does have no appetite. We discussed the patient's malnutrition and recommendations for PPN at this time. Patient does not want to eat very much and is declining most foods. REVIEW OF SYSTEMS: 12 point ROS reviewed with patient. Pertinent positives mentioned above. Otherwise negative. PHYSICAL EXAM: GENERAL: alert, weak, awake oriented x 3, debilitated, deconditioned, jaundiced HEENT: EOMI, Icteric sclera, dry mucosa, dry tongue NECK: Supple, no JVD, trachea midline LUNGS: Clear breath sounds bilaterally. No wheezes HEART: Regular rate and rhythm. Normal S1 and S2, without murmurs, Tachycardia ABD: Abdomen soft, nontender. Bowel sounds present, Jaundiced, bilateral abdominal sides were swollen EXT: No clubbing or cyanosis, 2+ pitting edema on BLE, NEURO: Alert and oriented to person, follows commands Vital Signs (last 8hr) Date Time Temp Pulse Resp B/P (MAP) Pulse Ox O2 Delivery O2 Flow Rate FiO2 10/03/24 16:05 98.1 86 18 102/55 98 Room Air 10/03/24 11:58 98.2 84 18 118/58 98 Room Air 21 LABS: Hematology Labs: Test 10/03/24 05:29 10/01/24 19:24 Range/Units White Blood Count 5.0 4.8-10.8 K/uL Red Blood Count 2.52 L 4.00-5.50 MIL/uL Hemoglobin 8.9 L 12.0-16.0 g/dL Hematocrit 26.8 L 36-48 % Mean Corpuscular Volume 106.3 H 79-99 fL Mean Corpuscular Hemoglobin 35.3 H 27.0-33.0 pg Mean Corpuscular Hemoglobin Concent 33.2 32.0-36.0 g/dL Red Cell Distribution Width 17.7 H 11.0-15.5 % Platelet Count 274 130-400 K/uL Mean Platelet Volume 8.0 7.5-10.5 fL Immature Granulocyte % (Auto) 1.4 H 0-1 % Neutrophils (%) (Auto) 67.7 40.0-77.0 % Lymphocytes (%) (Auto) 17.5 L 21.0-51.0 % Monocytes (%) (Auto) 10.6 3.0-13.0 % Eosinophils (%) (Auto) 1.6 0.0-8.0 % Basophils (%) (Auto) 1.2 0.0-5.0 % Neutrophils # (Auto) 3.4 1.8-7.7 K/uL Lymphocytes # (Auto) 0.9 L 1.0-4.8 K/uL Monocytes # (Auto) 0.5 0.1-1.0 K/uL Eosinophils # (Auto) 0.08 0.00-0.70 K/uL Basophils # (Auto) 0.06 0.00-0.20 K/uL Absolute Immature Granulocyte (auto 0.07 0-1 K/uL Nucleated Red Blood Cells 0.0 0.0-0.19 % Red Blood Cell Morphology See comments Chemistry Labs: Test 10/03/24 11:37 10/03/24 05:29 10/02/24 04:53 10/01/24 19:24 Range/Units Whole Blood Glucose 85 70-110 MG/DL Sodium Level 137 136-145 mmol/L Potassium Level 4.7 3.5-5.1 mmol/L Chloride Level 106 101-111 mmol/L Carbon Dioxide Level 25 21-32 mmol/L Blood Urea Nitrogen 7 7-18 mg/dL Creatinine 0.7 0.5-1.0 mg/dL Glomerular Filtration Rate Calc 90 >90 mL/min Random Glucose 83 70-105 mg/dL Total Calcium 8.2 L 8.5-10.1 mg/dL Magnesium Level 2.10 1.80-2.40 mg/dL Total Bilirubin 17.1 *H 0.2-1.0 mg/dL Aspartate Amino Transf (AST/SGOT) 124 H 10-37 U/L Alanine Aminotransferase (ALT/SGPT) 43 12-78 U/L Alkaline Phosphatase 1344 *H 50-136 U/L Total Protein 4.5 L 6.0-8.3 g/dL Albumin 1.2 L 3.5-5.0 g/dL Lipase 6 L 16-77 U/L Phosphorus Level 3.6 2.5-4.9 mg/dL Direct Bilirubin 13.8 #*H 0.0-0.3 mg/dL IJ-Cvr-D-Type Natriuretic Peptide 334 0-450 pg/mL Tumor Marker Alpha Fetoprotein 2.8 0.0-9.2 ng/mL Carcinoembryonic Antigen 46.3 H 0.0-4.7 ng/mL CA 19-9 Antigen 37 H 0-35 U/mL CA 125 Antigen 317.0 H 0.0-38.1 U/mL Vitamin B12 Level 3471 H 193-986 pg/mL Vitamin D 25-Hydroxy 36.0 30.0-100.0 ng/mL Ionized Calcium 1.13 L 1.16-1.32 MMOL/L Gamma Glutamyl Transpeptidase 1327 *H 5-85 U/L Coagulation Labs: Test 10/01/24 19:24 Range/Units Prothrombin Time 12.5 H 9.6-11.6 SEC Prothromb Time International Ratio 1.17 H 0.85-1.15 Activated Partial Thromboplast Time 27.7 26.3-35.5 SEC DIAGNOSTICS / RADIOLOGY RESULTS: [ ] PLAN NEURO: Minimize central acting medications as possible. Maintain fall precautions, adequate lighting during the day PULMONARY: Supplemental 02 as needed. Maintain aspiration precautions at all times CARDIOVASCULAR: Follow hemodynamics. Vital signs per facility protocol GI & NUTRITION: Continue with nutritional support.- advance to bland diet GI on case IR to place drain pending biopsy Continue stool softeners and laxatives as needed. Discussed malnutrtion recommend PpN for now and marinol Alternative means of nutrition will have to be decided. KIDNEYS & ELECTROLYTES: Strict monitoring of intake, output and overall fluid balance. Avoid nephrotoxic medications to the extent possible. Medications to be dosed according to renal function. Monitor electrolytes and replace as needed ENDOCRINE: Maintain blood glucose between 100-180 at all times. Hypoglycemia protocol in place INFECTIOUS DISEASE: Trend temperature, WBC and procalcitonin level Follow cultures, deescalate antibiotics as soon as possible. Panculture if new onset fever ONCOLOGY/HEMATOLOGY/COAGULATION: Monitor for s/s of bleeding Monitor hemoglobin, coagulation studies as needed SKIN: Pressure ulcer prevention per facility protocol Specialty mattress ORTHO/REHAB: Continue PT/OT Prophylaxis: Continue GI and DVT prophylaxis Code Status: DNR - WITNESSED BY BEDSIDE MIGEL ROLDAN Disposition: TBD Other: Total patient care time: 45 minutes LYNDSEY NGUYEN Oct 03, 2024 17:46
[2024-10-03] MEDS ORDERED: CLINIMIX-E 4.25AA/D5+LYT1000ML 1,000 ML IV SCH (20:00)
[2024-10-03] MEDS: droNABinol 2.5 MG CAP PO SCH (21:22)
[2024-10-03] MEDS: CLINIMIX-E4.25%AA/D5+LYT2000ML 2,000 ML IV ONE (21:22)
--- NOTE | 2024-10-03 23:30 | NUR ---
IV infiltrated 20G IV to patient's left forearm surrounding tissue noted swollen and infiltrated. IV removed. Patient's PPN started on her 20G IV to right antecubital vein.
[2024-10-04] VITALS (26 sets, daily range): BP systolic 91–136; BP diastolic 44–81; PULSE 67–111; RESP 16–20; TEMP 97.2–98.9; O2SAT 98
--- NOTE | 2024-10-04 00:01 | NUR ---
RBS 128 mg/dL No insulin coverage needed at this time per insulin sliding scale.
[2024-10-04 05:25] LABS: BASOPHILS # (AUTO) 0.06 K/uL (0.00-0.20); BASOPHILS % (AUTO) 1.3 % (0.0-5.0); EOSINOPHILS % (AUTO) 2.2 % (0.0-8.0); HEMATOCRIT 26.6 % (36-48); IMMATURE GRANULOCYTE ABSOLUTE 0.04 K/uL (0-1); LYMPHOCYTES # (AUTO) 0.8 K/uL (1.0-4.8); LYMPHOCYTES % (AUTO) 16.8 % (21.0-51.0); MEAN CORPUSCULAR HEMOGLOBIN 35.9 pg (27.0-33.0); MEAN CORPUSCULAR HGB CONC 33.8 g/dL (32.0-36.0); MONOCYTES # (AUTO) 0.6 K/uL (0.1-1.0); MONOCYTES % (AUTO) 12.4 % (3.0-13.0); NEUTROPHILS # (AUTO) 3.1 K/uL (1.8-7.7); NEUTROPHILS % (AUTO) 66.4 % (40.0-77.0); PLATELET COUNT (AUTO) 279 K/uL (130-400); RED BLOOD CELL COUNT(AUTO) 2.51 MIL/uL (4.00-5.50); RED CELL DISTRIBUTION WIDTH 17.4 % (11.0-15.5); WHITE BLOOD COUNT (AUTO) 4.6 K/uL (4.8-10.8)
--- NOTE | 2024-10-04 05:43 | NUR ---
RBS 134 mg/dL No insulin coverage needed at this time per insulin sliding scale.
[2024-10-04 06:07] LABS: ALBUMIN 1.1 g/dL (3.5-5.0); CREATININE 0.7 mg/dL (0.5-1.0); POTASSIUM 4.2 mmol/L (3.5-5.1); TOTAL PROTEIN, SERUM 4.7 g/dL (6.0-8.3)
[2024-10-04 06:27] LABS: BILIRUBIN,DIRECT 14.2 mg/dL (0.0-0.3); BILIRUBIN,TOTAL 17.7 mg/dL (0.2-1.0)
--- NOTE | 2024-10-04 08:05 | NUR ---
Nutrition f/u Reviewed labs, notes, and medications. Pt with liver mass, ascites present, on GI soft/bland diet, elevated bilirubin 14.2, hyperglycemia 134, hyponatremia 135, elevated b12, elevated GGT, vit. D borderline 36, no wt change per chart review. Pt declining most foods, continues w/ poor appetite, mild pitting, last BM 10/01/24, no wounds, -400 ml balance 10/02/24, N/V episode 10/03/24 per nursing. PPN and TPN for short-term nutrition, consider alternate means of long-term nutrition or appetite stimulant. Communicated with nursing regarding PPN recs. Due to patients condition consider water-miscible forms of fat-soluble vitamins (A,D,E, and K) to enhance absorption due to compromised liver function. Consider monitoring GGT, bilirubin, AST and ALT labs, if available provide MCT over LCTs due to MCT being able to be absorbed more easily and require less hepatic processing. Consider providing lipid emulsion 1x per week if LCTs are used, due to lipid infusion may worsen liver function. PPN rate may gradually increase, monitor fluid balance and tolerance. Recommendations: -Consider clinimix 4.25/5 at a rate of 50 ml/hr x 24 (considering ascites) Provides: 1200 ml, 51 gm pro, 60 gm cho, 408 kcals ( meets 27 % of Pt's needs) -Include 10 ml adult MVI and 3 ml trace elements -Provide 1x weekly of lipid emulsion to prevent essential fatty acid deficiencies -Fluid restriction per MD -Monitor electrolytes -Replenish electrolytes per protocol -Consider appetite stimulant or tank terminal gauger alternate means of nutrition -Monitor goals of care RD to follow + available for consult per protocol Addendum: 10/04/24 at [address] Amended: Links added.
--- NOTE | 2024-10-04 09:26 | NUR ---
LIVER BX CANCELLED PER DR NORTON THERE IS AN OBSTRUCTING TUMOR AT THE CONFLUENCE OF LT AND RT BILIARY DUCTS. CAN SAFELY PERFORM A BRUSH BX WITH PTC WITH ANESTHESIA. SANCHEZ [employer]SEM[employer]ER RN, SCHEDULING, AND PRIMARY NURSE NOTIFIED,
--- NOTE | 2024-10-04 11:30 | PN ---
[facility] PROGRESS NOTE Date Patient Seen: Oct 04, 2024 Time of Visit: 11:22 Supervising Physician: NIKKI FLANAGAN MD Primary Care Physician: [Dr. Mcallister ] Outpatient Specialists: [ ] Inpatient Consults: [GI: Dr. 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 Davenport Large Ventral Hernia with concern for strangulated omentum s/p ventral hernia repair with omentectomy 09/06/[address] Davenport Acute diverticulitis, s/p antibiotics and colonoscopy 09/02/[address] Franco Recent HX of Intractable abdominal pain with associated nausea and vomiting worsening over three-month with unintentional weight loss Polycystic liver disease Anemia of chronic disease Recent electrolyte derangement (hyponatremia, hypochloremia) Diabetes mellitus type 2 Chronic constipation History of total abdominal hysterectomy with bilateral salpingo-oophorectomy for complications related to endometriosis. History of liver cyst diagnosed in 1998 Vitamin-D deficiency Recent UTI in May, [id number] protein calorie malnutrition-POA HX of non-obstructive nephrolithiasis INTERVAL HISTORY: Patient was seen and examined today by me at bedside with in room. The patient is very weak, deconditioned with obvious failure to thrive. The patient was jaundiced with liver enzymes elevated bilirubin MRCP has been done revealing a soft tissue mass concerning for cholangiocarcinoma measuring 2.6 x 3.4 cm. LFts continue elevated , bilirubin is 17.7, direct bilirubin is 14.2. AST 129 ALT 48 , with alkaline phosphatase at 1544. Alpha fetoprotein is normal, CEA is elevated at 46.3, CA 19 nine is elevated at 37, CA125 is elevated at 317. She was set to undergo Biopsy and Drain placement today however did receive a call later in the day that biopsy was not successful but 2 drains were placed. Radiologist did recommend Iv antibiotics and will reattempt biopsy, we will need clarification from Ir and Dr. Bartlett if this is to be done during this admission . Dr. Ilene Teresa did see the patient with me at bedside and is recommending follow up outpatient once drain and biopsy has been done. He did speak to Dr. Valverde about her case and she will be evaluated by him outpatient for possible surgical resection if she is a candidate ,if not then chemo-radiation may be an option Unfortunately she has not tolerated much PO and will need to get better from this prior to proceeding with more invasive interventions. She does not want PEG tube , at this time we have her on PPN and Marinol and soft diet. We can wean down PPN as diet is advanced. REVIEW OF SYSTEMS: 12 point ROS reviewed with patient. Pertinent positives mentioned above. Otherwise negative. PHYSICAL EXAM: GENERAL: alert, weak, awake oriented x 3, debilitated, deconditioned, jaundiced HEENT: EOMI, Icteric sclera, dry mucosa, dry tongue NECK: Supple, no JVD, trachea midline LUNGS: Clear breath sounds bilaterally. No wheezes HEART: Regular rate and rhythm. Normal S1 and S2, without murmurs, Tachycardia ABD: Abdomen soft, nontender. Bowel sounds present, Jaundiced, bilateral abdominal sides were swollen EXT: No clubbing or cyanosis, 2+ pitting edema on BLE, NEURO: Alert and oriented to person, follows commands Vital Signs (last 8hr) Date Time Temp Pulse Resp B/P (MAP) Pulse Ox O2 Delivery O2 Flow Rate FiO2 10/04/24 07:50 97.2 67 18 108/56 96 Room Air 21 10/04/24 04:00 97.5 85 19 103/56 99 Room Air LABS: Hematology Labs: Test 10/04/24 05:16 Range/Units White Blood Count 4.6 L 4.8-10.8 K/uL Red Blood Count 2.51 L 4.00-5.50 MIL/uL Hemoglobin 9.0 L 12.0-16.0 g/dL Hematocrit 26.6 L 36-48 % Mean Corpuscular Volume 106.0 H 79-99 fL Mean Corpuscular Hemoglobin 35.9 H 27.0-33.0 pg Mean Corpuscular Hemoglobin Concent 33.8 32.0-36.0 g/dL Red Cell Distribution Width 17.4 H 11.0-15.5 % Platelet Count 279 130-400 K/uL Mean Platelet Volume 8.0 7.5-10.5 fL Immature Granulocyte % (Auto) 0.9 0-1 % Neutrophils (%) (Auto) 66.4 40.0-77.0 % Lymphocytes (%) (Auto) 16.8 L 21.0-51.0 % Monocytes (%) (Auto) 12.4 3.0-13.0 % Eosinophils (%) (Auto) 2.2 0.0-8.0 % Basophils (%) (Auto) 1.3 0.0-5.0 % Neutrophils # (Auto) 3.1 1.8-7.7 K/uL Lymphocytes # (Auto) 0.8 L 1.0-4.8 K/uL Monocytes # (Auto) 0.6 0.1-1.0 K/uL Eosinophils # (Auto) 0.10 0.00-0.70 K/uL Basophils # (Auto) 0.06 0.00-0.20 K/uL Absolute Immature Granulocyte (auto 0.04 0-1 K/uL Nucleated Red Blood Cells 0.0 0.0-0.19 % Chemistry Labs: Test 10/04/24 11:01 10/04/24 05:16 10/03/24 05:29 Range/Units Whole Blood Glucose 161 H 70-110 MG/DL Sodium Level 135 L 136-145 mmol/L Potassium Level 4.2 3.5-5.1 mmol/L Chloride Level 104 101-111 mmol/L Carbon Dioxide Level 25 21-32 mmol/L Blood Urea Nitrogen 10 7-18 mg/dL Creatinine 0.7 0.5-1.0 mg/dL Glomerular Filtration Rate Calc 90 >90 mL/min Random Glucose 131 #H 70-105 mg/dL Total Calcium 8.1 L 8.5-10.1 mg/dL Magnesium Level 2.00 1.80-2.40 mg/dL Total Bilirubin 17.7 *H 0.2-1.0 mg/dL Direct Bilirubin 14.2 *H 0.0-0.3 mg/dL Aspartate Amino Transf (AST/SGOT) 129 H 10-37 U/L Alanine Aminotransferase (ALT/SGPT) 48 12-78 U/L Alkaline Phosphatase 1544 *H 50-136 U/L Total Protein 4.7 L 6.0-8.3 g/dL Albumin 1.1 L 3.5-5.0 g/dL Lipase 6 L 16-77 U/L DIAGNOSTICS / RADIOLOGY RESULTS: [ ] PLAN NEURO: Minimize central acting medications as possible. Maintain fall precautions, adequate lighting during the day PULMONARY: Supplemental 02 as needed. Maintain aspiration precautions at all times CARDIOVASCULAR: Follow hemodynamics. Vital signs per facility protocol GI & NUTRITION: Continue with nutritional support.- advance to bland diet GI on case s/p drain placement and will need biopsy of Mass. Further clarification to be obtained from IR team . Continue stool softeners and laxatives as needed. Discussed malnutrtion recommend PpN for now and marinol Alternative means of nutrition will have to be decided if not tolerating KIDNEYS & ELECTROLYTES: Strict monitoring of intake, output and overall fluid balance. Avoid nephrotoxic medications to the extent possible. Medications to be dosed according to renal function. Monitor electrolytes and replace as needed ENDOCRINE: Maintain blood glucose between 100-180 at all times. Hypoglycemia protocol in place INFECTIOUS DISEASE: Trend temperature, WBC and procalcitonin level Follow cultures, deescalate antibiotics as soon as possible. Panculture if new onset fever ONCOLOGY/HEMATOLOGY/COAGULATION: Monitor for s/s of bleeding Monitor hemoglobin, coagulation studies as needed SKIN: Pressure ulcer prevention per facility protocol Specialty mattress ORTHO/REHAB: Continue PT/OT Prophylaxis: Continue GI and DVT prophylaxis Code Status: DNR - WITNESSED BY BEDSIDE MIGEL ROLDAN Disposition: Home once improved Other: Total patient care time: 45 minutes LYNDSEY NGUYEN Oct 04, 2024 11:30
[2024-10-04] MEDS ORDERED: IODIXANOL 320 MG/ML 100 ML VIAL ONE (12:42)
[2024-10-04] MEDS ORDERED: LIDOCAINE HCL 400MG/20ML VIAL ONE (12:42)
[2024-10-04] MEDS ORDERED: HEParin-NS 1,000 UNIT/500 ML 1,000 ML IV ONE (12:42)
[2024-10-04] MEDS ORDERED: GLYCOPYRROLATE 0.2 MG/ML 5 ML VIAL ONE (12:49)
[2024-10-04] MEDS ORDERED: MIDAZOLAM HCL 1 MG/ML 2ML VIAL ONE (12:49)
[2024-10-04] MEDS ORDERED: FENTanyl CITRate PF 50 MCG/1 ML 2ML VIAL ONE (12:49)
[2024-10-04] MEDS ORDERED: proPOFol 10 MG/ML 20ML VIAL IV ONE (12:49)
[2024-10-04] MEDS ORDERED: rocuRONium bROMide 10MG/1ML 5ML VL ONE ×2 (12:50→14:27)
[2024-10-04] MEDS ORDERED: LIDOCAINE PF 100MG/5ML (2%) SYRINGE 5ML ONE (12:51)
[2024-10-04] MEDS ORDERED: NEOSTIGMINE METHYLSULFATE 1MG/ML IV ONE (13:08)
[2024-10-04] MEDS ORDERED: ceFAZolin SODIUM 1 GM VIAL ONE (13:37)
--- NOTE | 2024-10-04 13:50 | NUR ---
note Do not renew PPN until further order, patient to start intaking po starting tomorrow as per Sara PARRA
--- NOTE | 2024-10-04 15:45 | NUR ---
note patient returned to room 319 at this time bp-114/54, hr-83, sp02- 98% on 2l via nasal canula, pt AAOx2, patient oriented to self and place, family at bedside, pt lethargic but awake
[2024-10-04] MEDS: ketOROlac 15MG/ML VIAL (15MG/ML) ONE (16:14)
[2024-10-04] MEDS: ketOROlac 15MG/ML VIAL (15MG/ML) IV ONE (16:14)
[2024-10-04] MEDS ORDERED: MEROPENEM 1 GM in 0.9%NACL 100ML 100 ML IVPB SCH (16:30)
[2024-10-04] MEDS: MEROPENEM 1 GM VIAL IVPB SCH (17:06)
--- NOTE | 2024-10-04 18:40 | PN ---
The patient is a 74-year-old female with history of hyperlipidemia, diabetes mellitus, hypertension, who also has history of recent influenza B infection and polycystic liver disease and who is now status post laparoscopic cholecystectomy and repair of ventral hernia with omentectomy and who is admitted with jaundice and also has elevated liver chemistries and weight loss with abnormal abdominal imaging with ultrasound and CT scan showing biliary ductal dilation and MRCP showing the same but also tumor at the liver hilum at the confluence consistent with cholangiocarcinoma for which GI evaluation and management are sought. According to the patient, she has no abdominal pain, nausea, vomiting, melena or gross GI bleed. She continues with chronic constipation. The patient admits that over the last 3 days, she has noted dark urine and lower extremity swelling, also episodes of nausea, vomiting over the last 1 week. Evaluation by her PCP showed elevated bilirubin and elevated alkaline phosphatase and liver transaminases, so she was advised hospital admission for further evaluation and management. On presentation to the hospital, CT scan and ultrasound showed biliary ductal dilation as noted above with extrahepatic duct dilated. The CBD was also dilated at 15 mm. Ascites was also noted. CT scan revealed anasarca and multiple hepatic cysts also. MRCP however, does reveal soft tissue mass at the liver hilum confluence consistent with cholangiocarcinoma as noted above. The patient has no family history of colon cancer, stomach cancer, IBD or liver disease. The patient's pathology from her last surgery was not available for review at this time. Patient actually evaluated by GI. There is a plan for IR for percutaneous drainage tube was made the brushing of the common bile duct. PHYSICAL EXAMINATION: GENERAL: The patient is a 74-year-old female who appears her stated age, seen resting in bed, notable jaundiced but in no acute respiratory distress. VITAL SIGNS: Blood pressure 109/52, heart rate 87, respirations 18, temperature 97.9 degrees Fahrenheit. SKIN: Warm, dry, jaundiced. HEENT: The patient's head is normocephalic, atraumatic. Pupils reactive, sclerae nonicteric. Oral mucosa was moist, no obvious lesion, no blood noted. Nasal mucosa showed no epistaxis, septal deviation or perforation. NECK: No obvious masses, no jugular venous distention, no lymphadenopathy, no thyromegaly. LUNGS: Clear to auscultation bilaterally. HEART: S1, S2. No obvious murmurs, rubs or gallops. ABDOMEN: Symmetric, soft with scar of recent laparoscopic cholecystectomy noted. Mesh is palpable in her abdomen, towards the left of the umbilicus. No tenderness noted in her abdomen. No masses palpable. EXTREMITIES: No cyanosis, clubbing or edema. RECTAL: Deferred. IMPRESSION: 1. Jaundice with MRCP showing possibility of soft tissue mass 2.6 x 3.6 cm in the liver hilum consistent with possible cholangiocarcinoma. We do not have any pathology report There is a plan for IR for percutaneous drainage tube was made the brushing of the common bile duct. 2. Anemia 3. Diabetes mellitus 4. Hypertension 5. Significant weight loss 6. Status post cholecystectomy. We do not have the final report of pathology from there. Plan 1. MRCP showing 2.6 x 3.6 soft tissue mass in the liver hilum consistent with possibly cholangiocarcinoma. We need tissue biopsy. There is a plan for IR for percutaneous drainage tube was made the brushing of the common bile duct. 2. I have long discussion with the regarding the plan of care. Of this patient have percutaneous drainage tube in place and stable she could be discharged so she can follow-up with us as outpatient. 3. I did discuss the case with liver surgeon Dr. Valverde. There would like to see this patient in outpatient settings and if she needs surgery or any procedure he could do he will do it later on. Vitals/Labs Vital Signs Date Time Temp Pulse Resp B/P (MAP) Pulse Ox O2 Delivery O2 Flow Rate FiO2 10/04/24 17:40 99.0 69 17 97/45 99 Nasal Cannula 2.0 10/04/24 11:22 21 Laboratory Tests 10/04/24 05:16 Medications Current Medications Sodium Chloride 1,000 ml @ 50 mls/hr Q20H IV Last administered on 10/03/24at 11:38; Start 10/01/24 at 19:00; Stop 10/31/24 at 18:59 Albuterol Sulfate 2.5 mg [id number] PRN IH; Start 10/01/24 at 19:30; Stop 10/31/24 at 19:29 Ondansetron HCl 4 mg Q6H PRN IVP Last administered on 10/01/24at 21:59; Start 10/01/24 at 19:30; Stop 10/31/24 at 19:29 Hydralazine HCl 10 mg Q6H PRN IV; Start 10/01/24 at 19:30; Stop 10/31/24 at 19:29 Labetalol HCl 10 mg Q2H PRN IV; Start 10/01/24 at 19:30; Stop 10/31/24 at 19:29 Dextrose 50 ml AD PRN IV; Start 10/01/24 at 19:30; Stop 10/31/24 at 19:29 Glucagon 1 mg AD PRN IM; Start 10/01/24 at 19:30; Stop 10/31/24 at 19:29 Insulin Human Regular INSULIN SLIDING SCAL... Q6H6 SQ; Start 10/02/24 at 00:00; Stop 11/01/24 at 00:00 Magnesium Sulfate 50 ml @ 0 mls/hr PROTOCOL PRN IV Last administered on 10/02/24at 06:02; Start 10/01/24 at 19:30; Stop 10/31/24 at 19:29 Lactated Ringer's 594 ml @ 198 mls/hr ONCE ONCE IV Last administered on 10/01/24at 21:21; Start 10/01/24 at 19:30; Stop 10/01/24 at 22:29; Status DC Gadoterate Meglumine 10 mmol STK-MED ONCE IV; Start 10/02/24 at 14:28; Stop 10/02/24 at 14:28; Status DC Lorazepam 0.5 mg Q12H PRN IVP; Start 10/03/24 at 13:30; Stop 10/10/24 at 13:29 Amino Acids/ Electrolytes/ Dextrose 1,000 ml @ 83 mls/hr Q12H IV; Start 10/03/24 at 20:00; Stop 10/03/24 at 15:20; Status DC Amino Acids/ Electrolytes/ Dextrose 2,000 ml @ 83 mls/hr ONCE ONCE IV Last administered on 10/03/24at 21:22; Start 10/03/24 at 20:00; Stop 10/04/24 at 20:05 Dronabinol 2.5 mg BID PO Last administered on 10/04/24at 09:51; Start 10/03/24 at 21:00; Stop 10/10/24 at 20:59 Lidocaine HCl 20 ml STK-MED ONCE .ROUTE; Start 10/04/24 at 12:42; Stop 10/04/24 at 12:42; Status DC Iodixanol 100 ml STK-MED ONCE .ROUTE; Start 10/04/24 at 12:42; Stop 10/04/24 at 12:43; Status DC Heparin Sodium/ Sodium Chloride 1,000 ml @ As Directed STK-MED ONCE IV; Start 10/04/24 at 12:42; Stop 10/04/24 at 12:43; Status DC Fentanyl Citrate 100 mcg STK-MED ONCE .ROUTE; Start 10/04/24 at 12:49; Stop 10/04/24 at 12:49; Status DC Midazolam HCl 2 mg STK-MED ONCE .ROUTE; Start 10/04/24 at 12:49; Stop 10/04/24 at 12:49; Status DC Propofol 200 mg STK-MED ONCE IV; Start 10/04/24 at 12:49; Stop 10/04/24 at 12:49; Status DC Glycopyrrolate 1 mg STK-MED ONCE .ROUTE; Start 10/04/24 at 12:49; Stop 10/04/24 at 12:50; Status DC Rocuronium [place] 50 mg STK-MED ONCE .ROUTE; Start 10/04/24 at 12:50; Stop 10/04/24 at 12:50; Status DC Lidocaine HCl 100 mg STK-MED ONCE .ROUTE; Start 10/04/24 at 12:51; Stop 10/04/24 at 12:51; Status DC Cefazolin Sodium 1 gm STK-MED ONCE .ROUTE; Start 10/04/24 at 13:37; Stop 10/04/24 at 13:38; Status DC Rocuronium [place] 50 mg STK-MED ONCE .ROUTE; Start 10/04/24 at 14:27; Stop 10/04/24 at 14:28; Status DC Ketorolac Tromethamine 15 mg ONCE ONCE IV Last administered on 10/04/24at 16:14; Start 10/04/24 at 16:30; Stop 10/04/24 at 16:31; Status DC Ketorolac Tromethamine 15 mg STK-MED ONCE .ROUTE; Start 10/04/24 at 16:11; Stop 10/04/24 at 16:11; Status DC Meropenem 1 gm/ Sodium Chloride 100 ml @ 33.333 mls/ hr Q8H IVPB; Start 10/04/24 at 16:30; Stop 10/04/24 at 16:30; Status DC Meropenem 1 gm Q8H IVPB Last administered on 10/04/24at 17:06; Start 10/04/24 at 17:00; Stop 10/14/24 at 16:59 DEMETRICE BLANKENSHIP MD Oct 04, 2024 18:40
--- NOTE | 2024-10-04 18:50 | NUR ---
Note this magazine writer noticed patient decreased bp during post op vitals, bp 89/50, HR- 73, ow43-622% on 2l via nc, initiated 500cc standing order bolus of normal saline now, pt aaox4, post bolus bp 104/49, hr 71, patient states feeling much better
[2024-10-05] VITALS: BP 97/55; PULSE 83; RESP 16; TEMP 97.5
[2024-10-05 04:00] VITALS: BP 119/57; PULSE 104; RESP 20; TEMP 98.7
[2024-10-05 05:32] LABS: BASOPHILS # (AUTO) 0.03 K/uL (0.00-0.20); BASOPHILS % (AUTO) 0.4 % (0.0-5.0); EOSINOPHILS # (AUTO) 0.06 K/uL (0.00-0.70); EOSINOPHILS % (AUTO) 0.7 % (0.0-8.0); HEMATOCRIT 27.9 % (36-48); IMMATURE GRANULOCYTE ABSOLUTE 0.07 K/uL (0-1); LYMPHOCYTES # (AUTO) 0.6 K/uL (1.0-4.8); LYMPHOCYTES % (AUTO) 6.9 % (21.0-51.0); MEAN CORPUSCULAR HEMOGLOBIN 35.4 pg (27.0-33.0); MEAN CORPUSCULAR VOLUME 107.3 fL (79-99); MONOCYTES # (AUTO) 0.4 K/uL (0.1-1.0); MONOCYTES % (AUTO) 4.6 % (3.0-13.0); NEUTROPHILS # (AUTO) 7.1 K/uL (1.8-7.7); NEUTROPHILS % (AUTO) 86.6 % (40.0-77.0); PLATELET COUNT (AUTO) 274 K/uL (130-400); RED CELL DISTRIBUTION WIDTH 16.5 % (11.0-15.5); WHITE BLOOD COUNT (AUTO) 8.2 K/uL (4.8-10.8)
[2024-10-05 06:05] LABS: ALBUMIN 1.3 g/dL (3.5-5.0); CREATININE 0.7 mg/dL (0.5-1.0); TOTAL PROTEIN, SERUM 4.9 g/dL (6.0-8.3)
[2024-10-05 08:00] VITALS: BP 111/57; PULSE 93; RESP 20; TEMP 93.8
[2024-10-05 12:26] VITALS: BP 107/52; PULSE 94; RESP 18; TEMP 98.4
[2024-10-05 16:00] VITALS: BP 104/54; PULSE 100; RESP 20; TEMP 98.7
--- NOTE | 2024-10-05 16:31 | PN ---
[facility] PROGRESS NOTE Date Patient Seen: Oct 05, 2024 Time of Visit: 16:31 Supervising Physician: Reji Pal MD Primary Care Physician: [Dr. Mcallister ] Outpatient Specialists: [ ] Inpatient Consults: [GI: Dr. 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 Davenport Large Ventral Hernia with concern for strangulated omentum s/p ventral hernia repair with omentectomy 09/06/[address] Davenport Acute diverticulitis, s/p antibiotics and colonoscopy 09/02/[address] Bettencourt Recent HX of Intractable abdominal pain with associated nausea and vomiting worsening over three-month with unintentional weight loss Polycystic liver disease Anemia of chronic disease Recent electrolyte derangement (hyponatremia, hypochloremia) Diabetes mellitus type 2 Chronic constipation History of total abdominal hysterectomy with bilateral salpingo-oophorectomy for complications related to endometriosis. History of liver cyst diagnosed in 1998 Vitamin-D deficiency Recent UTI in May, [id number] protein calorie malnutrition-POA HX of non-obstructive nephrolithiasis INTERVAL HISTORY: 10/04- Patient was seen and examined today by me at bedside with in room. The patient is very weak, deconditioned with obvious failure to thrive. The patient was jaundiced with liver enzymes elevated bilirubin MRCP has been done revealing a soft tissue mass concerning for cholangiocarcinoma measuring 2.6 x 3.4 cm. LFts continue elevated , bilirubin is 17.7, direct bilirubin is 14.2. AST 129 ALT 48 , with alkaline phosphatase at 1544. Alpha fetoprotein is normal, CEA is elevated at 46.3, CA 19 nine is elevated at 37, CA125 is elevated at 317. She was set to undergo Biopsy and Drain placement today however did receive a call later in the day that biopsy was not successful but 2 drains were placed. Radiologist did recommend Iv antibiotics and will reattempt biopsy, we will need clarification from Ir and Dr. Bartlett if this is to be done during this admission. Dr. Corbin did see the patient with me at bedside and is recommendin g follow up outpatient once drain and biopsy has been done. He did speak to Dr. Valverde about her case and she will be evaluated by him outpatient for possible surgical resection if she is a candidate ,if not then chemo-radiation may be an option Unfortunately she has not tolerated much PO and will need to get better from this prior to proceeding with more invasive interventions. She does not want PEG tube , at this time we have her on PPN and Marinol and soft diet. We can wean down PPN as diet is advanced. 10/05- Patient awake alert and oriented x 3. No major overnight events. Pt tolerating clear liquids minimally. she continues Jaundice s/p abdominal drain placement to rt and lt side of abdomen, Patient and at bedside. Informed him that pathology reports were resulted for Gall Bladder and Incarcerated Omentum, excision that was done on 09/06/2024. Results faxed to Dr Bartlett: Omentectomy tissue was positive for adenocarcinoma consistent with pancreaticobiliary origin. Pt and awaiting Dr Bartlett recommendations and prognosis. For now we will continue to treat s/s such as nausea with PRN medication and advance diet as tolerated. CBC similar to yesterday. Kidneys are well Cr 0.7, GFR 90 Total bili increasing 15 today, ast 89, Alk Phosphatase 1365, decreasing but still elevated. albumin 1.3. REVIEW OF SYSTEMS: 12 point ROS reviewed with patient. Pertinent positives mentioned above. Otherwise negative. PHYSICAL EXAM: GENERAL: alert, weak, awake oriented x 3, debilitated, deconditioned, jaundiced HEENT: EOMI, Icteric sclera, dry mucosa, dry tongue NECK: Supple, no JVD, trachea midline LUNGS: Clear breath sounds bilaterally. No wheezes HEART: Regular rate and rhythm. Normal S1 and S2, without murmurs, Tachycardia ABD: Abdomen soft, nontender. Bowel sounds present, Jaundiced, bilateral abdominal sides were swollen EXT: No clubbing or cyanosis, 2+ pitting edema on BLE, NEURO: Alert and oriented to person, follows commands Vital Signs (last 8hr) Date Time Temp Pulse Resp B/P (MAP) Pulse Ox O2 Delivery O2 Flow Rate FiO2 10/05/24 12:26 98.4 94 18 107/52 95 Room Air LABS: Hematology Labs: Test 10/05/24 05:15 Range/Units White Blood Count 8.2 # 4.8-10.8 K/uL Red Blood Count 2.60 L 4.00-5.50 MIL/uL Hemoglobin 9.2 L 12.0-16.0 g/dL Hematocrit 27.9 L 36-48 % Mean Corpuscular Volume 107.3 H 79-99 fL Mean Corpuscular Hemoglobin 35.4 H 27.0-33.0 pg Mean Corpuscular Hemoglobin Concent 33.0 32.0-36.0 g/dL Red Cell Distribution Width 16.5 H 11.0-15.5 % Platelet Count 274 130-400 K/uL Mean Platelet Volume 8.1 7.5-10.5 fL Immature Granulocyte % (Auto) 0.8 0-1 % Neutrophils (%) (Auto) 86.6 H 40.0-77.0 % Lymphocytes (%) (Auto) 6.9 L 21.0-51.0 % Monocytes (%) (Auto) 4.6 3.0-13.0 % Eosinophils (%) (Auto) 0.7 0.0-8.0 % Basophils (%) (Auto) 0.4 0.0-5.0 % Neutrophils # (Auto) 7.1 1.8-7.7 K/uL Lymphocytes # (Auto) 0.6 L 1.0-4.8 K/uL Monocytes # (Auto) 0.4 0.1-1.0 K/uL Eosinophils # (Auto) 0.06 0.00-0.70 K/uL Basophils # (Auto) 0.03 0.00-0.20 K/uL Absolute Immature Granulocyte (auto 0.07 0-1 K/uL Nucleated Red Blood Cells 0.0 0.0-0.19 % White Cell Morphology Comment See comments Chemistry Labs: Test 10/05/24 11:18 10/05/24 05:15 10/04/24 05:16 Range/Units Whole Blood Glucose 119 H 70-110 MG/DL Sodium Level 137 136-145 mmol/L Potassium Level 4.0 3.5-5.1 mmol/L Chloride Level 106 101-111 mmol/L Carbon Dioxide Level 24 21-32 mmol/L Blood Urea Nitrogen 14 7-18 mg/dL Creatinine 0.7 0.5-1.0 mg/dL Glomerular Filtration Rate Calc 90 >90 mL/min Random Glucose 117 H 70-105 mg/dL Total Calcium 8.2 L 8.5-10.1 mg/dL Magnesium Level 2.00 1.80-2.40 mg/dL Total Bilirubin 15.0 H 0.2-1.0 mg/dL Aspartate Amino Transf (AST/SGOT) 89 H 10-37 U/L Alanine Aminotransferase (ALT/SGPT) 33 # 12-78 U/L Alkaline Phosphatase 1365 *H 50-136 U/L Total Protein 4.9 L 6.0-8.3 g/dL Albumin 1.3 L 3.5-5.0 g/dL Direct Bilirubin 14.2 *H 0.0-0.3 mg/dL DIAGNOSTICS / RADIOLOGY RESULTS: Signed PATIENT: SIMONE FRANKS MR#: [id number] : 1950 SEX: F AGE: 74 LOCATION: [facility] ORDER 3 STATUS: ADM IN REPORT#: [id number] SERVICE 7 REASON: OBSTRUCTING HEPATIC TUMOR TO RT AND LT BILIARY DUCTS ORDERING PHYSICIAN: KAYODE BETTENCOURT MD PROCEDURE: CATH PROC - CLERICAL ADJUSTER PROCEDURE REQUEST CLERICAL ADJUSTER PROCEDURE REQUEST PTC,Biliary Drain Placement INDICATION: OBSTRUCTING HEPATIC TUMOR TO RT AND LT BILIARY DUCTS SEAT SCOOPER MACHINE: Dr. Coley PROCEDURE DETAILS: Informed consent obtained from the patient following explanation of risk, benefits, complication is. Timeout performed by catheter lab nursing staff. General anesthesia performed by the department of anesthesia. 20 mL of 2% lidocaine subcutaneous also utilized for local anesthesia. The abdomen was prepped and draped in sterile fashion. Following local anesthesia, percutaneous access gained into the dilated right biliary ducts. Following guidewire placement under ultrasound guidance, the remainder the procedure was performed under fluoroscopy. Needle was removed and guidewire remained in place. Attention was then turned to the left dilated biliary ducts. Following local anesthesia with 10 mL of 1% lidocaine subcutaneous, access gained into the left dilated biliary ducts under direct ultrasound guidance. Following guidewire placement, the remainder the procedure was performed under fluoroscopy. AccuStick system was then passed over the guidewire advanced into the dilated biliary ducts. The inner cannulas were removed. Through the outer cannula stiff shaft Glidewire was passed into the biliary ducts attempts to traverse the obstructive lesion. This was unsuccessful. 8 Bulgarian APDL catheter was passed over the guidewire and coiled within the central portion of the right biliary ducts. Catheter was connected to external drainage bag. Retention suture and sterile dressing applied. Attention was then made to the left biliary ducts. AccuStick was then passed over the guidewire advanced into the dilated left biliary ducts. The inner cannulas were removed. Guidewire passed through the access sheath into the dilated biliary ductal system. Utilizing directional catheter, attempts were made to obtain access beyond the obstructive point. This was unsuccessful. Catheter then exchanged over guidewire for a 8 Bulgarian APDL drainage catheter. This vessel the guidewire coiled within the central portion of the biliary ducts. Catheter was connected to external drainage bag. Retention suture and sterile dressing applied. Specimen submitted for Gram stain and cultures. Well patient tolerated procedure well without evidence of complication. Patient transferred to PACU in stable condition. Imaging guidance for access: Ultrasound with permanent image storage Imaging guidance for intervention: Fluoroscopy with permanent image storage Intraprocedural or immediate post-procedural complications: None Total fluoroscopic time: 12.0 minutes. IMPRESSION: Percutaneous cholangiogram demonstrating High-grade obstructive lesion of the confluence of left and right biliary ducts. Access beyond the obstruction cannot be obtained. 8 Bulgarian APDL drainage catheter was placed within the left and right biliary ducts respectively for external drainage. Repeat attempt to cross the obstructive lesion at the confluence of left and right biliary ductal will be made. Specimen submitted for cytology, Gram stain and cultures. DICTATED BY: MIGUEL A COLEY DO DATE: 10/05/24 173 ELECTRONICALLY SIGNED BY: MIGUEL A COLEY DO DATE: 10/05/24 1748 PLAN PT eval and treat There is a plan for IR for percutaneous drainage tube was made the brushing of the common bile duct. Per oncology : stage IV pancreaticobiliary cancer. The patient is not surgical candidate. Only 1 option is to do palliative chemotherapy treatment the other option actually to do hospice. It seems they are refusing hospice at this time. If the patient stable she could be discharged to follow-up with me in the next week or 2 then decide regarding the plan of care. PT is DNR GI soft [place] diet follow LFT's and CBC daily NEURO: Minimize central acting medications as possible. Maintain fall precautions, adequate lighting during the day PULMONARY: Supplemental 02 as needed. Maintain aspiration precautions at all times CARDIOVASCULAR: Follow hemodynamics. Vital signs per facility protocol GI & NUTRITION: Continue with nutritional support.- advance to bland diet GI on case s/p drain placement and will need biopsy of Mass. Further clarification to be obtained from IR team . Continue stool softeners and laxatives as needed. Discussed malnutrtion recommend PpN for now and marinol Alternative means of nutrition will have to be decided if not tolerating KIDNEYS & ELECTROLYTES: Strict monitoring of intake, output and overall fluid balance. Avoid nephrotoxic medications to the extent possible. Medications to be dosed according to renal function. Monitor electrolytes and replace as needed ENDOCRINE: Maintain blood glucose between 100-180 at all times. Hypoglycemia protocol in place INFECTIOUS DISEASE: Trend temperature, WBC and procalcitonin level Follow cultures, deescalate antibiotics as soon as possible. Panculture if new onset fever ONCOLOGY/HEMATOLOGY/COAGULATION: Monitor for s/s of bleeding Monitor hemoglobin, coagulation studies as needed SKIN: Pressure ulcer prevention per facility protocol Specialty mattress ORTHO/REHAB: Continue PT/OT Prophylaxis: Continue GI and DVT prophylaxis Code Status: DNR - WITNESSED BY BEDSIDE MIGEL ROLDAN Disposition: Home once improved Other: Total patient care time: 45 minutes AJITH ALEX Oct 05, 2024 16:31
--- NOTE | 2024-10-05 17:08 | PN ---
The patient is a 74-year-old female with history of hyperlipidemia, diabetes mellitus, hypertension, who also has history of recent influenza B infection and polycystic liver disease and who is now status post laparoscopic cholecystectomy and repair of ventral hernia with omentectomy and who is admitted with jaundice and also has elevated liver chemistries and weight loss with abnormal abdominal imaging with ultrasound and CT scan showing biliary ductal dilation and MRCP showing the same but also tumor at the liver hilum at the confluence consistent with cholangiocarcinoma for which GI evaluation and management are sought. According to the patient, she has no abdominal pain, nausea, vomiting, melena or gross GI bleed. She continues with chronic constipation. The patient admits that over the last 3 days, she has noted dark urine and lower extremity swelling, also episodes of nausea, vomiting over the last 1 week. Evaluation by her PCP showed elevated bilirubin and elevated alkaline phosphatase and liver transaminases, so she was advised hospital admission for further evaluation and management. On presentation to the hospital, CT scan and ultrasound showed biliary ductal dilation as noted above with extrahepatic duct dilated. The CBD was also dilated at 15 mm. Ascites was also noted. CT scan revealed anasarca and multiple hepatic cysts also. MRCP however, does reveal soft tissue mass at the liver hilum confluence consistent with cholangiocarcinoma as noted above. The patient has no family history of colon cancer, stomach cancer, IBD or liver disease. The patient's pathology from her last surgery was not available for review at this time. This patient had a previous surgery with the gallbladder resection and omentectomy. The gallbladder pathology was negative for malignancy Omentectomy tissue was positive for adenocarcinoma consistent with pancreaticobiliary origin. PHYSICAL EXAMINATION: GENERAL: The patient is a 74-year-old female who appears her stated age, seen resting in bed, notable jaundiced but in no acute respiratory distress. VITAL SIGNS: Blood pressure 109/52, heart rate 87, respirations 18, temperature 97.9 degrees Fahrenheit. SKIN: Warm, dry, jaundiced. HEENT: The patient's head is normocephalic, atraumatic. Pupils reactive, sclerae nonicteric. Oral mucosa was moist, no obvious lesion, no blood noted. Nasal mucosa showed no epistaxis, septal deviation or perforation. NECK: No obvious masses, no jugular venous distention, no lymphadenopathy, no thyromegaly. LUNGS: Clear to auscultation bilaterally. HEART: S1, S2. No obvious murmurs, rubs or gallops. ABDOMEN: Symmetric, soft with scar of recent laparoscopic cholecystectomy noted. Mesh is palpable in her abdomen, towards the left of the umbilicus. No tenderness noted in her abdomen. No masses palpable. EXTREMITIES: No cyanosis, clubbing or edema. RECTAL: Deferred. IMPRESSION: 1. 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 2. Anemia 3. Diabetes mellitus 4. Hypertension 5. Significant weight loss 6. Status post cholecystectomy. We do not have the final report of pathology from there. Plan 1. MRCP showing 2.6 x 3.6 soft tissue mass in the liver hilum consistent with possibly cholangiocarcinoma. We need tissue biopsy. There is a plan for IR for percutaneous drainage tube was made the brushing of the common bile duct. 2. I I have long discussion with the patient and her in the room. I explained to them that the patient have stage IV pancreaticobiliary cancer. The patient is not surgical candidate. Patient status post palliative percutaneous drainage tube in place. 3. I explained to the patient that she have to option only 1 option is to do palliative chemotherapy treatment the other option actually to do hospice. It seems they are refusing hospice at this time. 4. Physical therapy for evaluation and treatment. 5. If this patient stable she could be discharged to follow-up with me in the next week or 2 then decide regarding the plan of care 6. This patient should be at least DNR/DNI Vitals/Labs Vital Signs Date Time Temp Pulse Resp B/P (MAP) Pulse Ox O2 Delivery O2 Flow Rate FiO2 10/05/24 12:26 98.4 94 18 107/52 95 Room Air 10/05/24 08:00 2 28 Laboratory Tests 10/05/24 05:15 Medications Current Medications Sodium Chloride 1,000 ml @ 50 mls/hr Q20H IV Last administered on 10/05/24at 02:16; Start 10/01/24 at 19:00; Stop 10/31/24 at 18:59 Albuterol Sulfate 2.5 mg [id number] PRN IH; Start 10/01/24 at 19:30; Stop 10/31/24 at 19:29 Ondansetron HCl 4 mg Q6H PRN IVP Last administered on 10/05/24at 03:32; Start 10/01/24 at 19:30; Stop 10/31/24 at 19:29 Hydralazine HCl 10 mg Q6H PRN IV; Start 10/01/24 at 19:30; Stop 10/31/24 at 19:29 Labetalol HCl 10 mg Q2H PRN IV; Start 10/01/24 at 19:30; Stop 10/31/24 at 19:29 Dextrose 50 ml AD PRN IV; Start 10/01/24 at 19:30; Stop 10/31/24 at 19:29 Glucagon 1 mg AD PRN IM; Start 10/01/24 at 19:30; Stop 10/31/24 at 19:29 Insulin Human Regular INSULIN SLIDING SCAL... Q6H6 SQ; Start 10/02/24 at 00:00; Stop 11/01/24 at 00:00 Magnesium Sulfate 50 ml @ 0 mls/hr PROTOCOL PRN IV Last administered on 10/02/24at 06:02; Start 10/01/24 at 19:30; Stop 10/31/24 at 19:29 Lactated Ringer's 594 ml @ 198 mls/hr ONCE ONCE IV Last administered on 10/01/24at 21:21; Start 10/01/24 at 19:30; Stop 10/01/24 at 22:29; Status DC Gadoterate Meglumine 10 mmol STK-MED ONCE IV; Start 10/02/24 at 14:28; Stop 10/02/24 at 14:28; Status DC Lorazepam 0.5 mg Q12H PRN IVP; Start 10/03/24 at 13:30; Stop 10/10/24 at 13:29 Amino Acids/ Electrolytes/ Dextrose 1,000 ml @ 83 mls/hr Q12H IV; Start 10/03/24 at 20:00; Stop 10/03/24 at 15:20; Status DC Amino Acids/ Electrolytes/ Dextrose 2,000 ml @ 83 mls/hr ONCE ONCE IV Last administered on 10/03/24at 21:22; Start 10/03/24 at 20:00; Stop 10/04/24 at 20:05; Status DC Dronabinol 2.5 mg BID PO Last administered on 10/05/24at 08:24; Start 10/03/24 at 21:00; Stop 10/10/24 at 20:59 Lidocaine HCl 20 ml STK-MED ONCE .ROUTE; Start 10/04/24 at 12:42; Stop 10/04/24 at 12:42; Status DC Iodixanol 100 ml STK-MED ONCE .ROUTE; Start 10/04/24 at 12:42; Stop 10/04/24 at 12:43; Status DC Heparin Sodium/ Sodium Chloride 1,000 ml @ As Directed STK-MED ONCE IV; Start 10/04/24 at 12:42; Stop 10/04/24 at 12:43; Status DC Fentanyl Citrate 100 mcg STK-MED ONCE .ROUTE; Start 10/04/24 at 12:49; Stop 10/04/24 at 12:49; Status DC Midazolam HCl 2 mg STK-MED ONCE .ROUTE; Start 10/04/24 at 12:49; Stop 10/04/24 at 12:49; Status DC Propofol 200 mg STK-MED ONCE IV; Start 10/04/24 at 12:49; Stop 10/04/24 at 12:49; Status DC Glycopyrrolate 1 mg STK-MED ONCE .ROUTE; Start 10/04/24 at 12:49; Stop 10/04/24 at 12:50; Status DC Rocuronium Ethel 50 mg STK-MED ONCE .ROUTE; Start 10/04/24 at 12:50; Stop 10/04/24 at 12:50; Status DC Lidocaine HCl 100 mg STK-MED ONCE .ROUTE; Start 10/04/24 at 12:51; Stop 10/04/24 at 12:51; Status DC Cefazolin Sodium 1 gm STK-MED ONCE .ROUTE; Start 10/04/24 at 13:37; Stop 10/04/24 at 13:38; Status DC Rocuronium Ethel 50 mg STK-MED ONCE .ROUTE; Start 10/04/24 at 14:27; Stop 10/04/24 at 14:28; Status DC Ketorolac Tromethamine 15 mg ONCE ONCE IV Last administered on 10/04/24at 16:14; Start 10/04/24 at 16:30; Stop 10/04/24 at 16:31; Status DC Ketorolac Tromethamine 15 mg STK-MED ONCE .ROUTE; Start 10/04/24 at 16:11; Stop 10/04/24 at 16:11; Status DC Meropenem 1 gm/ Sodium Chloride 100 ml @ 33.333 mls/ hr Q8H IVPB; Start 10/04/24 at 16:30; Stop 10/04/24 at 16:30; Status DC Meropenem 1 gm Q8H IVPB Last administered on 10/05/24at 16:24; Start 10/04/24 at 17:00; Stop 10/14/24 at 16:59 Neostigmine Methylsulfate 10 mg STK-MED ONCE IV; Start 10/04/24 at 13:08; Stop 10/05/24 at 09:33; Status DC DEMETRICE BLANKENSHIP MD Oct 05, 2024 17:08
--- NOTE | 2024-10-05 17:33 | PRN ---
US PERC DRN, LIVER W IMG IR REASON: DILATED IHBD COMPARISON: None TECHNIQUE: Ultrasound-guided biliary access. FINDINGS: Dilated central biliary ducts. PROCEDURE: Informed consent obtained from the patient following explanation of risk, benefits, complications. Timeout performed by catheter lab nursing staff. Patient received general anesthesia performed by the department of anesthesia. Patient also received 10 mL of 1% lidocaine subcutaneous. Abdomen was prepped and draped in sterile fashion. Following local anesthesia, pertains access gained into the dilated right biliary ducts under direct ultrasound guidance. Only guidewire placement, attention was made to the dilated left hepatic ducts. Under direct ultrasound guidance, 20-gauge needle was passed into the left biliary duct. Guidewire was placed under ultrasound. The remainder the procedure was performed under fluoroscopy. IMPRESSION: Ultrasound guidance with percutaneous access into the right and left biliary ductal system. The remainder of the procedure was performed under fluoroscopic guidance. MIGUEL A NORTON DO Oct 05, 2024 17:33
--- NOTE | 2024-10-05 17:45 | PRN ---
PERSONNEL TECHNICIAN PROCEDURE REQUEST PTC,Biliary Drain Placement INDICATION: OBSTRUCTING HEPATIC TUMOR TO RT AND LT BILIARY DUCTS ELECTRICAL CONTACTS ADJUSTER: Dr. Coley PROCEDURE DETAILS: Informed consent obtained from the patient following explanation of risk, benefits, complication is. Timeout performed by catheter lab nursing staff. General anesthesia performed by the department of anesthesia. 20 mL of 2% lidocaine subcutaneous also utilized for local anesthesia. The abdomen was prepped and draped in sterile fashion. Following local anesthesia, percutaneous access gained into the dilated right biliary ducts. Following guidewire placement under ultrasound guidance, the remainder the procedure was performed under fluoroscopy. Needle was removed and guidewire remained in place. Attention was then turned to the left dilated biliary ducts. Following local anesthesia with 10 mL of 1% lidocaine subcutaneous, access gained into the left dilated biliary ducts under direct ultrasound guidance. Following guidewire placement, the remainder the procedure was performed under fluoroscopy. AccuStick system was then passed over the guidewire advanced into the dilated biliary ducts. The inner cannulas were removed. Through the outer cannula stiff shaft Glidewire was passed into the biliary ducts attempts to traverse the obstructive lesion. This was unsuccessful. 8 [place] APDL catheter was passed over the guidewire and coiled within the central portion of the right biliary ducts. Catheter was connected to external drainage bag. Retention suture and sterile dressing applied. Attention was then made to the left biliary ducts. AccuStick was then passed over the guidewire advanced into the dilated left biliary ducts. The inner cannulas were removed. Guidewire passed through the access sheath into the dilated biliary ductal system. Utilizing directional catheter, attempts were made to obtain access beyond the obstructive point. This was unsuccessful. Catheter then exchanged over guidewire for a 8 [place] APDL drainage catheter. This vessel the guidewire coiled within the central portion of the biliary ducts. Catheter was connected to external drainage bag. Retention suture and sterile dressing applied. Specimen submitted for Gram stain and cultures. Well patient tolerated procedure well without evidence of complication. Patient transferred to PACU in stable condition. Imaging guidance for access: Ultrasound with permanent image storage Imaging guidance for intervention: Fluoroscopy with permanent image storage Intraprocedural or immediate post-procedural complications: None Total fluoroscopic time: 12.0 minutes. IMPRESSION: Percutaneous cholangiogram demonstrating High-grade obstructive lesion of the confluence of left and right biliary ducts. Access beyond the obstruction cannot be obtained. 8 [place] APDL drainage catheter was placed within the left and right biliary ducts respectively for external drainage. Repeat attempt to cross the obstructive lesion at the confluence of left and right biliary ductal be made. Specimen submitted for cytology, Gram stain and cultures. MIGUEL A COLEY DO Oct 05, 2024 17:45
--- NOTE | 2024-10-05 17:48 | HMCIMG ---
REED FIXER PROCEDURE REQUEST PTC,Biliary Drain Placement INDICATION: OBSTRUCTING HEPATIC TUMOR TO RT AND LT BILIARY DUCTS DIRECTOR OF FINANCE: Dr. Coley PROCEDURE DETAILS: Informed consent obtained from the patient following explanation of risk, benefits, complication is. Timeout performed by catheter lab nursing staff. General anesthesia performed by the department of anesthesia. 20 mL of 2% lidocaine subcutaneous also utilized for local anesthesia. The abdomen was prepped and draped in sterile fashion. Following local anesthesia, percutaneous access gained into the dilated right biliary ducts. Following guidewire placement under ultrasound guidance, the remainder the procedure was performed under fluoroscopy. Needle was removed and guidewire remained in place. Attention was then turned to the left dilated biliary ducts. Following local anesthesia with 10 mL of 1% lidocaine subcutaneous, access gained into the left dilated biliary ducts under direct ultrasound guidance. Following guidewire placement, the remainder the procedure was performed under fluoroscopy. AccuStick system was then passed over the guidewire advanced into the dilated biliary ducts. The inner cannulas were removed. Through the outer cannula stiff shaft Glidewire was passed into the biliary ducts attempts to traverse the obstructive lesion. This was unsuccessful. 8 [place] APDL catheter was passed over the guidewire and coiled within the central portion of the right biliary ducts. Catheter was connected to external drainage bag. Retention suture and sterile dressing applied. Attention was then made to the left biliary ducts. AccuStick was then passed over the guidewire advanced into the dilated left biliary ducts. The inner cannulas were removed. Guidewire passed through the access sheath into the dilated biliary ductal system. Utilizing directional catheter, attempts were made to obtain access beyond the obstructive point. This was unsuccessful. Catheter then exchanged over guidewire for a 8 [place] APDL drainage catheter. This vessel the guidewire coiled within the central portion of the biliary ducts. Catheter was connected to external drainage bag. Retention suture and sterile dressing applied. Specimen submitted for Gram stain and cultures. Well patient tolerated procedure well without evidence of complication. Patient transferred to PACU in stable condition. Imaging guidance for access: Ultrasound with permanent image storage Imaging guidance for intervention: Fluoroscopy with permanent image storage Intraprocedural or immediate post-procedural complications: None Total fluoroscopic time: 12.0 minutes. IMPRESSION: Percutaneous cholangiogram demonstrating High-grade obstructive lesion of the confluence of left and right biliary ducts. Access beyond the obstruction cannot be obtained. 8 [place] APDL drainage catheter was placed within the left and right biliary ducts respectively for external drainage. Repeat attempt to cross the obstructive lesion at the confluence of left and right biliary ductal will be made. Specimen submitted for cytology, Gram stain and cultures.
[2024-10-05 20:00] VITALS: BP 117/53; PULSE 98; RESP 20; TEMP 98.2; O2SAT 92
[2024-10-06] VITALS: BP 111/53; PULSE 89; RESP 20; TEMP 97.7
[2024-10-06 04:00] VITALS: BP 118/58; PULSE 87; RESP 20; TEMP 97.6
[2024-10-06 05:18] LABS: BASOPHILS # (AUTO) 0.02 K/uL (0.00-0.20); BASOPHILS % (AUTO) 0.2 % (0.0-5.0); EOSINOPHILS # (AUTO) 0.09 K/uL (0.00-0.70); EOSINOPHILS % (AUTO) 0.9 % (0.0-8.0); HEMATOCRIT 22.5 % (36-48); IMMATURE GRANULOCYTE ABSOLUTE 0.15 K/uL (0-1); LYMPHOCYTES # (AUTO) 0.8 K/uL (1.0-4.8); LYMPHOCYTES % (AUTO) 8.5 % (21.0-51.0); MEAN CORPUSCULAR HEMOGLOBIN 35.8 pg (27.0-33.0); MEAN CORPUSCULAR HGB CONC 33.8 g/dL (32.0-36.0); MEAN CORPUSCULAR VOLUME 106.1 fL (79-99); MONOCYTES # (AUTO) 0.7 K/uL (0.1-1.0); MONOCYTES % (AUTO) 7.3 % (3.0-13.0); NEUTROPHILS # (AUTO) 7.9 K/uL (1.8-7.7); NEUTROPHILS % (AUTO) 81.5 % (40.0-77.0); PLATELET COUNT (AUTO) 218 K/uL (130-400); RED BLOOD CELL COUNT(AUTO) 2.12 MIL/uL (4.00-5.50); RED CELL DISTRIBUTION WIDTH 15.9 % (11.0-15.5); WHITE BLOOD COUNT (AUTO) 9.7 K/uL (4.8-10.8)
[2024-10-06 05:48] LABS: BILIRUBIN,TOTAL 12.6 mg/dL (0.2-1.0); CREATININE 0.7 mg/dL (0.5-1.0); POTASSIUM 3.5 mmol/L (3.5-5.1); TOTAL PROTEIN, SERUM 4.6 g/dL (6.0-8.3)
[2024-10-06 07:50] VITALS: O2SAT 94
[2024-10-06 08:00] VITALS: BP 109/54; PULSE 87; RESP 19; TEMP 98.2
--- NOTE | 2024-10-06 09:07 | PN ---
The patient is a 74-year-old female with history of hyperlipidemia, diabetes mellitus, hypertension, who also has history of recent influenza B infection and polycystic liver disease and who is now status post laparoscopic cholecystectomy and repair of ventral hernia with omentectomy and who is admitted with jaundice and also has elevated liver chemistries and weight loss with abnormal abdominal imaging with ultrasound and CT scan showing biliary ductal dilation and MRCP showing the same but also tumor at the liver hilum at the confluence consistent with cholangiocarcinoma for which GI evaluation and management are sought. According to the patient, she has no abdominal pain, nausea, vomiting, melena or gross GI bleed. She continues with chronic constipation. The patient admits that over the last 3 days, she has noted dark urine and lower extremity swelling, also episodes of nausea, vomiting over the last 1 week. Evaluation by her PCP showed elevated bilirubin and elevated alkaline phosphatase and liver transaminases, so she was advised hospital admission for further evaluation and management. On presentation to the hospital, CT scan and ultrasound showed biliary ductal dilation as noted above with extrahepatic duct dilated. The CBD was also dilated at 15 mm. Ascites was also noted. CT scan revealed anasarca and multiple hepatic cysts also. MRCP however, does reveal soft tissue mass at the liver hilum confluence consistent with cholangiocarcinoma as noted above. The patient has no family history of colon cancer, stomach cancer, IBD or liver disease. The patient's pathology from her last surgery was not available for review at this time. This patient had a previous surgery with the gallbladder resection and omentectomy. The gallbladder pathology was negative for malignancy Omentectomy tissue was positive for adenocarcinoma consistent with pancreaticobiliary origin. PHYSICAL EXAMINATION: GENERAL: The patient is a 74-year-old female who appears her stated age, seen resting in bed, notable jaundiced but in no acute respiratory distress. VITAL SIGNS: Blood pressure 109/52, heart rate 87, respirations 18, temperature 97.9 degrees Fahrenheit. SKIN: Warm, dry, jaundiced. HEENT: The patient's head is normocephalic, atraumatic. Pupils reactive, sclerae nonicteric. Oral mucosa was moist, no obvious lesion, no blood noted. Nasal mucosa showed no epistaxis, septal deviation or perforation. NECK: No obvious masses, no jugular venous distention, no lymphadenopathy, no thyromegaly. LUNGS: Clear to auscultation bilaterally. HEART: S1, S2. No obvious murmurs, rubs or gallops. ABDOMEN: Symmetric, soft with scar of recent laparoscopic cholecystectomy noted. Mesh is palpable in her abdomen, towards the left of the umbilicus. No tenderness noted in her abdomen. No masses palpable. EXTREMITIES: No cyanosis, clubbing or edema. RECTAL: Deferred. IMPRESSION: 1. 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 2. Anemia 3. Diabetes mellitus 4. Hypertension 5. Significant weight loss 6. Status post cholecystectomy. We do not have the final report of pathology from there. Plan 1. MRCP showing 2.6 x 3.6 soft tissue mass in the liver hilum consistent with possibly cholangiocarcinoma. We need tissue biopsy. There is a plan for IR for percutaneous drainage tube was made the brushing of the common bile duct. 2. I I have long discussion with the patient and her in the room. I explained to them that the patient have stage IV pancreaticobiliary cancer. The patient is not surgical candidate. Patient status post palliative percutaneous drainage tube in place. 3. I explained to the patient that she have to option only 1 option is to do palliative chemotherapy treatment the other option actually to do hospice. It seems they are refusing hospice at this time. 4. Physical therapy for evaluation and treatment. 5. If this patient stable she could be discharged to follow-up with me in the next week or 2 then decide regarding the plan of care 6. This patient should be at least DNR/DNI Vitals/Labs Vital Signs Date Time Temp Pulse Resp B/P (MAP) Pulse Ox O2 Delivery O2 Flow Rate FiO2 10/06/24 08:00 98.2 87 19 109/54 94 Room Air 21 10/05/24 20:00 0 Laboratory Tests 10/06/24 05:00 Medications Current Medications Sodium Chloride 1,000 ml @ 50 mls/hr Q20H IV Last administered on 10/05/24at 23:13; Start 10/01/24 at 19:00; Stop 10/31/24 at 18:59 Albuterol Sulfate 2.5 mg [id number] PRN IH; Start 10/01/24 at 19:30; Stop 10/31/24 at 19:29 Ondansetron HCl 4 mg Q6H PRN IVP Last administered on 10/06/24at 09:01; Start 10/01/24 at 19:30; Stop 10/31/24 at 19:29 Hydralazine HCl 10 mg Q6H PRN IV; Start 10/01/24 at 19:30; Stop 10/31/24 at 19:29 Labetalol HCl 10 mg Q2H PRN IV; Start 10/01/24 at 19:30; Stop 10/31/24 at 19:29 Dextrose 50 ml AD PRN IV; Start 10/01/24 at 19:30; Stop 10/31/24 at 19:29 Glucagon 1 mg AD PRN IM; Start 10/01/24 at 19:30; Stop 10/31/24 at 19:29 Insulin Human Regular INSULIN SLIDING SCAL... Q6H6 SQ; Start 10/02/24 at 00:00; Stop 11/01/24 at 00:00 Magnesium Sulfate 50 ml @ 0 mls/hr PROTOCOL PRN IV Last administered on 10/02/24at 06:02; Start 10/01/24 at 19:30; Stop 10/31/24 at 19:29 Lactated Ringer's 594 ml @ 198 mls/hr ONCE ONCE IV Last administered on 10/01/24at 21:21; Start 10/01/24 at 19:30; Stop 10/01/24 at 22:29; Status DC Gadoterate Meglumine 10 mmol STK-MED ONCE IV; Start 10/02/24 at 14:28; Stop 10/02/24 at 14:28; Status DC Lorazepam 0.5 mg Q12H PRN IVP; Start 10/03/24 at 13:30; Stop 10/10/24 at 13:29 Amino Acids/ Electrolytes/ Dextrose 1,000 ml @ 83 mls/hr Q12H IV; Start 10/03/24 at 20:00; Stop 10/03/24 at 15:20; Status DC Amino Acids/ Electrolytes/ Dextrose 2,000 ml @ 83 mls/hr ONCE ONCE IV Last administered on 10/03/24at 21:22; Start 10/03/24 at 20:00; Stop 10/04/24 at 20:05; Status DC Dronabinol 2.5 mg BID PO Last administered on 10/05/24at 08:24; Start 10/03/24 at 21:00; Stop 10/10/24 at 20:59 Lidocaine HCl 20 ml STK-MED ONCE .ROUTE; Start 10/04/24 at 12:42; Stop 10/04/24 at 12:42; Status DC Iodixanol 100 ml STK-MED ONCE .ROUTE; Start 10/04/24 at 12:42; Stop 10/04/24 at 12:43; Status DC Heparin Sodium/ Sodium Chloride 1,000 ml @ As Directed STK-MED ONCE IV; Start 10/04/24 at 12:42; Stop 10/04/24 at 12:43; Status DC Fentanyl Citrate 100 mcg STK-MED ONCE .ROUTE; Start 10/04/24 at 12:49; Stop 10/04/24 at 12:49; Status DC Midazolam HCl 2 mg STK-MED ONCE .ROUTE; Start 10/04/24 at 12:49; Stop 10/04/24 at 12:49; Status DC Propofol 200 mg STK-MED ONCE IV; Start 10/04/24 at 12:49; Stop 10/04/24 at 12:49; Status DC Glycopyrrolate 1 mg STK-MED ONCE .ROUTE; Start 10/04/24 at 12:49; Stop 10/04/24 at 12:50; Status DC Rocuronium [place] 50 mg STK-MED ONCE .ROUTE; Start 10/04/24 at 12:50; Stop 10/04/24 at 12:50; Status DC Lidocaine HCl 100 mg STK-MED ONCE .ROUTE; Start 10/04/24 at 12:51; Stop 10/04/24 at 12:51; Status DC Cefazolin Sodium 1 gm STK-MED ONCE .ROUTE; Start 10/04/24 at 13:37; Stop 10/04/24 at 13:38; Status DC Rocuronium [place] 50 mg STK-MED ONCE .ROUTE; Start 10/04/24 at 14:27; Stop 10/04/24 at 14:28; Status DC Ketorolac Tromethamine 15 mg ONCE ONCE IV Last administered on 10/04/24at 16:14; Start 10/04/24 at 16:30; Stop 10/04/24 at 16:31; Status DC Ketorolac Tromethamine 15 mg STK-MED ONCE .ROUTE; Start 10/04/24 at 16:11; Stop 10/04/24 at 16:11; Status DC Meropenem 1 gm/ Sodium Chloride 100 ml @ 33.333 mls/ hr Q8H IVPB; Start 10/04/24 at 16:30; Stop 10/04/24 at 16:30; Status DC Meropenem 1 gm Q8H IVPB Last administered on 10/06/24at 08:56; Start 10/04/24 at 17:00; Stop 10/14/24 at 16:59 Neostigmine Methylsulfate 10 mg STK-MED ONCE IV; Start 10/04/24 at 13:08; Stop 10/05/24 at 09:33; Status DC DEMETRICE BLANKENSHIP MD Oct 06, 2024 09:07
--- NOTE | 2024-10-06 09:56 | PN ---
[facility] PROGRESS NOTE Date Patient Seen: Oct 06, 2024 Time of Visit: 09:56 Supervising Physician: [ ] Primary Care Physician: [Dr. Mcallister ] Outpatient Specialists: [ ] Inpatient Consults: [GI: Dr. 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 Davenport Large Ventral Hernia with concern for strangulated omentum s/p ventral hernia repair with omentectomy 09/06/[address] Davenport Acute diverticulitis, s/p antibiotics and colonoscopy 09/02/[address] Franco Recent HX of Intractable abdominal pain with associated nausea and vomiting worsening over three-month with unintentional weight loss Polycystic liver disease Anemia of chronic disease Recent electrolyte derangement (hyponatremia, hypochloremia) Diabetes mellitus type 2 Chronic constipation History of total abdominal hysterectomy with bilateral salpingo-oophorectomy for complications related to endometriosis. History of liver cyst diagnosed in 1998 Vitamin-D deficiency Recent UTI in May, [id number] protein calorie malnutrition-POA HX of non-obstructive nephrolithiasis INTERVAL HISTORY: 10/04- Patient was seen and examined today by me at bedside with in room. The patient is very weak, deconditioned with obvious failure to thrive. The patient was jaundiced with liver enzymes elevated bilirubin MRCP has been done revealing a soft tissue mass concerning for cholangiocarcinoma measuring 2.6 x 3.4 cm. LFts continue elevated , bilirubin is 17.7, direct bilirubin is 14.2. AST 129 ALT 48 , with alkaline phosphatase at 1544. Alpha fetoprotein is normal, CEA is elevated at 46.3, CA 19 nine is elevated at 37, CA125 is elevated at 317. She was set to undergo Biopsy and Drain placement today however did receive a call later in the day that biopsy was not successful but 2 drains were placed. Radiologist did recommend Iv antibiotics and will reattempt biopsy, we will need clarification from Ir and Dr. Bartlett if this is to be done during this admission. Dr. Corbin did see the patient with me at bedside and is recommending follow up outpatient once drain and biopsy has been done. He did speak to Dr. Valverde about her case and she will be evaluated by him outpatient for possible surgical resection if she is a candidate ,if not then chemo-radiation may be an option Unfortunately she has not tolerated much PO and will need to get better from this prior to proceeding with more invasive interventions. She does not want PEG tube , at this time we have her on PPN and Marinol and soft diet. We can wean down PPN as diet is advanced. 10/05- Patient awake alert and oriented x 3. No major overnight events. Pt tolerating clear liquids minimally. she continues Jaundice s/p abdominal drain placement to rt and lt side of abdomen, Patient and at bedside. Informed him that pathology reports were resulted for Gall Bladder and Incarcerated Omentum, excision that was done on 09/06/2024. Results faxed to Dr Bartlett: Omentectomy tissue was positive for adenocarcinoma consistent with pancreaticobiliary origin. Pt and awaiting Dr Bartlett recommendations and prognosis. For now we will continue to treat s/s such as nausea with PRN medication and advance diet as tolerated. CBC similar to yesterday. Kidneys are well Cr 0.7, GFR 90 Total bili increasing 15 today, ast 89, Alk Phosphatase 1365, decreasing but still elevated. albumin 1.3. REVIEW OF SYSTEMS: 12 point ROS reviewed with patient. Pertinent positives mentioned above. Otherwise negative. PHYSICAL EXAM: GENERAL: alert, weak, awake oriented x 3, debilitated, deconditioned, jaundiced HEENT: EOMI, Icteric sclera, dry mucosa, dry tongue NECK: Supple, no JVD, trachea midline LUNGS: Clear breath sounds bilaterally. No wheezes HEART: Regular rate and rhythm. Normal S1 and S2, without murmurs, Tachycardia ABD: Abdomen soft, nontender. Bowel sounds present, Jaundiced, bilateral abdominal sides were swollen EXT: No clubbing or cyanosis, 2+ pitting edema on BLE, NEURO: Alert and oriented to person, follows commands Vital Signs (last 8hr) Date Time Temp Pulse Resp B/P (MAP) Pulse Ox O2 Delivery O2 Flow Rate FiO2 10/06/24 08:00 98.2 87 19 109/54 94 Room Air 21 10/06/24 04:00 97.5 87 20 118/58 96 Room Air LABS: Hematology Labs: Test 10/06/24 05:00 10/05/24 05:15 Range/Units White Blood Count 9.7 4.8-10.8 K/uL Red Blood Count 2.12 L 4.00-5.50 MIL/uL Hemoglobin 7.6 L 12.0-16.0 g/dL Hematocrit 22.5 L 36-48 % Mean Corpuscular Volume 106.1 H 79-99 fL Mean Corpuscular Hemoglobin 35.8 H 27.0-33.0 pg Mean Corpuscular Hemoglobin Concent 33.8 32.0-36.0 g/dL Red Cell Distribution Width 15.9 H 11.0-15.5 % Platelet Count 218 130-400 K/uL Mean Platelet Volume 8.4 7.5-10.5 fL Immature Granulocyte % (Auto) 1.6 H 0-1 % Neutrophils (%) (Auto) 81.5 H 40.0-77.0 % Lymphocytes (%) (Auto) 8.5 L 21.0-51.0 % Monocytes (%) (Auto) 7.3 3.0-13.0 % Eosinophils (%) (Auto) 0.9 0.0-8.0 % Basophils (%) (Auto) 0.2 0.0-5.0 % Neutrophils # (Auto) 7.9 H 1.8-7.7 K/uL Lymphocytes # (Auto) 0.8 L 1.0-4.8 K/uL Monocytes # (Auto) 0.7 0.1-1.0 K/uL Eosinophils # (Auto) 0.09 0.00-0.70 K/uL Basophils # (Auto) 0.02 0.00-0.20 K/uL Absolute Immature Granulocyte (auto 0.15 0-1 K/uL Nucleated Red Blood Cells 0.0 0.0-0.19 % White Cell Morphology Comment See comments Chemistry Labs: Test 10/06/24 06:23 10/06/24 05:00 10/05/24 05:15 Range/Units Whole Blood Glucose 129 H 70-110 MG/DL Sodium Level 136 136-145 mmol/L Potassium Level 3.5 3.5-5.1 mmol/L Chloride Level 106 101-111 mmol/L Carbon Dioxide Level 23 21-32 mmol/L Blood Urea Nitrogen 17 7-18 mg/dL Creatinine 0.7 0.5-1.0 mg/dL Glomerular Filtration Rate Calc 90 >90 mL/min Random Glucose 121 H 70-105 mg/dL Total Calcium 8.0 L 8.5-10.1 mg/dL Total Bilirubin 12.6 H 0.2-1.0 mg/dL Aspartate Amino Transf (AST/SGOT) 42 H 10-37 U/L Alanine Aminotransferase (ALT/SGPT) 20 # 12-78 U/L Alkaline Phosphatase 955 #*H 50-136 U/L Total Protein 4.6 L 6.0-8.3 g/dL Albumin 1.0 #L 3.5-5.0 g/dL Magnesium Level 2.00 1.80-2.40 mg/dL DIAGNOSTICS / RADIOLOGY RESULTS: [ ] PLAN PT eval and treat There is a plan for IR for percutaneous drainage tube was made the brushing of the common bile duct. Per oncology : stage IV pancreaticobiliary cancer. The patient is not surgical candidate. Only 1 option is to do palliative chemotherapy treatment the other option actually to do hospice. It seems they are refusing hospice at this time. If the patient stable she could be discharged to follow-up with me in the next week or 2 then decide regarding the plan of care. PT is DNR GI soft [place] diet follow LFT's and CBC daily NEURO: Minimize central acting medications as possible. Maintain fall precautions, adequate lighting during the day PULMONARY: Supplemental 02 as needed. Maintain aspiration precautions at all times CARDIOVASCULAR: Follow hemodynamics. Vital signs per facility protocol GI & NUTRITION: Continue with nutritional support.- advance to bland diet GI on case s/p drain placement and will need biopsy of Mass. Further clarification to be obtained from IR team . Continue stool softeners and laxatives as needed. Discussed malnutrtion recommend PpN for now and marinol Alternative means of nutrition will have to be decided if not tolerating KIDNEYS & ELECTROLYTES: Strict monitoring of intake, output and overall fluid balance. Avoid nephrotoxic medications to the extent possible. Medications to be dosed according to renal function. Monitor electrolytes and replace as needed ENDOCRINE: Maintain blood glucose between 100-180 at all times. Hypoglycemia protocol in place INFECTIOUS DISEASE: Trend temperature, WBC and procalcitonin level Follow cultures, deescalate antibiotics as soon as possible. Panculture if new onset fever ONCOLOGY/HEMATOLOGY/COAGULATION: Monitor for s/s of bleeding Monitor hemoglobin, coagulation studies as needed SKIN: Pressure ulcer prevention per facility protocol Specialty mattress ORTHO/REHAB: Continue PT/OT Prophylaxis: Continue GI and DVT prophylaxis Code Status: DNR - WITNESSED BY BEDSIDE MIGEL ROLDAN Disposition: Home once improved Other: Total patient care time: 45 minutes AJITH ALEX [facility] Oct 06, 2024 09:56
[2024-10-06 11:00] VITALS: BP 112/56; PULSE 92; RESP 18; TEMP 98.7
--- NOTE | 2024-10-06 11:35 | NUR ---
HOSPICE ORDER/ SW met with patient's spouse, Carlton Dutton, regarding MD order for hospice. Spouse stated that she wanted to take patient home today if possible. KD signed for [facility] and placed in chart Referral sent. Lola, Liaison for [facility] notified. Patient's spouse signed Out of Hospital Do Not Resuscitate and placed in chart. Copy sent to hospice. Patient's nurse updated of referral status.
--- NOTE | 2024-10-06 15:16 | NUR ---
PT recomendation: Wheelchair and 3-in-1 commode recommended upon DC d/t to pt's impaired LE muscle endurance and aerobic capacity.
--- NOTE | 2024-10-06 15:19 | DS ---
[facility] DISCHARGE SUMMARY Date Patient Seen: Oct 06, 2024 Time of Visit: 15:19 Supervising Physician: Casey Noriega MD Primary Care Physician: [Dr. Mcallister ] Outpatient Specialists: [ ] Inpatient Consults: [GI: Dr. 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 Davenport Large Ventral Hernia with concern for strangulated omentum s/p ventral hernia repair with omentectomy w/ BX 09/06/[address] Davenport Acute diverticulitis, s/p antibiotics and colonoscopy 09/02/[address] Franco Recent HX of Intractable abdominal pain with associated nausea and vomiting worsening over three-month with unintentional weight loss Polycystic liver disease Anemia of chronic disease Recent electrolyte derangement (hyponatremia, hypochloremia) Diabetes mellitus type 2 Chronic constipation History of total abdominal hysterectomy with bilateral salpingo-oophorectomy for complications related to endometriosis. History of liver cyst diagnosed in 1998 Vitamin-D deficiency Recent UTI in May, [id number] protein calorie malnutrition-POA HX of non-obstructive nephrolithiasis HOSPITAL COURSE: HPI Per discharge summary on 09/08/2024: " Ms. Dutton is a 74-year-old female who presented to [facility] ED as direct admit with the diagnosis of acute liver failure from the clinic. Per clinic VISUAL EDUCATOR the patient presented to the clinic crying thinking she was going to . She did blood work which showed the elevated an alkaline phosphatase of 921, total bilirubin 4.0, AST 45, ALT 36. The patient reported that since April she has been nauseated, complains of mid abdominal pain, and food intolerance. Patient reports that she been drinking the boost drinks due to anorexia, and she has lost 35 lb since April. Patient was initiated on IV fluids and antibiotics. She was found to be flu B positive and completed tamiflu for the same. She underwent ERCP 09/02 with 9mm ductal stone removal. She subsequently underwent endoscopy and colonoscopy without any acute findings. She was then recommended for laparoscopic cholecystectomy. Patient had a laparoscopic cholecystectomy and simultaneously had an abdominal hernia repair on 09/06. Patient was able to gradually advance diet and tolerated well. She denied any nausea, vomiting or abdominal pain. Was followed by general surgery and was cleared for discharge. Patient was weak given multiple procedures and was recommended for SNF upon discharge for continued physical therapy but was denied by her insurance. Patient's at bedside stated he would help care for the patient at home. She was able to ambulate with assistance." on 10/01/24 she returned to the ED after seeing her PCP, Dr. Mcallister for follow-up. She was told that her liver enzymes were not improving and "it even went up from 1000 to 1400." She was unable to identify the specifics of the lab nomenclature. She was instructed to go to the ED for further work-up. Patient claims that her appetite did not improve and she continues to only tolerate Boost and Glucerna shakes. She only drinks 1 bottle of 16-ounces of water everyday making her feel dehydrated. Although she can eat soft food, she just do not have the appetite to eat them. She reported that her vomiting is still persistent but her abdominal pain was gone. Negative for fever, chills, diarrhea, hematemesis, melena or hem atochezia. Dr. Franco was notified by the ED RN but no further orders or recommendations since the patient was still waiting in the lobby. MRCP cannot be done today per charge gang weigher and will only do it in the am. RUQ US pending results. Physical assessment was concerning for generalized jaundice without abdominal pain or tenderness, Ascites development on bilateral abdominal sides and 2+ pitting edema on BLE were noted. Goals of care were discussed with the patient verbalizing understanding and agreement. 10/02/24- Patient was seen and examined today by me at bedside with in room. The patient was very weak, deconditioned with obvious failure to thrive. The patient was jaundiced with liver enzymes elevated bilirubin at 21.2. 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 At this time we are pending further recommendations from Gastroenterology. Ultrasound of the lower extremities performed given bilateral lower extremity edema and above findings without evidence of thrombosis. CT scan of the abdomen and pelvis reveals small ascites with anasarca and diverticulitis. Hepatic cysts. Intrahepatic duct dilation with 9 mm right renal pelvic stone without hydronephrosis. Findings were discussed with patient and patient's family along , all questions answered. 10/03/24- weak, deconditioned with obvious failure to thrive. 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 Franco his recommended drain insertion and biopsy of mass. At this time CT-guided biopsy is not recommended and they are recommending MRI instead. IR Radiology we will discuss with Gastroenterology. Patient denies any abdominal pain but does have no appetite. We discussed the patient's malnutrition and recommendations for PPN at this time. Patient does not want to eat very much and is declining most foods. 10/04/24-LFts continue elevated , bilirubin is 17.7, direct bilirubin is 14.2. AST 129 ALT 48 , with alkaline phosphatase at 1544. Alpha fetoprotein is normal, CEA is elevated at 46.3, CA 19 nine is elevated at 37, CA125 is elevated at 317. She was set to undergo Biopsy and Drain placement today however did receive a call later in the day that biopsy was not successful but 2 drains were placed. Radiologist did recommend Iv antibiotics and will reattempt biopsy, we will need clarification from Ir and Dr. Bartlett if this is to be done during this admission . Dr. Bartlett did see the patient with me at bedside and is recommend ing follow up outpatient once drain and biopsy has been done. He did speak to Dr. Valverde about her case and she will be evaluated by him outpatient for possible surgical resection if she is a candidate ,if not then chemo-radiation may be an option. 10/05/24- Patient awake alert and oriented x 3. No major overnight events. Pt tolerating clear liquids minimally. she continues Jaundice s/p abdominal drain placement to rt and lt side of abdomen, Patient and at bedside. Informed him that pathology reports were resulted for Gall Bladder and Incarcerated Omentum, excision that was done on 09/06/2024. Results faxed to Dr Bartlett: Omentectomy tissue was positive for adenocarcinoma consistent with pancreaticobiliary origin. Pt and awaiting Dr Bartlett recommendations and prognosis. For now we will continue to treat s/s such as nausea with PRN medication and advance diet as tolerated. CBC similar to yesterday. Kidneys are well Cr 0.7, GFR 90 Total bili increasing 15 today, ast 89, Alk Phosphatase 1 365, decreasing but still elevated. albumin 1.3. 10/06/24- per oncologist patient has a stage IV pancreaticobiliary cancer. The patient is not surgical candidate. This was explained to patient and to her at bedside by oncologist. Patient status post palliative percutaneous drainage tube in place.Per oncology recommendation :only 1 option is to do palliative chemotherapy treatment the other option actually to do hospice. Per Dr Bartlett if stable for discharge pt can follow-up with me in the next week or 2 then decide regarding the plan of care. I spoke to patient and her in regards to goals of care now that oncologist had given them the Dx and prognosis with recs. Pt and want to be discharged with Hospice and I agree with their decision. beater worker helper was consulted and visited with pt in timely manner as they had requested. Referral was sent to [facility] as they had requested, Otherwise pt has been afebrile and hemodynamically stable. Ok for discharge home with hospice. I updated Dr Mcallister pt's PCP over the phone who assures she will contact pt on Tuesday. CHRONIC PROBLEMS: continue previous management per PCP unless otherwise indicated HEAD OF DESIGN FINDINGS/RECOMMENDATIONS: [ ] per oncology: . 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 Discussed with the patient and her in the room. I explained to them that the patient have stage IV pancreaticobiliary cancer. The patient is not surgical candidate. He expalined:explained to the patient that she have to option only 1 option is to do palliative chemotherapy treatment the other option actually to do hospice. It seems they are refusing hospice at this time. follow-up with me in the next week or 2 then decide regarding the plan of care patient should be at least DNR/DNI Per GI: Jaundice with elevated liver chemistries and abnormal abdominal imaging as above, indicating cholangiocarcinomaon MRCP Recommend biopsy of the liver lesion noted above. Check CEA and CA 19-9. Keep well hydrated. Daily weights. Oncology consultation. Follow up on missing pathology from her recent surgery on gallbladder and abdominal wall hernia with omentectomy. PROCEDURES: as mentioned above 10/01/24 right upper quadrant ultrasound impression- 1. Gallbladder has been removed. Intrahepatic and extrahepatic ductal dilatation is seen. Small ascites is seen. 2. No hydronephrosis is seen. 10/01/24 MRCP impression: 1. Markedly distended intrahepatic biliary tree, visible in both the right and left lobes. 2. Right and left main bile ducts did not reach confluence, there is a poorly defined soft tissue mass in the liver hilum at the confluence, rough measurements are 2.6 x 3.4 cm. This 3. 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 4. Otherwise unremarkable exam as discussed above. 10/01/24: CT abdomen and pelvis without contrast impression: 1. Small ascites. Anasarca. Diverticulosis. Hepatic cysts. Intrahepatic ductal dilatation. 9 mm right renal pelvic stone. No hydronephrosis. 10/02/24 ultrasound venous Doppler bilaterally impression: Normal bilateral lower extremity venous Doppler ultrasound. 10/04/24: Ultrasound guidance for percutaneous drain impression: Ultrasound guidance with percutaneous access into the right and left biliary ductal system. The remainder of the procedure was performed under fluoroscopic guidance. 10/04/24 Biliary drain placement impression: Percutaneous cholangiogram demonstrating High-grade obstructive lesion of the confluence of left and right biliary ducts. Access beyond the obstruction cannot be obtained. 8 [place] APDL drainage catheter was placed within the left and right biliary ducts respectively for external drainage. Repeat attempt to cross the obstructive lesion at the confluence of left and right biliary ductal will be made. Specimen submitted for cytology, Gram stain and cultures. DISCHARGE MEDICATIONS: per hospice Pt hemodynamically stable and afebrile at time of discharge. PCP notified of patients admission, hospital course and discharge. Continued Medications: [doCUSate SODIUM 100 MG CAP] () 100 MG CAPSULE 100 MG PO BID, #30 0 Refills PHYSICAL EXAM: GENERAL: alert, weak, awake oriented x 3, debilitated, deconditioned, jaundiced HEENT: EOMI, Icteric sclera, dry mucosa, dry tongue NECK: Supple, no JVD, trachea midline LUNGS: Clear breath sounds bilaterally. No wheezes HEART: Regular rate and rhythm. Normal S1 and S2, without murmurs, ABD: Abdomen soft, nontender. Bowel sounds present, Jaundiced, bilateral abdominal biliary drains EXT: No clubbing or cyanosis, 1+ pitting edema on BLE, NEURO: Alert and oriented to person, follows commands FOLLOW-UP: Follow-up with PCP in 2-[address] Mcallister Follow up with Oncologist Dr. Bartlett in 1-2 weeks. RECOMMENDATIONS: See Discharge Instructions DC home with hospice. This case was seen and discussed with my supervising physician. More than 30 minutes spent on discharge process, including evaluation of the patient, discussion with nursing staff, medication reconciliation and follow-up appointments AJITH ALEX [facility] Oct 06, 2024 15:19
--- NOTE | 2024-10-06 15:45 | NUR ---
REPORT CALLED TO [facility] AT THIS TIME. SPOKE TO KRISTI NORIEGA RN.
== END 2024-10-06 16:00 | disposition hospice, home (50) | DRG 435 ==
LOC: EDH 17:54 → EDHIP 19:02 → OBSVTOIN 19:02 → EDHIP 20:46 → 3CH 22:47
PROVIDERS: ADMIT Internal Medicine; ATTEND Internal Medicine
PROC: 0F9630Z Drainage of Left Hepatic Duct with Drainage Device, Percutaneous Approach (ICD-10-PCS; principal; 2024-10-05)
PROC: 0F9530Z Drainage of Right Hepatic Duct with Drainage Device, Percutaneous Approach (ICD-10-PCS; 2024-10-05)
PROC: BF101ZZ Fluoroscopy of Bile Ducts using Low Osmolar Contrast (ICD-10-PCS; 2024-10-05)
PROC: 0FJB3ZZ Inspection of Hepatobiliary Duct, Percutaneous Approach (ICD-10-PCS; 2024-10-05)
DX: C22.1 Intrahepatic bile duct carcinoma (principal); E43 Unspecified severe protein-calorie malnutrition; K83.1 Obstruction of bile duct; Q44.6 Cystic disease of liver; E87.1 Hypo-osmolality and hyponatremia; K57.32 Diverticulitis of large intestine without perforation or abscess without bleeding; R18.8 Other ascites; R62.7 Adult failure to thrive; E86.0 Dehydration; D63.8 Anemia in other chronic diseases classified elsewhere; E87.8 Other disorders of electrolyte and fluid balance, not elsewhere classified; R43.0 Anosmia; R43.2 Parageusia; E78.5 Hyperlipidemia, unspecified; J10.1 Influenza due to other identified influenza virus with other respiratory manifestations; E11.9 Type 2 diabetes mellitus without complications; K59.09 Other constipation; I10 Essential (primary) hypertension; E55.9 Vitamin D deficiency, unspecified; Z90.49 Acquired absence of other specified parts of digestive tract; Z87.442 Personal history of urinary calculi; Z90.710 Acquired absence of both cervix and uterus; Z87.440 Personal history of urinary (tract) infections; Z68.20 Body mass index [BMI] 20.0-20.9, adult; Z66 Do not resuscitate; Z79.899 Other long term (current) drug therapy
CPT/HCPCS: 36415; 47534; 49405; 74176; 74183; 76705; 80048; 80053; 80076; 81001; 82103; 82105; 82247; 82248; 82306; 82330; 82378; 82607; 82948; 82977; 83690; 83735; 83880; 84100; 85025; 85610; 85730; 86304; 86316; 86850; 86900; 86901; 87071; 87086; 87186; 87205; 93970; 94664; 96365; 96366; 96375; 99285; C1769; C1894; G0378; J0690; J1644; J1885; J2003; J2185; J2250; J2405; J2704; J2710; J3010; J3475; J3490; Q0167; Q9967; A9575; C1729